=== PATIENT | female | born 1995 | race African-American/Black ===

== ENCOUNTER 2020-09-21 07:32 | Observation (INO) | payer OTHER, SELFPAY ==
--- NOTE | 2020-09-21 07:56 | OBADM ---
This patient, Ashlee Hatch, admitted to the OB room OB Post 116 for observation. Patient/family oriented to hospital policies and general routines including ID bracelet, bed and alarms, visiting hours, pain management, procedures, bathroom and other care routines, personal items, smoking policy, room service/diet, and visiting hours. Patient/Family are encouraged to report perceived risks to care and to ask questions if they do not understand what they are told or what they should do.
[2020-09-21 08:01] VITALS: BP 112/65; PULSE 83
[2020-09-21 08:03] LABS: Add Urine Microscopic? YES; Appearance Urine Cloudy (Clear); Bacteria Urine 1+ /hpf; Bilirubin Urine Negative (Negative); Blood Urine Negative (Negative); Color Urine Straw (Yellow); Glucose Urine UA Negative (Negative); Ketones Urine Negative (Negative); Leukocyte Esterase Ur Trace LEU/UL (Negative); Nitrate Urine Negative (Negative); Protein Urine Negative (Negative); RBC Urine 0-2 /hpf (0-2); Specific Grav Ur 1.006 (1.001-1.035); Squamous Epithelial Cell Urine Few /hpf (Few); Urobilinogen Urine Negative mg/dL (<2.0)
[2020-09-21 08:16] VITALS: BP 108/70; PULSE 83
--- NOTE | 2020-09-21 08:41 | PC.NURSE ---
8626- Spoke with Dr. Arenas, reveiwed NST tracing. Patient states she is feeling tightening about every 10 minutes, but now feeling the baby just moving more. NST reactive, one contraction noted. Orders to discharge patient to home, with follow up in office this week. Patient to stay well hydrated at home. labor precautions given.
--- NOTE | 2020-09-21 17:58 | PM.OBTRLD ---
OB - Triage/Final Diagnosis Visit Information Reason for evaluation: threatened labor Evaluation Baseline heart rate: 140 Variability: Average (6-10) monitor accelerations: Present monitor decelerations: None Cervical dilation (cm): 0 Cervical effacement (%): 0 station: -4 Laboratory results: Laboratory Tests 09/21/20 07:53 Urine Color Straw Urine Appearance Cloudy H Urine pH 8.0 Ur Specific [place] 1.006 Urine Protein Negative Urine Glucose (UA) Negative Urine Ketones Negative Ur Blood (Man) Negative Urine Nitrate Negative Urine Bilirubin Negative Urine Urobilinogen Negative Leukocyte Esterase Rfl Trace H Urine RBC 0-2 Urine WBC 4-6 H Ur Squamous Epith Cells Few Urine Bacteria 1+ H Hyaline Casts 1-2 Final Diagnosis (1) False labor: Code(s): O47.9 - False labor, unspecified Status: Acute
== END 2020-09-21 08:45 | disposition home or self-care (01) ==
PROVIDERS: Admitting Provider Obstetrics & Gynecology; Visit Provider Obstetrics & Gynecology
DX: O47.03 False labor before 37 completed weeks of gestation, third trimester (principal); Z3A.34 34 weeks gestation of pregnancy
CPT/HCPCS: 81001; G0378; G0379

== ENCOUNTER 2020-10-23 04:40 | Inpatient (IN) | payer OTHER, SELFPAY ==
--- NOTE | 2020-10-21 18:46 | PM.IMHP ---
H&P: HPI History of Present Illness Date/Time: 10/23/20 0600 Chief complaint: Pre-admit Narrative: Ashlee Hatch is a 25 year old AAF, , presents for IOL at 39weeks Two prior NSVVD with inductions. c/b abnormal progesterone, HSV, GBS, obesity on antiviral and antibiotic treatment, Informed consent obtained Review of Systems Review of Systems: All systems reviewed & are unremarkable except as noted in HPI and below Constitutional: Constitutional: Reports no additional constitutional complaints Eyes: Eyes: Reports no additional eye complaints ENT: Reports system reviewed and no additional complaints, except as documented Cardiovascular: Cardiovascular: Reports no additional cardiovascular complaints Respiratory: Respiratory: Reports no additional respiratory complaints Gastrointestinal: Gastrointestinal: Reports no additional gastrointestinal complaints Genitourinary: Genitourinary: Reports no additional female genitourinary complaints Musculoskeletal: Musculoskeletal: Reports no additional musculoskeletal complaints Integumentary/Breasts: Skin/Breast: Reports system reviewed and no additional complaints, except as docu Neurologic: Reports system reviewed and no additional complaints, except as documented Psychiatric: Psychiatric: Reports no additional psychiatric complaints Endocrine: Endocrine: Reports no additional endocrine complaints Hematologic/Lymphatic: Hematologic/Lymphatic: Reports no additional hematologic/lymphatic complaints Allergic/Immunologic: Allergic/Immunologic: Reports no additional allergic/immunologic complaints PMFSH Past Medical History Medical History (Updated 10/21/20 @ 18:57 by Harvinder Arenas MD) GBS (group B Streptococcus carrier), +RV culture, currently HSV (herpes simplex virus) anogenital infection Obesity Vaginal delivery 06-06-2016, 39.6 wks 1. M, 8lbs 7oz, Vaginal Vaginal delivery 08-14-2017, 38.5 wks 1. M, 8lbs 1oz, Vaginal Surgical History Surgical History (Updated 10/21/20 @ 18:55 by Harvinder Arenas MD) H/O umbilical hernia repair 12/14/17 Family History Family History (Updated 10/21/20 @ 18:58 by Harvinder Arenas MD) Sibling Asthma Grandparent Diabetes mellitus Social History Social History (Updated 10/21/20 @ 18:58 by Harvinder Arenas MD) Smoking status: Never smoker Second hand tobacco smoke exposure: No Alcohol intake: never Substance use: never Living arrangements: with family Occupation/Education: occupation Gender identity (if verbalized by the patient): Female Sexual Orientation (if Verbalized by the Patient): Straight or Heterosexual Spiritual care concerns: No Agree to blood products: Yes Meds Home Medications and Allergies Home Medications Medication Instructions Recorded Confirmed Type Daily 1 pkg PO DAILY 09/21/20 09/28/20 History progesterone micronized 200 mg PO BID 09/21/20 09/28/20 History acyclovir 800 mg PO DAILY 09/28/20 09/28/20 History Allergies Allergy/AdvReac Type Severity Reaction Status Date / Time No Known Allergies Allergy Unverified 06/05/16 21:44 Exam Const: General: cooperative, healthy appearing, comfortable, no acute distress, well developed, alert, awake and Physically active Nutritional Appearance: average body habitus, well nourished and obese Orientation/consciousness: patient oriented x3 Limitations: no limitations HENMT: Head: normal to inspection Eyes: General: appearance normal, both eyes and all related structures Neck: Neck: normal visual inspection and full ROM Chest: Chest palpation & inspection: normal inspection of the chest Breast/axilla inspection: normal inspection of the breasts Breast/axilla palpation: normal palpation of the breasts Resp: Effort & Inspection: normal respiratory effort Auscultation: clear to auscultation bilaterally Cardio: Palpation: normal PMI Rate: regular rate Rhythm: regul
--- NOTE | 2020-10-21 18:52 | WPDHPUPDATE1 ---
History and Physical Update Update Date/Time: 10/21/20 18:52 History and Physical has been reviewed, including an updated exam of the patient. There are NO changes in the patient's condition. Risks, benefits, and alternatives have been discussed and questions answered. Patient agrees to proceed with procedure. Ashlee Hatch is a 25 year old AAF, , presents for IOL at 39weeks Two prior NSVVD with inductions. c/b abnormal progesterone, HSV, GBS, obesity on antiviral and antibiotic treatment, Informed consent obtained
--- NOTE | 2020-10-21 18:53 | WPDOBADMIT ---
Obstetrics - Admit Note Admission Note: record reviewed. No pertinent additions to the history and/or any subsequent changes in the physical findings that are not consistent with the expected course of the were found. Additions to the history and/or subsequent changes in the physical findings follow. None. Ashlee Hatch is a 25 year old AAF, , presents for IOL at 39weeks Two prior NSVVD with inductions. c/b abnormal progesterone, HSV, GBS, obesity on antiviral and antibiotic treatment, Informed consent obtained
[2020-10-23] VITALS (38 sets, daily range): BP systolic 87–163; BP diastolic 42–140; PULSE 58–98; RESP 16–20; TEMP 36.4–36.9; O2SAT 98–100; BMI 37.8
--- NOTE | 2020-10-23 05:07 | LDADM ---
This patient, Ashlee Hatch, was admitted to Labor/Delivery/Recovery 102 on 10/23/20 at 04:40. Plans for labor, pain management and were discussed with patient. Patient/family oriented to hospital policies and general routines including ID bracelet, bed and alarms, visiting hours, pain management, procedures, bathroom and other care routines, personal items, smoking policy, room service/diet and guest tray routines, security routines, and visiting hours. Patient/Family are encouraged to report perceived risks to care and to ask questions if they do not understand what they are told or what they should do. See OBIX for further documentation.
[2020-10-23] MEDS: AMPICILLIN 2 GM/NS 100 ML 2 GM/100 ML BAG IVPB (05:21)
[2020-10-23] MEDS: LACTATED RINGERS 1,000 ML 125 ML IV CONT ×3 (05:22→12:47)
[2020-10-23 05:32] LABS: Basophils Percent Auto 0.2 % (0.2-1.2); Eosinophils Absolute Auto 0.1 K/mm3 (0-0.3); Eosinophils Percent Auto 0.6 % (0-4.4); Hematocrit 35.9 % (37.0-47.0); Hemoglobin 12.1 g/dL (12.0-15.0); Immature Granulocyte Absolute 0.05 K/mm3 (0.00-0.031); Immature Granulocyte Percent A 0.5 % (0-0.5); Lymphocytes Absolute Auto 2.07 K/mm3 (0.9-3.2); Lymphocytes Percent Auto 21.4 % (18.3-44.2); Mean Corpuscular HGB Conc 33.7 g/dl (32-36); Mean Corpuscular Hemoglobin 29.9 pg (26-34); Mean Corpuscular Volume 88.6 fl (80-100); Mean Platelet Volume 10.5 fl (7.4-10.4); Monocytes Absolute Auto 0.9 K/mm3 (0.1-0.6); Monocytes Percent Auto 8.8 % (2.6-8.5); Neutrophils Absolute Auto 6.6 K/mm3 (1.3-6.7); Neutrophils Percent Auto 68.5 % (45.5-73.1); Platelet Count Result 270 k/mm3 (150-375); Red Blood Count 4.05 M/mm3 (4.2-5.4); Red Cell Distribution Width 12.8 % (11.5-14.5); White Blood Count 9.7 K/mm3 (4.5-10.0)
[2020-10-23 05:46] LABS: Amphetamine Screen Urine Negative (Negative); Barbiturate Screen Urine Negative (Negative); Benzodiazepines Screen Urine Negative (Negative); Cannabinoid Screen Urine Negative (Negative); Cocaine Screen Urine Negative (Negative); Methadone Screen Urine Negative (Negative); Opiate Screen Urine Negative (Negative); Phencyclidine Screen Urine Negative (Negative)
[2020-10-23] MEDS: OXYTOCIN 30 UNITS/NS 500 ML 30 UNITS/500 ML BAG IV CONT (05:57)
--- NOTE | 2020-10-23 06:13 | WPDANESEPP ---
Anes - Eval Pre Procedure Procedure: labor epidural Date/Time: 10/23/20 06:13 Surgeon: lizzie Pre Op Diagnosis: Induction of Labor Patient Data Age: 25 Gender: F Height: 1.63 m Weight: 100 kg Last Vital Signs Pulse 73 10/23/20 06:01 BP 103/56 L 10/23/20 06:01 Allergies Allergy/AdvReac Type Severity Reaction Status Date / Time No Known Allergies Allergy Unverified 06/05/16 21:44 Home Medications Medication Instructions Recorded Confirmed Type Daily 1 pkg PO DAILY 09/21/20 09/28/20 History progesterone micronized 200 mg PO BID 09/21/20 09/28/20 History acyclovir 800 mg PO DAILY 09/28/20 09/28/20 History Laboratory Tests 10/23/20 10/23/20 10/23/20 05:09 05:09 05:11 WBC 9.7 K/mm3 K/mm3 (4.5-10.0) RBC 4.05 M/mm3 L M/mm3 (4.2-5.4) Hgb 12.1 g/dL g/dL (12.0-15.0) Hct 35.9 % L % (37.0-47.0) MCV 88.6 fl fl (80-100) MCH 29.9 pg pg (26-34) MCHC 33.7 g/dl g/dl (32-36) RDW 12.8 % % (11.5-14.5) Plt Count 270 k/mm3 k/mm3 (150-375) MPV 10.5 fl H fl (7.4-10.4) Immature Gran % (Auto) 0.5 % % (0-0.5) Neut % (Auto) 68.5 % % (45.5-73.1) Lymph % (Auto) 21.4 % % (18.3-44.2) [place] % (Auto) 8.8 % H % (2.6-8.5) Eos % (Auto) 0.6 % % (0-4.4) Baso % (Auto) 0.2 % % (0.2-1.2) Lymph # (Auto) 2.07 K/mm3 K/mm3 (0.9-3.2) [place] # (Auto) 0.9 K/mm3 H K/mm3 (0.1-0.6) Eos # (Auto) 0.1 K/mm3 K/mm3 (0-0.3) Baso # (Auto) 0.0 K/mm3 K/mm3 (0.0-0.1) Abs Immat Gran (auto) 0.05 K/mm3 H K/mm3 (0.00-0.031) Absolute Neuts (auto) 6.6 K/mm3 K/mm3 (1.3-6.7) Absolute Nucleated RBC 0.0 K/mm3 K/mm3 (0.0-0.012) Nucleated RBC % 0.0 % % (0.0-0.2) Urine Opiates Screen Negative (Negative) Urine Methadone Screen Negative (Negative) Ur Barbiturates Screen Negative (Negative) Ur Phencyclidine Scrn Negative (Negative) Ur Amphetamine Screen Negative (Negative) U Benzodiazepines Scrn Negative (Negative) Urine Cocaine Screen Negative (Negative) U Cannabinoids Screen Negative (Negative) RPR Pending Patient hx anesthesia problems: none Family hx anesthesia problems: none PMFSH Past Medical History Medical History (Updated 10/21/20 @ 18:57 by Harvinder Arenas MD) GBS (group B Streptococcus carrier), +RV culture, currently HSV (herpes simplex virus) anogenital infection Obesity Vaginal delivery 06-06-2016, 39.6 wks 1. M, 8lbs 7oz, Vaginal Vaginal delivery 08-14-2017, 38.5 wks 1. M, 8lbs 1oz, Vaginal Surgical History Surgical History (Updated 10/21/20 @ 18:55 by Harvinder Arenas MD) H/O umbilical hernia repair 12/14/17 Family History Family History (Updated 10/21/20 @ 18:58 by Harvinder Arenas MD) Sibling Asthma Grandparent Diabetes mellitus Social History Social History (Updated 10/21/20 @ 18:58 by Harvinder Arenas MD) Smoking status: Never smoker Second hand tobacco smoke exposure: No Alcohol intake: never Substance use: never Gender identity (if verbalized by the patient): Female Spiritual care concerns: No Agree to blood products: Yes Exam Day of Procedure 10/23/20 06:13
--- NOTE | 2020-10-23 09:28 | PM.OBPNLAB ---
Pain Control Date/time seen: 10/23/20 09:28 Pain control: tolerating well Comments: Ashlee Hatch is a 25 year old AAF, , presents for IOL at 39weeks Two prior NSVVD with inductions. c/b abnormal progesterone, HSV, GBS, obesity on antiviral and antibiotic treatment, Informed consent obtained Pelvic Exam Dilation (cm): 2 Effacement (%): 75 station: -2 Amniotic membrane status: Ruptured (AROM clear af IUPC placed) Contractions Monitor mode: Internal (iupc/ext fht) Contraction frequency: 2 Contraction duration: 45 Contraction pattern: Regular Contraction phase: Contraction Contraction intensity: Moderate Status status: Category l Assessment and Plan Pitocin rate (mU/min): 10 Assessment: induction ongoing Plan: continuous present management
[2020-10-23] MEDS: AMPICILLIN 1 GM/NS 50 ML 1 GM/50 ML BAG IVPB ×2 (09:31→14:07)
[2020-10-23 12:03] LABS: Rapid Plasma Reagin Non-Reactive (NonReactive)
[2020-10-23] MEDS: fentaNYL CITRATE INJ (*CRX) 100 MCG/2 ML VIAL IV PUSH ×2 (12:47→14:07)
--- NOTE | 2020-10-23 14:12 | PM.OBPNLAB ---
Pain Control Date/time seen: 10/23/20 14:12 Pain control: tolerating well and narcotic analgesia Comments: Ashlee Hatch is a 25 year old AAF, , presents for IOL at 39weeks Two prior NSVVD with inductions. c/b abnormal progesterone, HSV, GBS, obesity on antiviral and antibiotic treatment, Informed consent obtained Pelvic Exam Dilation (cm): 6 Effacement (%): 90 station: -1 Amniotic membrane status: Ruptured (AROM clear af IUPC placed) Contractions Monitor mode: Internal (iupc/ext fht) Contraction frequency: 2 Contraction duration: 45 Contraction pattern: Regular Contraction phase: Contraction Contraction intensity: Moderate Status status: Category l Assessment and Plan Pitocin rate (mU/min): 12 Assessment: active labor and induction ongoing Plan: continuous present management
[2020-10-23] MEDS: ONDANSETRON INJ 4 MG/2 ML VIAL IV PUSH (14:15)
--- NOTE | 2020-10-23 14:53 | PM.OBPRVD ---
OB - Delivery Note Procedure Delivery date: 10/23/20 Procedure: Normal spontaneous vertex vaginal delivery a viable male infant and placenta events: Labor Induction Intrapartal events: None Induction method: per pitocin protocol Delivery augmentation: rupture of membranes Delivery monitor: external FHT and internal uterine Route of delivery: Episiotomy description: None Laceration Description: None Specimen: Yes ( placenta, cord blood gases, cord blood) Quantitative Blood Loss (ml): 150 Anesthesia type: None Disposition: floor Complications: none Narrative: normal spontaneous vertex vaginal delivery a viable male over intact perineum delivered with normal anterior shoulder delivered placed onto the maternal abdomen cord clamped and cut baby evaluated by nursery nurse in attendance scores 8 9 weight 53218 in long. Placenta delivered spontaneously intact three-vessel cord the uterus contracted well Pitocin given intravenously no cuts tears or lacerations sponge and needle instrument counts were correct in LDR room 1. 0 2 Baby Date of : 10/23/20 Time of : 14:44 Weeks of gestation at delivery: 39 gender: Male Weight (pounds): 6 Weight (ounces): 12 presentation: vertex position: Left Occiput Anterior Placenta delivery description: Spontaneous and Normal Configuration cord vessel description: 3 Vessels score one minute: 8 score five minutes: 9 Narrative: spontaneous respirations and cry ,normal transition, normal exam, taken to nursery stable condition
--- NOTE | 2020-10-23 15:00 | PM.OBDSVD ---
DS: Admitting Diagnosis Admitting Diagnosis Admitting Diagnosis: Induction of Labor Term HSV GBS carrier Obesity DS: Discharge Diagnosis Discharge Diagnosis (1) Term delivered: Code(s): O80 - Encounter for full-term uncomplicated delivery Status: Acute (2) Obesity: Code(s): E66.9 - Obesity, unspecified Status: Acute (3) GBS (group B Streptococcus carrier), +RV culture, currently : Code(s): O99.820 - Streptococcus B carrier state complicating Status: Acute (4) HSV (herpes simplex virus) anogenital infection: Code(s): A60.9 - Anogenital herpesviral infection, unspecified Status: Acute (5) Elective induction of labor planned: Status: Acute OB - DS: Summary Hospital Course Time spent discussing smoking cessation with patient: 3 to 10 minutes OB Procedures : Ultrasound OB Procedures Intrapartum: Spontaneous Vag Delivery and GBS prophylaxis OB Procedures: : None Peripartum Data Infant Delivery Method: Natural Vaginal Laceration Description: None Episiotomy description: None complications: none 1: Gender: Male Disposition of : home Status at Discharge Functional status at discharge: independent ambulation Overall status at discharge: patient is back to baseline Time Spent with Patient Time attestation: Total time spent providing and/or coordinating discharge services: Time spent: Less than 30 minutes DS: Data Data Completed and Pending Labs on day of discharge: Labs from last 24 hours 10/23/20 10/23/20 10/23/20 05:11 05:09 05:09 WBC RBC Hgb Hct MCV MCH MCHC RDW Plt Count MPV Immature Gran % (Auto) Neut % (Auto) Lymph % (Auto) [place] % (Auto) Eos % (Auto) Baso % (Auto) Lymph # (Auto) [place] # (Auto) Eos # (Auto) Baso # (Auto) Abs Immat Gran (auto) Absolute Neuts (auto) Absolute Nucleated RBC Nucleated RBC % Urine Opiates Screen Negative Urine Methadone Screen Negative Ur Barbiturates Screen Negative Ur Phencyclidine Scrn Negative Ur Amphetamine Screen Negative U Benzodiazepines Scrn Negative Urine Cocaine Screen Negative U Cannabinoids Screen Negative RPR Non-reactive Blood Type B Positive Antibody Screen Negative 10/23/20 05:09 WBC 9.7 RBC 4.05 L Hgb 12.1 Hct 35.9 L MCV 88.6 MCH 29.9 MCHC 33.7 RDW 12.8 Plt Count 270 MPV 10.5 H Immature Gran % (Auto) 0.5 Neut % (Auto) 68.5 Lymph % (Auto) 21.4 [place] % (Auto) 8.8 H Eos % (Auto) 0.6 Baso % (Auto) 0.2 Lymph # (Auto) 2.07 [place] # (Auto) 0.9 H Eos # (Auto) 0.1 Baso # (Auto) 0.0 Abs Immat Gran (auto) 0.05 H Absolute Neuts (auto) 6.6 Absolute Nucleated RBC 0.0 Nucleated RBC % 0.0 Urine Opiates Screen Urine Methadone Screen Ur Barbiturates Screen Ur Phencyclidine Scrn Ur Amphetamine Screen U Benzodiazepines Scrn Urine Cocaine Screen U Cannabinoids Screen RPR Blood Type Antibody Screen Discharge Plan Discharge Attending physician on discharge: Harvinder Arenas Discharging Clinician: Harvinder Arenas Anticipated Discharge Date/Time: 10/25/20 15:02 Patient Disposition: Home, Self-Care Activity: may shower, unlimited and may drive after 2 weeks Diet: as tolerated and regular Wound Care Instructions: follow printed instructions Discharge Instructions: routine Patient Instructions: Antibiotic Form Stand Alone Forms: General Discharge Information Follow-up/Referrals: Harvinder Arenas MD [Physician] - 3 Weeks Discharge Medications: New ibuprofen 600 mg Tablet 600 mg PO Q6H Qty: 90 RF: 2 polysaccharide iron complex 150 mg iron Capsule 150 mg PO BIDWM Qty: 90 RF: 2 Continued acyclovir 800 mg Tablet 800 mg PO DAILY RF: 0 Daily [phone] mg-mcg-mg Combo Pack 1 pkg PO ALLAN
[2020-10-23] MEDS: OXYTOCIN 30 UNITS/NS 500 ML 30 UNITS/500 ML BAG 125 UNITS IV CONT (15:35)
[2020-10-23] MEDS: HYDROcodone/acetaminophen (*CRX) 5-325 MG TABLET 1 TAB PO (16:23)
[2020-10-23] MEDS: IBUPROFEN 600 MG TABLET PO ×2 (16:24→23:30)
--- NOTE | 2020-10-23 17:10 | PC.NURSE ---
Patient transferred to post room #290 ambulatory from labor and delivery. Support person present. Oriented to unit, room, information board, rooming in, admission packet and security measures. Patient verbalizes understanding.
[2020-10-23] MEDS: COSYNTROPIN 0.25 MG/ML VIAL 0.75 MG IV PUSH (19:05)
[2020-10-24 06:21] LABS: Hematocrit 31.5 % (37.0-47.0); Hemoglobin 10.5 g/dL (12.0-15.0)
[2020-10-24 10:51] VITALS: BP 96/53; PULSE 81; RESP 16; TEMP 36.6; O2SAT 99
[2020-10-24] MEDS: IBUPROFEN 600 MG TABLET PO (10:51)
[2020-10-24] MEDS: DOCUSATE SODIUM 100 MG CAPSULE PO (10:51)
--- NOTE | 2020-10-24 19:21 | PC.NURSE ---
1711 Called [facility] in [place] on [facility] to see if the prescription of Ibuprofen and Iron had been sent due to it not showing up on the D/C papers. The Pharmacist stated that no prescription was there for this pt. The pt was told to get these over the counter. She V/U'd.
--- NOTE | 2020-10-24 19:28 | PC.NURSE ---
1739 FOB brought car seat and base to the room. He was informed that the base needed to go back to the car and he needed to install it and that we do not do that we just need to hear the car seat click down into the installed base. He V/U'd. 1749 FOB carried infant in the car seat out to the car after this RN showed MOB how to strap infant into the seat and make sure that the seat belts were fastened properly. She V/U'd. As FOB was clicking the down into the base the base partly fell into the floor of the car. FOB was informed that the base needed to be installed into the seat belt properly so it would not fall like that. This RN recommended we take infant back into the lobby while he did this. FOB was a bit agitated and rushed the infant back into the lobby before the MOB and this RN could even get in there and he left the infant on the bench and rushed back to the car. This RN and the MOB reached the soon after. The was safe. The FOB was out at the car in the back seat supposedly installing the base properly. He rushed back to the lobby in about 5 minutes and stated the seat was ready. This RN stated that there was no reason to hitchcock that we had time and the was emergency medicine physician his car seat. When the FOB tried to the infant in the base the second time it was apparent that the seat belt was not fastened to the base and the FOB put the car seat into the base anyway. This RN stated that this was not the correct way to install the base and car seat. The FOB continued to put the seat belt on over the car seat and base together without the base being fastened into the car. The MOB stated that the car seat can be installed 2 ways. After the FOB fastened the seat belt over the improperly installed car seat and base. He said thank you and have a good evening and shut the back car door and ran around to the drivers seat and got into the car. This RN motioned for the MOB to roll down the window she did. This RN stated to both the FOB and the MOB for the safety of your baby you need to re install the car seat properly. The FOB was very agitated and interrupted by screaming major profanity and stated That I had already taken up too much of his time and he was leaving if I did back away from the [employer] car then he put the car into park and got out and started to run around the car towards me. I walked over to the lobby window and motioned for the Simulation Analyst to come out. The FOB got back into the car and sped away. The FOB smelled like skunk and so did the car. The FOB eyes were glossed over and he was in a hurry and very agitated by all of this. This was reported to the infrastructure security architect on duty and the next shift factory helper and Dr. Francisco.
--- NOTE | 2020-10-25 16:05 | PC.NURSE ---
10/24/2020 @ 0513 Patient was given the opportunity to view the discharge video Mother & Baby Care, The First Two Weeks and to ask questions. Patient declined viewing the video and has been given the mother/baby guide for home reference.
== END 2020-10-24 17:50 | disposition home or self-care (01) | DRG 560 ==
LOC: ANHLDR 15:06 → ANHOB2 17:17
PROVIDERS: Admitting Provider Obstetrics & Gynecology; Visit Provider Obstetrics & Gynecology
DX: O99.824 Streptococcus B carrier state complicating childbirth (principal); O98.32 Other infections with a predominantly sexual mode of transmission complicating childbirth; A60.00 Herpesviral infection of urogenital system, unspecified; O99.214 Obesity complicating childbirth; E66.9 Obesity, unspecified; Z3A.39 39 weeks gestation of pregnancy; Z37.0 Single live birth
CPT/HCPCS: 36415; 80307; 85014; 85018; 85025; 86592; 86850; 86900; 86901; 88307; A9270; J0290; J0834; J2405; J2590; J2795; J3010; J7120

== ENCOUNTER 2025-01-27 12:46 | Outpatient (CLI) | payer OTHER, SELFPAY ==
--- NOTE | ~2025-01-27 | US_ITS ---
EXAMINATION: US OB <= 14 weeks fetus DATE: 01/28/2025 0:23 CDT INDICATION: Positive test COMPARISON: None TECHNIQUE: Real-time transabdominal obstetric ultrasound. FINDINGS: Last menstrual period is given as 10/14/2024 4 para 3 Estimated date of delivery by last menstrual period is 07/21/2025 The uterus measures 9.9 x 7 0.70, 6.3 cm. A gestational sac is identified within the uterus. A pole is identified, with a crown-rump length that measures 4.1 cm, corresponding to an approx imate gestational age of 11 weeks and 0 days. cardiac activity is identified at a rate of 175 bpm. Despite prolonged interrogation, the right ovary was not visualized. The left ovary measures 2.9 x 1.9 x 2.1 cm. Estimated date of delivery by ultrasound is 08/18/2025 IMPRESSION: Single intrauterine gestation with an approximate gestational age of 11 weeks and 0 days, with cardiac activity identified. Reviewed, dictated and finalized at location A. IMPRESSION: Single intrauterine gestation with an approximate gestational age of 11 weeks a nd 0 days, with cardiac activity identified.
--- OUTSIDE RECORDS SUMMARY | 2025-01-27 15:05 | XMS_ITS | Data Portability ---
Author Organization [facility] Address [address] [place] [address] Care Team Providers Care Blue Leather Sorter Name Role Phone MARISSASAY ANTONIO Invoice Checker [phone] Assessment Encounter Date Assessment Date Assessment LastModified by Organization Details LastModified Time 10/13/2022 10/13/2022 SUSSY Seymour Not available 10/13/2022 09:24:11 Plan of Treatment Reminders Order Date Submit Date Provider Last Modified By Organization Details Last Modified Time Details Appointments NEW OB 30 2024 01:30P M DAVIN PARK PA-C Not available Not available Not available Lab urinaly sis, dipstic k 2024 025 [email or web address] In-Office Order, Internal Use Only DO Not Attach Compendium DO Not Attach Compendium, Do Not Delete/merge, [id number] 01/16/2025 15:33:38 pregnan cy test, urine 2024 025 [email or web address] In-Office Order, Internal Use Only DO Not Attach Compendium DO Not Attach Compendium, Do Not Delete/merge, [id number] 01/16/2025 15:33:38 HCG, intact + beta subunit , quant, serum or plasma 2024 025 [facility], [address], [address] [address], [place], [address], 12/10/2024 14:13:33 pregnan cy test, urine 2024 025 HEATHER In-Office Order, Internal Use Only DO Not Attach Compendium DO Not Attach Compendium, Do Not Delete/merge, [id number] 12/09/2024 16:03:08 pap, IG + reflex HPV 2022 023 [place] [facility], 2022 Mari [address], [address], [place], [address], 11/02/2023 20:08:42 pregnan cy test, urine 2022 023 [email or web address] In-Office Order, Internal Use Only DO Not Attach Compendium DO Not Attach Compendium, Do Not Delete/merge, [id number] 10/31/2023 10:23:58 chlamyd ia trachom atis + neisser ia gonorrh oeae + trichom onas vaginal is DNA panel, SHAYAN+pro be, unspeci fied specime n 2022 023 [place] [facility], 2022 Mari [address], [address], [place], [address], 11/02/2023 03:08:08 pregnan cy test, urine 2022 023 [email or web address] In-Office Order, Internal Use Only DO Not Attach Compendium DO Not Attach Compendium, Do Not Delete/merge, [id number] 10/20/2023 09:45:34 pregnan cy test, urine 2021 022 [place] In-Office Order, Internal Use Only DO Not Attach Compendium DO Not Attach Compendium, Do Not Delete/merge, [id number] 10/13/2022 11:02:50 Referral None recorde d. Procedures None recorde d. Surgeries None recorde d. Imaging US, obstetr ic, 1st trimest er 2024 025 [facility] (Imaging), [address], [place], [address], 01/17/2025 09:40:37 Medication Orders Prenata l 28 mg iron-80 0 mcg tablet 2024 025 [facility] [address], [place], [id number], 01/16/2025 15:33:42 Simpess e 0.15 mg-30 mcg (84)/10 mcg(7) tablets ,3 month dose pack 2022 023 [facility], [address], [place], [id number], 01/16/2025 15:01:47 Seasoni que 0.15 mg-30 mcg (84)/10 mcg(7) tablets ,3 month dose pack 2021 022 [id number], [address], [place], [id number], 01/16/2025 15:01:47 Patient TargetsNo targets recorded. Patient Instructions Encounter Date Encounter Id Patient Instructions Last Modified By Organization Details Last Modified Time 10/20/2023 [id number] A healthy lifestyle: care instructions Not available 10/20/2023 16:59:02 10/31/2023 [id number] Well Visit, Ages 18 to 65: Care Instructions [email or web address] Not available 10/31/2023 10:23:38 12/09/2024 [id number] Attending Physician Attestation S: 29 yo F here for combined OCP refill. Ran out of pills in Dec but used condoms regularly. O: BP 124/78. BMI 37.8. A/P: Contraception refill - UPT positive; unable to refill OCPs at this time. Patient to RTC for serum hCG, discussion of options. {{I did not personally see or examine the patient with the resident. I was physically present to provide indirect supervision through entire encounter.* I personally saw the patient with the resident.}} Plan discussed with resident as documented in my brief note above. Loida Lange MD [email or web address] Not available 12/09/2024 16:02:35 01/16/2025 [id number] A healthy lifestyle: care instructions [email or web address] Not available 01/16/2025 15:33:37 --Discussed with Dr. Mariama [email or web address] Not available 01/17/2025 14:59:35 Reason for Referral None Reported. Results Created Date Observation Date Name Description Value Unit Range Abnormal Flag Note LastModifiedBy Organization Detail LastModifiedTime 10/13/20 22 10/13/2022 pregn mac test, urine HCG negati ve Not Available In-Office Order Internal Use Only DO Not Attach Compendium DO Not Attach Compendium, Do Not Delete/merge, [id number] 10/13/2022 09:00:47 10/20/20 23 10/20/2023 pregn mac test, urine HCG negati ve Not Available In-Office Order Internal Use Only DO Not Attach Compendium DO Not Attach Compendium, Do Not Delete/merge, [id number] 10/20/2023 09:40:34 10/31/20 23 11/01/2023 IGP,A PTIMA HPV,A GE GDLN age gdln acog testing 21- Not Available [facility] ([facility]) [address] [facility], [place], [address], 11/02/2023 20:08:42 10/31/20 23 11/02/2023 IGP, RFX APTIM A HPV ASCU diagnosis: Commen t NEGAT LG FOR INTRA EPITH ELIAL LESIO N OR RADHA HERRERA . Not Available [facility] ([facility]) [address] [facility], [place], [address], 11/02/2023 20:08:43 10/31/20 23 11/02/2023 IGP, RFX APTIM A HPV ASCU specimen adequacy: Commen t Satis facto ry for evalu ation . Endoc ervic al and/o r squam ous metap lasti c cells (endo cervi fred compo nent) are prese nt. Not Available [facility] ([facility]) [address] [facility], [place], [address], 11/02/2023 20:08:43 10/31/20 23 11/02/2023 IGP, RFX APTIM A HPV ASCU clinician provided ICD10: Commen t Z01.4 19 Not Available [facility] ([facility]) [address] [place], [address], 11/02/2023 20:08:43 10/31/20 23 11/02/2023 IGP, RFX APTIM A HPV ASCU performed by: Cholo delacruz, Cytot amber baker (ASCP ) Not Available [facility] ([facility]) [address] [place], [address], 11/02/2023 20:08:43 10/31/20 23 11/02/2023 IGP, RFX APTIM A HPV ASCU . . Not Available [facility] ([facility]) [address] [facility], [place], [address], 11/02/2023 20:08:43 10/31/20 23 11/02/2023 IGP, RFX APTIM A HPV ASCU note: Cholo baker The Pap smear is a scree luis test desig thais to aid in the detec tion of shyaan ligna nt and malig nant condi tions of the uteri ne cervi x. It is not a diagn ostic proce dure and shoul d not be used as the sole means of detec ting cervi fred cance r. Both false -posi tive and false -nega tive repor ts do occur . Not Available [facility] ([facility]) [address] [place], [address], 11/02/2023 20:08:43 10/31/20 23 11/02/2023 IGP, RFX APTIM A HPV ASCU test methodology: Cholo baker This liqui d based ThinP rep(R ) pap test was scree thais with the use of an image guide ivonne lemus. Not Available [facility] ([facility]) [address] [place], [address], 11/02/2023 20:08:43 10/31/20 23 11/02/2023 IGP, RFX APTIM A HPV ASCU . Commen t The HPV DNA refle x crite geovanni were not met with this speci men resul t there fore, no HPV testi ng was perfo rmed. Not Available [facility] ([facility]) [address] [facility], [place], [address], 11/02/2023 20:08:43 10/31/20 23 11/01/2023 CT, NG, TRICH VAG BY SHAYAN chlamydia by SHAYAN Negati ve negati ve Not Available [facility] ([facility]) [address] [place], [address], 11/02/2023 03:08:07 10/31/20 23 11/01/2023 CT, NG, TRICH VAG BY SHAYAN gonococcus by SHAYAN Negati ve negati ve Not Available [facility] ([facility]) [address] [place], [address], 11/02/2023 03:08:07 10/31/20 23 11/01/2023 CT, NG, TRICH VAG BY SHAYAN trich vag by SHAYAN Negati ve negati ve Not Available [facility] ([facility]) [address] [place], [address], 11/02/2023 03:08:07 10/31/20 23 10/31/2023 pregn mac test, urine HCG negati ve Not Available In-Office Order Internal Use Only DO Not Attach Compendium DO Not Attach Compendium, Do Not Delete/merge, [id number] 10/31/2023 10:15:58 12/09/19 25 12/10/2024 HCG,B ETA SUBUN IT, QNT HCG,beta subunit,qnt, serum 30 mIU/m L Femal e (Non- pregn ant) 0 - 5 (Post menop ausal ) 0 - 8 Femal e (Preg nant) Weeks of Gesta tion 3 6 - 71 4 10 - 750 5 333 - 2366 6 945 - 45666 7 0029 -3443 63 8 64555 -6892 71 9 94524 -0659 10 10 18161 -1869 77 12 55229 -2106 12 14 11676 - 28169 15 16744 - 26123 16 6827 - 20057 17 0264 - 52781 18 6282 - 16792 Marisabel ECLIA metho dolog y Not Available [facility] ([facility]) [address] [facility], [place], [address], 12/10/2024 14:13:33 12/09/19 25 12/09/2024 pregn mac test, urine HCG positi ve Not Available In-Office Order Internal Use Only DO Not Attach Compendium DO Not Attach Compendium, Do Not Delete/merge, 12/09/2024 14:43:36 01/17/20 25 01/16/2025 urina lysis , dipst ick Leukocytes Negati ve Not Available In-Office Order Internal Use Only DO Not Attach Compendium DO Not Attach Compendium, Do Not Delete/merge, 01/16/2025 15:03:09 01/17/20 25 01/16/2025 urina lysis , dipst ick Nitrite negati ve Not Available In-Office Order Internal Use Only DO Not Attach Compendium DO Not Attach Compendium, Do Not Delete/merge, 01/16/2025 15:03:09 01/17/20 25 01/16/2025 urina lysis , dipst ick Urobilinogen .2 Not Available In-Of fice Order Internal Use Only DO Not Attach Compendium DO Not Attach Compendium, Do Not Delete/merge, 01/16/2025 15:03:09 01/17/20 25 01/16/2025 urina lysis , dipst ick Protein Negati ve Not Available In-Office Order Internal Use Only DO Not Attach Compendium DO Not Attach Compendium, Do Not Delete/merge, 01/16/2025 15:03:09 01/17/20 25 01/16/2025 urina lysis , dipst ick pH 6.0 Not Available In-Office Order Internal Use Only DO Not Attach Compendium DO Not Attach Compendium, Do Not Delete/merge, 01/16/2025 15:03:09 01/17/20 25 01/16/2025 urina lysis , dipst ick Blood Negati ve Not Available In-Office Order Internal Use Only DO Not Attach Compendium DO Not Attach Compendium, Do Not Delete/merge, 01/16/2025 15:03:09 01/17/20 25 01/16/2025 urina lysis , dipst ick Specific Downey 1.030 Not Available In-Off ice Order Internal Use Only DO Not Attach Compendium DO Not Attach Compendium, Do Not Delete/merge, 01/16/2025 15:03:09 01/17/20 25 01/16/2025 urina lysis , dipst ick Ketone Negati ve Not Available In-Office Order Internal Use Only DO Not Attach Compendium DO Not Attach Compendium, Do Not Delete/merge, 01/16/2025 15:03:09 01/17/20 25 01/16/2025 urina lysis , dipst ick Bilirubin Negati ve Not Available In-Office Order Internal Use Only DO Not Attach Compendium DO Not Attach Compendium, Do Not Delete/merge, 01/16/2025 15:03:09 01/17/20 25 01/16/2025 urina lysis , dipst ick Glucose Negati ve Not Available In-Office Order Internal Use Only DO Not Attach Compendium DO Not Attach Compendium, Do Not Delete/merge, 01/16/2025 15:03:09 01/17/20 25 01/16/2025 urina lysis , dipst ick Appearance Clear Not Available In-Offi ce Order Internal Use Only DO Not Attach Compendium DO Not Attach Compendium, Do Not Delete/merge, 01/16/2025 15:03:09 01/17/20 25 01/16/2025 urina lysis , dipst ick Color Yellow Not Available In-Office Order Internal Use Only DO Not Attach Compendium DO Not Attach Compendium, Do Not Delete/merge, 01/16/2025 15:03:09 01/17/20 25 01/16/2025 pregn mac test, urine HCG positi ve Not Available In-Office Order Internal Use Only DO Not Attach Compendium DO Not Attach Compendium, Do Not Delete/merge, [id number] 01/16/2025 15:03:18 Result Notes None recorded. Problems Name Problem SNOMED Code Status Onset Date Resolution Date Notes Provider Name and Address Organization Details Recorded Time Anemia 665366965 Active 2017 GIANNA [place], [place] - [facility] 11:44:15 Pregnanc y 06632745 Completed 201903/18/2020 GIANNA [place], [place] [facility] 5 15:06:02 Group B Streptoc occus carrier 84815032675 03 Completed 2016 GIAN[place] [facility] 11:44:15 Abnormal progeste dash 468221676 Completed 2016 low at initial ob labs [place] [facility] 11:44:15 Gastroes ophageal reflux disease 707117237 Completed [place]IANNA [place] [facility] 11:44:16 Obesity 585933677 Completed 2016 [place] [facility] 11:44:16 Umbilica l hernia 883199579 Completed 2016 [place] [facility] 11:44:16 Varicell a vaccinat ion Completed YANN DE LOS SANTOS Attn: Minoo underwood,[address] [place], [address], [place] [facility] 0 17:35:43 Anemia 865855021 Completed 2017 G[place] [facility] 11:44:15 Genital herpes simplex 91437019 Active 2019 [place] [facility] 11:44:15 Genital herpes simplex 18570386 Completed 2019 [place] [facility] 11:44:15 Requires varicell a vaccinat ion 714801181 Active 2019 Taisha Fernandez [place] [facility] 1 11:44:16 Requires varicell a vaccinat ion 201541038 Completed 2019 Taisha Fernandez [place] [facility] 1 11:44:16 Steriliz ation requeste d [id number] Completed 2019 pt no longer desires tubal Harvinder [place]ren[place] [facility] 0 15:15:50 Steriliz ation requeste d [id number] Completed 201910/07/2020 pt no longer desires tubal Harvinder [place] [facility] 0 11:47:33 Pregnanc y 05870548 Active 2024 Alexa Figueroa [place] [facility] 5 15:06:01 Abnormal progeste dash 635580188 Active 2016 low at initial ob labs Taisha Fernandez [place] [facility] 1 11:44:15 Abnormal progeste dash 011000149 Completed Adilene Blank [place] [facility] 6 16:45:59 Vitamin D deficien cy 02657692 Active Adilene Ramirezer [place] [facility] 6 16:45:59 Vitamin D deficien cy 95091426 Completed [place]il[place] Abhay [place] [facility] 6 16:45:59 Varicell a 04310122 Completed 09/07/2018 Harvinder [place]ren[place] [facility] 8 07:49:34 Varicell a 41305146 Completed Adil[place] Blank [place] [facility] 6 16:45:59 Gastroes ophageal reflux disease 325249130 Active Taisha Fernandez [place] [facility] 1 11:44:16 Gastroes ophageal reflux disease 036655930 Completed Adil[place] Blank [place] [facility] 6 16:45:59 Pain in throat 186294260 Completed 02/16/2017 Harvinder [place]ren[place] [facility] 7 11:49:49 Pain in throat 888274865 Completed Adilene [place] [facility] 6 16:45:59 Sinusiti s 17456257 Active Ad[place] [facility] 6 16:45:59 Sinusiti s 46402464 Completed [place] [facility] 6 16:45:59 Upper respirat ory infectio n 11365258 Completed 10/07/2020 Harvinder KincaidDeepa [place] [facility] 0 11:47:37 Upper respirat ory infectio n 85478665 Completed [place]il[place] [facility] 6 16:45:59 Postpart state 52337865 Completed 01/19/2017 Harvinder KincaidDeepa [place] [facility] 7 12:17:04 Pregnanc y 42764074 Completed 201602/16/2017 GIAN[place] [facility] 5 15:06:02 Group B Streptoc occus carrier 78849772368 03 Active 2016 Taisha Fernandez [place] [facility] 1 11:44:16 Group B Streptoc occus carrier 59669449544 03 Completed 2016 Adilene Ramirezer [place], [place] [facility] 7 10:18:30 Varicell a immune 024467601 Completed 201601/25/2017 Harvinder [place] [facility] 7 09:33:40 Varicell a vaccinat ion Completed varicell a non immune needs vaccine [facility] Adilene Ramirezer [place] [facility] 7 10:18:30 Varicell a vaccinat ion Completed 03/31/2020 Harvinder jack[place] [facility] 0 09:48:34 Abnormal progeste dash 402690278 Completed 2016 low at initial ob labs Adilene Ramirezer [place], [place] [facility] 7 10:18:31 Umbilica l hernia 485715910 Active 2016 GIANNA Hassan, [facility] 1 11:44:16 Obesity 166973025 Active 2016 Taisha Fernandez MA null, [facility] 1 11:44:16 Varicell a 62900244 Completed Adilene Blank null, [facility] 7 10:18:30 Problem Notes None recorded. Procedures Surgical History Date Name Laterality Status Provider Name and Address Organization Details Recorded Time 3 Date of Last Pap Smear completed Alicia Mortensen MA [facility] 10/31/2023 09:53:53 2 Control Implant Removal completed YANN DODSON Attn: Accounting,[address] [place], [address], [facility] 10/13/2022 09:19:33 1 Control Implant Insertion completed Harvinder Arenas [facility] 11/19/2020 10:51:21 8 Hernia Repair completed Alicia Mortensen MA [facility] 03/18/2020 15:05:10 Imaging Results None recorded. Procedure Notes None recorded. Medical Equipment None Reported. Allergies Allergen ID Allergen Name Allergen Category Reaction Reaction Severity Criticality Documentation Date Start Date Code Code System Note Provider Name and Address Organization Details Recorded Time 201554 acyclovir medicatio n hives moderate Not available 08/27/2020 281 RxNorm canno t take 800mg dose of ayclo vir Not Available Not Available Not Available Medications Name Sig Start Date Stop Date Status Note LastModified by Organization Details LastModified Time azithromyci n 250 mg tablet TAKE 2 TABLETS (500 MG) BY ORAL ROUTE ONCE DAILY FOR 1 DAY THEN 1 TABLET (250 MG) BY ORAL ROUTE ONCE DAILY FOR 4 DAYS active Not Available Not Available No t Available ibuprofen 800 mg tablet Take 1 tablet 3 times a day by oral route as needed. 09/05 completed Not Available Not Available Not Available famotidine 40 mg tablet 08/10 completed Not Available Not Available Not Available Zantac 300 mg tablet Take 1 tablet every day by oral route. 03/21 completed Not Available Not Available Not Available penicillin V potassium 500 mg tablet Take 1 tablet twice a day by oral route for 7 days. 05/21 completed Not Available Not Available Not Available acyclovir 800 mg tablet TK 1 T PO QD 12/23 completed Not Available Not Available Not Available Vitamin tablet Take 1 tablet every day by oral route as directed for 90 days. 10/13 completed Not Available Not Available Not Available famotidine 20 mg tablet Take 1 tablet twice a day by oral route. 10/13 completed Not Available Not Available Not Available omeprazole 10 mg capsule,del ayed release Take 1 capsule twice a day by oral route. 03/21 completed Not Available Not Available Not Available ferrous sulfate 325 mg (65 mg iron) tablet Take 1 tablet twice a day by oral route. 03/18 completed Not Available Not Available Not Available lidocaine 5 % topical patch APPLY 1 PATCH TO SKIN ONCE DAILY REMOVE AFTER 12 HOURS 01/16 completed Not Available Not Available Not Available progesteron e micronized 200 mg capsule TK 1 C PO BID 11/19 completed Not Available Not Available Not Available fluticasone propionate 50 mcg/actuati on nasal spray,suspe nsion Inhale 1 spray twice a day by intranasa l route. active Not Available Not Available No t Available loratadine 10 mg tablet Take 1 tablet every day by oral route. 03/21 completed Not Available Not Available Not Available naproxen 500 mg tablet TAKE 1 TABLET BY MOUTH TWICE DAILY WITH FOOD 01/16 completed Not Available Not Available Not Available metoclopram christian 10 mg tablet Take 1 tablet 4 times a day by oral route. 08/27 completed Not Available Not Available Not Available active Not Available Not Avai lable Not Available doxylamine 10 mg-pyridoxi ne (vit B6) 10 mg tablet,meri yed release TAKE 2 TABLETS BY MOUTH EVERY DAY 08/27 completed Not Available Not Available Not Available calcium 600 mg (as carbonate)- vitamin D3 10 mcg (400 unit) tablet active Not Available Not Available Not Available Calcium 600 with Vitamin D3 600 mg-10 mcg (400 unit) chewable tablet Take 1 tablet twice a day by oral route. 03/18 completed Not Available Not Available Not Available Calcium with Vitamin D3 600 mg (carbonate) -10 mcg (400 unit) capsule Take 1 capsule twice a day by oral route. 08/27 completed Not Available Not Available Not Available Lo Loestrin Fe 1 mg-10 mcg (24)/10 mcg (2) tablet Take 1 tablet every day by oral route. 03/21 completed Not Available Not Available Not Available Nexplanon 68 mg subdermal implant Inject 1 implant by subcutane ous route. 10/20 completed Not Available Not Available Not Available 28 mg iron-800 mcg tablet Take 1 tablet every day by oral route for 31 days. 2024 active Not Available Not Available Not Avai lable calcium 600 mg (as carbonate)- vitamin D3 20 mcg (800 unit) tablet Take 1 tablet twice a day by oral route for 30 days. 03/21 completed Not Available Not Available Not Available Junel Fe 24 1 mg-20 mcg (24)/75 mg (4) tablet TAKE 1 TABLET BY MOUTH EVERY DAY 03/18 completed Not Available Not Available Not Available Simpesse 0.15 mg-30 mcg (84)/10 mcg(7) tablets,3 month dose pack TAKE 1 TABLET BY MOUTH EVERY DAY DIRECTED 01/16 completed Not Available Not Available Not Available Se-Nisha 19 29 mg iron-1 mg tablet TK 1 T PO QD 10/13 completed Not Available Not Available Not Available Vitals Date Recorded Body height Body mass index (BMI) Body weight Heart rate Body temperature Oxygen saturation Oxygen saturation in Arterial blood by Pulse oximetry Systolic blood pressure Diastolic blood pressure Provider Name and Address Organization Details Last Updated DateTime 2 162.56 cm 40.4 kg/m2 148890. 01 g 82 /min 99.3 [degF] 99 % 99 % 108 mm[Hg] 72 mm[Hg] Tasiha Bach [place] - [facility] 2 08:41:40 Date Recorded Body height Body mass index (BMI) Body weight Body temperature Oxygen saturation Oxygen saturation in Arterial blood by Pulse oximetry Heart rate Systolic blood pressure Diastolic blood pressure Provider Name and Address Organization Details Last Updated DateTime 3 162.56 cm 38.3 kg/m2 280819. 54 g 98.4 [degF] 97 % 97 % 92 /min 124 mm[Hg] 78 mm[Hg] Alexa Figueroa MA [facility] 3 09:25:21 Date Recorded Body height Body mass index (BMI) Body weight Systolic blood pressure Diastolic blood pressure Provider Name and Address Organization Details Last Updated DateTime 10/31/2023 162.56 cm 38.1 kg/m2 566901.5 1 g 122 mm[Hg] 68 mm[Hg] Alicia Mortensen MA [facility] 3 10:01:37 Date Recorded Body height Body mass index (BMI) Body weight Heart rate Oxygen saturation Oxygen saturation in Arterial blood by Pulse oximetry Systolic blood pressure Diastolic blood pressure Provider Name and Address Organization Details Last Updated DateTime 5 162.56 cm 37.8 kg/m2 77447.3 2 g 77 /min 99 % 99 % 124 mm[Hg] 78 mm[Hg] Sondra Kraus MA [facility] 5 14:46:13 Date Recorded Body height Body mass index (BMI) Body weight Body temperature Oxygen saturation Oxygen saturation in Arterial blood by Pulse oximetry Heart rate Systolic blood pressure Diastolic blood pressure Provider Name and Address Organization Details Last Updated DateTime 5 162.56 cm 37.9 kg/m2 509573. 55 g 98.8 [degF] 98 % 98 % 96 /min 124 mm[Hg] 64 mm[Hg] Alexa Figueroa MA [facility] 5 15:05:56 Social History Question Answer Notes LastModified by Organization Details LastModified Time Tobacco Smoking Status Never Smoker Carmen Sparks MA null, [facility] 02/23/2015 16:36:00 Do You Have An Advance Directive? No Information not available 11/17/2015 Is Your Home Air Conditioned? Yes Information not available 12/23/2020 What Is Your Level Of Alcohol Consumption? Moderate Information not available 12/23/2020 If You Are , What Was Your Level Of Alcohol Consumption Prior To ? None Information not available 11/17/2015 How Many Years Have You Consumed Alcohol? 4 Information not available 12/23/2020 Is Anesthesia Consult Planned? No Will Attempt Natural Childbirth [email or web address] Information not available 12/04/2015 Are You Currently Sexually Active With Anyone Who Has Traveled (within The Last 12 Weeks) To A Zika-affected Area? No Information not available 12/23/2020 Do You Have A Basement? No Information not available 12/23/2020 Do You Wear A Helmet When Biking? No No Biking Information not available 12/23/2020 Plan No Information not available 11/17/2015 Are You Blind Or Do You Have Difficulty Seeing? No Information not available 12/23/2020 Is Blood Transfusion Acceptable In An Emergency? Yes Information not available 11/17/2015 What Is Your Level Of Caffeine Consumption? 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 None Information not available 08/15/2016 What Type Of Military Source Operations Officer Do You Use? None Information not available 12/23/2020 What Is Your Code Status? Other Information not available 12/23/2020 In The 14 Days Before Symptom Onset, Have You Had Close Contact With A Laboratory-conf irmed COVID-19 While That Case Was Ill? No Information not available 12/23/2020 In The 14 Days Before Symptom Onset, Have You Had Close Contact With A Person Who Is Under Investigation For COVID-19 While That Person Was Ill? No Information not available 12/23/2020 Have You Been To An Area Known To Be High Risk For COVID-19? No Information not available 12/23/2020 Are You Currently Employed? Yes Information not available 11/17/2015 Are You Deaf Or Do You Have Serious Difficulty Hearing? No Information not available 12/23/2020 What Type Of Diet Are You Following? REGULAR Information not available 12/23/2020 Do You Have A Directive To Physicians? No Information not available 12/23/2020 Which Illicit Or Recreational Drugs Have You Used? Marijuana Information not available 03/18/2020 Have You Processed Blood Or Body Fluids From An Ebola Virus Disease Patient Without Appropriate PPE? No Information not available 12/23/2020 Do You Reside In Or Have You Traveled To An Area Where Ebola Virus Transmission Is Active? No Information not available 12/23/2020 Do You Or Have You Ever Used E-cigarettes Or Vape? Never Used Electronic Cigarettes Information not available 03/18/2020 Education 12 Information not available 11/17/2015 What Is The Highest Grade Or Level Of School You Have Completed Or The Highest Degree You Have Received? [id number] Information not available 12/23/2020 Do You Have An Electrostatic Air Filter? No Information not available 12/23/2020 Who Is Your Employer? 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 0 Information not available 12/23/2020 Have You Been Exposed To Chemicals Or Toxins? No Information not available 12/23/2020 Have You Been Exposed To Heavy Metals? No Information not available 12/23/2020 Have There Been Any Changes To Your Family Or Social Situation? No Information not available 11/17/2015 What Is The Fluoride Status Of Your Home? Unknown Information not available 12/23/2020 Frequent Air Travel No Information not available 11/17/2015 Are There Any Guns Present In Your Home? No Information not available 12/23/2020 Which Of Your Hands Is Dominant? Right Information not available 12/23/2020 Have You Recently Or Are You Planning To Travel To An Area With Zika Virus? No Information not available 12/23/2020 Do You Have A Humidifier? No Information not available 12/23/2020 Illicit Drugs Pre- Marijuana [email or web address] Information not available 12/04/2015 Do You Use Insect Repellent Routinely? No Information not available 12/23/2020 Where Do You Live? SingleLevelHouse Information not available 12/23/2020 Live Alone Or With Others? With Others [email or web address] Information not available 12/04/2015 Do You Have A High School Diploma Or Higher Education? Yes Information not available 12/23/2020 Do You Sometimes Have To Miss Your Medical Appointments Due To Difficult Getting Transportation? No Information not available 12/23/2020 Do You Feel Unfairly Treated Due To Things Such As Race, Age, Gender, Disability Or Some Other Reason? Yes Information not available 12/23/2020 Do You Feel Physically And Emotionally Safe While Living At Home? Yes Information not available 12/23/2020 Do You Feel Physically And Emotionally Safe In Your Neighborhood Or Other Public Places? Yes Information not available 12/23/2020 How Long Have You Lived There? 2 Years Information not available 12/23/2020 Marital Status Informatio n not available 11/17/2015 Do You Have A Medical Power Of Fiberglass Fabricator? No Information not available 12/23/2020 Do You Have Moisture Problems In Your Home? No Information not available 12/23/2020 What Was The Date Of Your Most Recent Tobacco Screening? 01/16/2025 [email or web address] Information not available 01/16/2025 How Many Children Do You Have? 3 Information not available 11/19/2020 Are There Any Occupational Health Risks Where You Work? None Information not available 11/17/2015 Do You Have An Out Of Hospital DNR? No Information not available 12/23/2020 Have You Ever Been Counseled For Unhealthy Alcohol Use? No Information not available 12/23/2020 Performs Monthly Self-breast Exam? Yes Information not available 08/15/2016 Do You Have Any Pets? No Information not available 12/23/2020 Do You Use Protection During Sex? No Information not available 08/15/2016 What Is Your Relationship Status? Information not available 08/15/2016 Do You Use Your Seat Belt Or Car Seat Routinely? Yes Information not available 12/23/2020 Seat Belts Used Routinely Yes Information not available 11/17/2015 Are You Sexually Active? Yes Information not available 11/17/2015 Do You Have Smoke And Carbon Monoxide Detectors In Your Home? Yes Information not available 11/17/2015 Are You Passively Exposed To Smoke? No Information not available 11/17/2015 Do You Or Have You Ever Used Smokeless Tobacco? Never Used Smokeless Tobacco Information not available 03/18/2020 Are There Any Smokers In Your House? No Information not available 12/23/2020 How Much Tobacco Do You Smoke? No Information not available 02/29/2016 Smoking Pre- No Information not available 11/17/2015 Do You Participate In Social [facility]? Yes Information not available 12/23/2020 What Types Of Sporting Activities Do You Participate In? Running After Kids Information not available 12/23/2020 General Stress Level Medium Information not available 11/17/2015 Do You Feel Stressed (tense, Restless, Nervous, Or Anxious, Or Unable To Sleep At Night)? [id number] Information not available 12/23/2020 Do You Use Any Illicit Or Recreational Drugs? Yes Marijuana [email or web address] Information not available 10/13/2022 Do You Use Sunscreen Routinely? No Information not available 11/17/2015 Supplements Vitamin Gummies Information not available 03/18/2020 Has Tobacco Cessation Counseling Been Provided? Yes Information not available 10/31/2023 On What Date Was Tobacco Cessation Counseling Provided? 10/31/2023 Information not available 10/31/2023 How Many Years Have You Smoked Tobacco? 0 [email or web address] Information not available 02/29/2016 Have You Recently Traveled Abroad? No Information not available 12/23/2020 What Type Of Noise Exposure Are You Exposed To? Other Kids Information not available 12/23/2020 Have You Used IV Drugs? No Information not available 12/23/2020 Are You Currently In School? No Information not available 12/23/2020 Do You Have Any Dietary Restrictions? No Information not available 12/23/2020 Do You Or Have You Ever Used Any Other Forms Of Tobacco Or Nicotine? No Information not available 12/23/2020 How Many Days In The Past Year Have You Consumed 4 Or More Drinks? 4 Information not available 12/23/2020 Sex: Female Functional Status Question Answer Note LastModified by Organizat ion Details LastModified Time Do you have difficulty walking or climbing stairs? No Information not available 12/23/2020 Do you have transportation difficulties? No Information not available 12/23/2020 Are you able to walk? YESWOREST Information not available 12/23/2020 Do you have difficulty doing errands alone? No Information not available 12/23/2020 Are you able to care for yourself? Yes Information n ot available 12/23/2020 Do you have difficulty dressing or bathing? No Information not available 12/23/2020 What is your exercise level? Occasional Information not available 11/17/2015 Mental Status Question Answer Note LastModified by Organization D etails LastModified Time Do you have difficulty concentrating, remembering or making decisions? No Information no t available 12/23/2020 Family History Relationship Description Onset Age of this Age Resolved Age Notes LastModified by Organization Details LastModified Time Paternal Grandmother Diabetes mellitus [email or web address] Not available 08/15 15:36:21 Medical History Condition Response Coronary Artery Disease N Other N Atrial Fibrillation N High Blood Pressure N Breast Cancer N Lung Disease N Depression N COPD N Blood Clots N Breast Problem N Anesthesia Complications N Headaches/Migraines N Anxiety Disorder N Muscle, Joint, or Bone Problems N Arthritis N Infertility N Polyps N Acid Reflux (GERD) N Cancer N Stroke N Vitamin D Deficiency Y Endometriosis N High Cholesterol N Liver Disease N Fibromyalgia N Headaches N Kidney Disease N Allergies/Hayfever N Heart Problems N Ear or Hearing Problems N Thyroid Problems N Kidney or Bladder Problems N GI Problems N Acne N Eating Disorder N Skin Problems N Anemia N Constipation N Heart Attack ([place]) N Diabetes N Ovarian Cancer N Blood Transfusions N Seizures/Epilepsy N Urinary Tract Infection N Abuse/Domestic Violence N Asthma N Allergies N Substance Abuse Y GERD/Reflux N Hepatitis N Heart Disease N Bronchitis N Pre-Eclampsia N Hypertension N Chicken Pox Y Heart Failure N Osteoporosis N Gynecological History Statement/Question Response Abnormal Pap N Flow Moderate Date of LMP 11/15/2024 On BCP's at Conception? N STIs/STDs N HPV Vaccine Y Duration of Flow (days) 4 Age at Menarche 12 Current Control Method None Age at First Child 21 Frequency of Cycle (Q days) 30 Sexually Active? Y Menses Monthly N Date of Last Pap Smear 10/31/2023 Sexual Problems? N LMP Approximate Desired Control Method Implant Obstetrics History GPAL:G 4 P 3 0 0 3 Type Value Multiple Births 0 Full Term 3 Induced 0 Spontaneous 0 Premature 0 Living 3 Ectopics 0 Total 4 Immunizations Vaccine Type Date Status Note Provider Nam e and Address Organization Details Recorded Time Tdap 6 completed Not Available [facility] 11/30/2019 02:30:21 Hib, unspecified formulation 5 completed Alexa Figueroa [place] null, [place] - [facility] 10/20/2023 09:22:44 IPV 7 completed Alexa FigueroaMarsha Moscoso [place] [facility] 10/20/2023 09:22:44 IPV 5 completed Alexa Figuero[place] [facility] 10/20/2023 09:22:44 IPV 0 completed Alexa Figuero[place] [facility] 10/20/2023 09:22:44 IPV 9 completed Alexa Figuero[place] [facility] 10/20/2023 09:22:44 MMR 7 completed Alexa Figu[place] [facility] 10/20/2023 09:22:44 MMR 9 completed Alexa Figuero[place] [facility] 10/20/2023 09:22:44 varicella 9 completed Alexakayli Figueroa [place] [facility] 10/20/2023 09:22:45 HPV, quadrivalent 4 completed Alexa Figueroa, [place] [facility] 10/20/2023 09:22:45 HPV, quadrivalent 3 completed Alexa Figueroa, [place] [facility] 10/20/2023 09:22:45 Hep B, adolescent or pediatric 7 completed Alexa Figueroa, [place] [facility] 10/20/2023 09:22:45 Hep B, adolescent or pediatric 5 completed Alexa Figueroa, [place] [facility] 10/20/2023 09:22:45 Hep B, adolescent or pediatric 5 completed Alexa Figueroa, [place] [facility] 10/20/2023 09:22:45 DTaP 7 completed Alexa Figueroa, [place] [facility] 10/20/2023 09:22:45 DTaP 5 completed Alexa Figueroa, [place] [facility] 10/20/2023 09:22:45 DTaP 0 completed Alexa Figueroa, [place] [facility] 10/20/2023 09:22:45 DTaP 9 completed Alexa Figueroa, [place] [facility] 10/20/2023 09:22:45 Tdap 7 completed Not Available [facility] 11/30/2019 02:41:32 Influenza, split virus, trivalent, PF 5 completed Not Available [facility] 11/30/2019 02:46:38 Tdap 0 completed Sondra Kraus [place], [place] [facility] 08/13/2020 17:48:00 Influenza, split virus, quadrivalent, preservative 6 completed Not Available [facility] 11/30/2019 02:46:44 Past Encounters Encounter ID Performer Location Encounter Start Date Encounter Closed Date Diagnosis/Indication Diagnosis SNOMED-CT Code Diagnosis ICD10 Code Diagnosis Note [id number] GIANNA Booth ([employer]) [address] [place] [address] [id number] 0 02/23/2015 15:37:50 02/25/2015 14:20:09 Family planning surveillance [id number] Uses depot contraception [id number] Harvinder Russell ([employer]) [address] [place] [address] [id number] 0 11/17/2015 11:07:32 11/17/2015 14:51:40 Normal 96386336 Z34.91 Administra tion of influenza vaccine 06478964 Z23 [id number] [facility] [address] [place] [address] [id number] 0 12/04/2015 10:48:11 12/04/2015 11:31:38 Normal 67347629 Z34.91 [id number] Harvinder Arenas Drew ([employer]) [address] [place] [address] [id number] 0 12/17/2015 11:15:42 12/17/2015 13:53:12 Normal 27286299 Z34.91 Vitamin D deficiency 347 32752 E55.9 [id number] Harvinder Russell ([employer]) [address] [place] [address] 92540-594 0 01/21/2016 09:45:14 01/21/2016 13:25:54 Routine care 308088848 Z34.92 Gastroesop hageal reflux disease 219054116 K21.9 [id number] [facility] [address] [place] [address] [id number] 0 02/18/2016 10:49:21 02/18/2016 14:35:54 Routine care 301762541 Z34.92 Pain in throat 344189077 R07.0 Carrier of methicillin resistant Staphylococcus aureus 975742582 Z22.322 Sinusitis 30259069 J32.9 Upper resp iratory infection 43921626 J06.9 [id number] Harvinder Russell ([employer]) [address] [place] [address] [id number] 0 02/29/2016 09:41:22 02/29/2016 10:48:29 Routine care 336778525 Z34.92 Z13.1 Gastroesop hageal reflux disease 056769556 K21.[address] [facility] [id number] Z30.09 [id number] Harvinder Russell ([employer]) [address] [place] [address] [id number] 0 03/17/2016 15:32:04 03/18/2016 12:17:40 Routine care 764499057 Z34.92 Z13.1 [id number] Harvinder Russell ([employer]) [address] [place] [address] [id number] 0 04/04/2016 11:00:04 04/06/2016 13:57:53 Routine care 064139956 Z34.92 Z13.1 [id number] Harvinder Russell ([employer]) [address] [place] [address] [id number] 0 04/18/2016 10:34:23 04/18/2016 15:19:02 Routine care 322038547 Z34.92 Z13.1 Family concetta nning surveillance 866992855 Z30.09 [id number] Harvinder Russell ([employer]) [address] [place] [address] [id number] 0 2016 10:34:29 2016 18:11:22 Routine care 857926193 Z34.92 Z13.1 Carrier of methicillin resistant Staphylococcus aureus 529528696 Z22.322 [id number] Harvinder Russell ([employer]) [address] [place] [address] [id number] 0 05/12/2016 11:01:09 05/13/2016 00:17:09 Routine care 064239480 Z34.83 Third trim unique 18857463 Z3A.36 [id number] Harvinder Russell ([employer]) [address] [place] [address] [id number] 0 05/18/2016 10:34:13 05/30/2016 10:27:19 Routine care 834538169 Z34.[address] reptococcus carrier [id number] 103 Z22.330 [id number] Harvinder Russell ([employer]) [address] [place] [address] [id number] 0 05/25/2016 10:43:34 05/25/2016 12:26:50 Routine care 154853102 Z34.83 Third trim unique 85123485 Z3A.36 [id number] Harvinder Russell ([employer]) [address] [place] [address] [id number] 0 06/01/2016 10:44:18 06/03/2016 09:48:56 Routine care 128400489 Z34.83 Third trim unique 46151233 Z3A.36 [id number] Harvinder Russell ([employer]) [address] [place] [address] [id number] 0 08/15/2016 14:30:47 08/18/2016 11:17:49 state 97487098 Z39.2 care 05613479 8 Z39.2 Family concetta nning surveillance 601946026 Z30.09 [id number] Harvinder Russell ([employer]) [address] [place] [address] [id number] 0 01/19/2017 10:50:51 01/20/2017 14:57:31 Routine care 529338064 Z34.92 Z13.1 [id number] [facility] ([employer]) [address] [place] [address] [id number] 0 02/03/2017 11:18:24 02/03/2017 11:54:13 Normal 96941964 Z34.91 [id number] Harvinder Russell ([employer]) [address] [place] [address] 91008-525 0 02/16/2017 10:40:08 02/16/2017 17:02:58 Routine care 460196525 Z34.92 Z13.1 Abnormal progesterone [address] reptococcus carrier 5719614126 103 Z22.559 [id number] Harvinder Russell ([employer]) [address] [place] [address] [id number] 0 03/21/2017 11:23:51 03/21/2017 15:26:09 Routine care 542020583 Z34.92 Z13.1 [id number] Harvinder Russell ([employer]) [address] [place] [address] [id number] 0 04/19/2017 09:58:42 04/19/2017 15:18:31 Routine care 598419797 Z34.92 Z13.1 Gastroesop hageal reflux disease 552219331 K21.[address] reptococcus carrier [id number] 103 Z22.330 Abnormal progesterone 13 7358352 R94.7 [id number] Harvinder Russell ([employer]) [address] [place] [address] [id number] 0 05/11/2017 09:47:53 05/11/2017 12:40:10 Routine care 828985461 Z34.92 Z13.1 Diabetes m ellitus screening 305949991 Z13.1 Z13.9 [id number] [facility] ([employer]) [address] [place] [address] [id number] 0 06/08/2017 09:52:25 06/08/2017 13:36:53 Routine care 017891620 Z34.92 Z13.1 Umbilical hernia 1197026 07 K42.9 Hernia noted on physical exam. Patient will need a abdominal binder post delivery. [id number] Harvinder Russell ([employer]) [address] [place] [address] [id number] 0 07/03/2017 16:15:41 07/06/2017 16:33:25 Routine care 101886396 Z34.[address] reptococcus carrier 3051534396 103 Z22.802 [id number] Harvinder Russell ([employer]) [address] [place] [address] [id number] 0 07/19/2017 15:38:08 07/19/2017 17:25:55 Routine care 131247158 Z34.92 Z13.1 Umbilical hernia 2484759 07 K42.9 Hernia noted on physical exam. Patient will need a abdominal binder post delivery. general surgery post Group B St reptococcus carrier [id number] 103 Z22.330 Gastroesop hageal reflux disease 287031190 K21.9 Exposure t o sexually transmissible disorder 510578128 Z20.2 Large for gestation age fetus 972898749 O36.63X1 Varicella 36176899 B01.9 NON IMMUNE VARIVACC [id number] Harvinder Russell ([employer]) [address] [place] [address] [id number] 0 07/26/2017 11:39:55 07/26/2017 12:57:30 Routine care 462029692 Z34.92 Z13.1 [id number] Harvinder Russell ([employer]) [address] [place] [address] [id number] 0 08/02/2017 11:46:46 08/02/2017 13:32:42 Routine care 267414215 Z34.[address] reptococcus carrier [id number] 103 Z22.330 Obesity 438209454 E66.9 Varicella vaccination 68 780101 Z23 [id number] Harvinder Russell ([employer]) [address] [place] [address] [id number] 0 08/10/2017 11:16:28 08/10/2017 14:38:57 Routine care 511449864 Z13.[address] reptococcus carrier [id number] 103 Z22.330 Varicella 55102588 B01.9 NON IMMUNE VARIVACC [id number] Harvinder Russell ([employer]) [address] [place] [address] [id number] 0 09/05/2018 14:36:08 09/06/2018 14:16:33 Amenorrhea 53007258 N91.2 HCG weekly. [id number] Harvinder Russell ([employer]) [address] [place] [address] [id number] 0 03/18/2020 14:19:30 03/19/2020 06:12:55 Anemia 693398573 D64.9 Abnormal progesterone [address] reptococcus carrier 1503522855 103 Z22.330 Obesity 339063681 E66.9 Routine an tenatal care 166321536 Z13.1 Z34.93 Venereal d isease screening 395517912 Z11.3 screening 2437 61057 Z36.85 [id number] YANN HILL ([employer]) [address] [place] [address] [id number] 0 04/09/2020 09:33:09 04/10/2020 07:53:04 Herpes simplex type 2 infection 514032749 B00.9 Pt concerned with results. Advised that could be early infection. Testing shows equivocal IgG but negative supplement al test. Will recheck today. Routine an tenatal care 734570625 Z34.01 ACOG at 11 weeks. Pt denies n/v, bleeding, cramping. US 03/24 with EDC 10/29/2020 . Test results reviewed. OB educationa l packet reviewed and provided to patient. RTC in 2 weeks. Abnormal progesterone 13 0582893 R94.7 Pt not taking progestero ne and needs prescripti on resent to the pharmacy. Take as prescribed . Can take vaginally to reduce side effects. [id number] YANN HILL ([employer]) [address] [place] [address] [id number] 0 04/23/2020 15:45:38 04/27/2020 06:54:18 Routine care 239711382 Z34.01 Routine care at 13 weeks. FHT present at 159. Pt denies n/v, bleeding, cramping. NIPT drawn today. RTC in 4 weeks. screening 2437 89220 Z36.0 Abnormal progesterone 13 1780261 R94.7 Continue taking progestero ne as prescribed . Can take vaginally to reduce side effects. Will recheck levels at next visit. [id number] YANN HILL ([employer]) [address] [place] [address] [id number] 0 05/21/2020 09:53:11 05/22/2020 07:37:26 Routine care 544608375 Z34.01 Routine care at 17w0d. Pt denies n/v, bleeding, cramping. Reassuring FHT of 150. 2nd trimester US ordered today; pt advised to schedule at 20 weeks. AFP serum labs drawn today. Recheck progestero ne. RTC in 4 weeks. Abnormal progesterone 13 4286215 R94.7 Continue taking progestero ne as prescribed . Recheck today. 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 Pt reports she took Acyclovir and broke out in hives. No h/o outbreak. Advised to dc for now and will address at a later date. Consider trialing famciclovi r. [id number] YANN HILL ([employer]) [address] [place] [address] [id number] 0 06/18/2020 14:35:50 06/22/2020 06:50:41 Routine care 456751407 Z34.01 Routine care at 21w0d. Pt has no concerns today, denies contractio ns, LOF. Reassuring fundal height and FHT present at 150. US 06/04 with normal anatomy scan, EFW 24th percentile . RTC in 4 weeks. Abnormal progesterone 13 2198828 R94.7 Continue taking progestero ne as prescribed . [id number] YANN HILL ([employer]) [address] [place] [address] [id number] 0 07/30/2020 15:18:16 07/31/2020 14:05:04 Routine care 984607746 Z34.90 Routine care at 27w0d. Pt reporting a little mucusy discharge after intercours e, but denies contractio ns, LOF. Likely part of mucus plug, provided reassuranc e. Appropriat e fundal height and FHT present at 156. Discussed kick counts. Pt is not fasting and plans to return next week for lab work/GCT. RTC in 2 weeks. screening 4837 69793 Z36.9 Pt to return next week to complete. Venereal d isease screening 284658473 Z11.3 Abnormal progesterone 13 4405347 R94.7 Continue taking progestero ne as prescribed . [id number] YANN HILL ([employer]) [address] [place] [address] [id number] 0 08/13/2020 15:26:59 08/17/2020 15:03:18 Routine care 735604819 Z34.90 25yo AAF, , presents for FRANKLYN at 29 weeks 0 days. c/b abnormal progestero ne, HSV, GBS. She has no specific concerns today. Denies contractio ns, LOF. + movements. Reassuring fundal height and FHT present at 142. GCT negative. Tdap administer ed today, pt would like to wait until next visit for flu shot. Order for 3rd trimester US given. RTC in 2 weeks. Sterilizat ion requested 538934134 Z30.2 Pt desires PP BTL. Papers signed. [id number] YANN HILL ([employer]) [address] [place] [address] 0 08/27/2020 15:31:25 08/31/2020 15:13:36 Routine care 031304683 Z34.90 25yo AAF, , presents for FRANKLYN at 31 weeks 0 days. c/b abnormal progestero ne, HSV, GBS. She has no specific concerns today. Denies contractio ns, LOF. + movements. Reassuring fundal height and FHT present at 151. 3rd trimester US completed today, awaiting results. Pt declined flu vaccine. RTC in 2 weeks. Influenza vaccination declined 711393503 Z28.21 Family concetta nning surveillance 674500297 Z30.09 Pt having second thoughts in PP BTL. Interested in Nexplanon instead. [id number] YANN HILL ([employer]) [address] [place] [address] 0 09/11/2020 15:22:01 09/14/2020 20:05:47 Routine care 337239608 Z34.90 Pt is a 25yo AAF, , presents for FRANKLYN at 33 weeks 1 day gestation. c/b abnormal progestero ne, HSV, GBS. +FM. FHT 140. FH reassuring . Pt denies vaginal bleeding, discharge, contractio ns, LOF. US 08/27/20 with EFW 37%, JAX wnl. Pt wants 3D US, will order. Pt declined flu shot. Influenza vaccination declined 637245303 Z28.21 [id number] YANN HILL ([employer]) [address] [place] [address] 0 09/24/2020 14:53:25 09/30/2020 09:50:27 Routine care 478625001 Z34.90 Pt is a 25yo AAF, , presents for FRANKLYN at 35 weeks gestation. c/b abnormal progestero ne, HSV, GBS. +FM. FHT 147. FH reassuring . Complains of nausea and reflux. Pt denies vaginal bleeding, discharge, contractio ns, LOF. Pt has US earlier today, awaiting report. RTC in 1 week. Gastroesop hageal reflux disease without esophagitis [id number] K21.9 Advised to stay away from spicy, acidic, and greasy foods. Do not eat within 2 hours of going to bed. Stay sitting up after meals. Start famotidine as prescribed . [id number] [facility] ([facility]) [address] [place] [address] 10/02/2020 09:48:42 10/02/2020 10:43:39 Routine care [id number] Z34.90 Pt is a 25yo AAF, , presents for FRANKLYN at 36w1d. c/b abnormal progestero ne, HSV, GBS. Having irregular contractio ns. Denies cramping, abnormal bleeding, LOF. +FM. FHT 131. FH reassuring . Cervix exam: 0cm, 0%, -4. US 09/24 with EFW 19%, JAX wnl, vertex presentati on. WTC/WLB reviewed. RTC in [address] Arenas. screening 2437 99079 Z36.85 Venereal d isease screening 967418452 Z11.3 Genital he rpes simplex 55517257 A60.9 On suppressiv e antiviral. [id number] [facility] ([facility]) [address] [place] [address] 0 10/07/2020 11:10:06 10/07/2020 11:44:25 Routine care 410114254 Z13.1 Z34.93 Genital he rpes simplex 93057195 A60.[address] reptococcus carrier [id number] 103 Z22.330 Obesity 045794840 E66.9 Anemia 039642536 D64.9 [id number] [facility] ([facility]) [address] [place] [address] 10/15/2020 11:43:51 10/20/2020 12:03:03 Routine care 331677053 Z13.1 Z34.93 Abnormal progesterone [address] reptococcus carrier [id number] 103 Z22.330 Genital he rpes simplex 13835454 A60.9 [id number] [facility]a [facility] ([facility]) [address] [place] [address] 11/19/2020 10:02:26 11/25/2020 12:47:45 care 566256444 Z39.2 Family concetta nning surveillance 323768176 Z30.09 Insertion of subcutaneous contraceptive 698995382 Z30.9 [id number] [facility] ([facility]) [address] [place] [phone] 12/23/2020 11:59:06 12/25/2020 09:40:06 Pruritic rash 18945461 L28.2 2 episodes of pruritic rash which resolved with applicatio n of Miracle cream. PE unremarkab le. Less likely related to Nexplanon. Suspect product related. Advised her use sensitive skin laundry detergent, avoid scented body washes and lotions. RTC if rash returns. [id number] YANN DODSON (Adult Med) [address] [place] [phone] 0 10/13/2022 08:31:11 10/17/2022 11:59:45 Contraception care 946937036 Z30.40 Patient had Nexplanon removed today and would like to start oral contracept lg pill. She agrees to start Seasonique as she has been on this in the past and would like to get her periods every 3 months. Denies history of cigarette use and history of migraines. - start Seasonique 3 month dose pack and follow up within 1 year Removal of subcutaneous contraceptive 583239011 Z30.46 Patient has had Nexplanon for the past 2 years and does not like the side effects of frequent periods (every 2 weeks) and pain and pruritus at insertion site. Pt denies any numbness or tingling to upper extremitie s. Implant was removed in office with no complicati ons. Patient is requesting to start the pill. - discussed with patient that fertility will return and discussed new contracept lg options Screening for malignant neoplasm of cervix 988815759 Z12.4 Patient's last pap was 2019, normal results. Patient was informed to schedule next pap smear within 1 year. [id number] [facility] (Adult Med) [address] [place] [phone] 10/20/2023 09:11:21 10/23/2023 10:50:21 Contraception care 702605631 Z30.40 She is doing well control pills and would like to continue them. Has her menses every 3 months with some intermitte nt spotting.- test negative- c/w Seasonique 3 month dose pack and follow up within 1 year- continue with safe sex practices and wear condoms to protect against STDs Screening for malignant neoplasm of cervix 058890280 Z12.4 Patients's last pap was 2019, normal results.- due for repeat, she declined today but plans to schedule a f/u apt Obesity 435110099 E66.9 Advised decreased portion sizes, good food choices, limited eating out or fast food and eliminate soda and juice from diet. Advised physical activity daily and offered encouragem ent to continue with positive changes made so far. [id number] [facility] ([facility]) [address] [place] [phone] 0 10/31/2023 09:43:41 11/09/2023 15:35:57 Gynecologic examination 02130964 Z01.419 Cervical cancer screening: Last Pap 03/18/2020 NILM, updated todayBreas t cancer screening: Discussed SBEContrac eption: OCPsDiet/e xercise: Counseled regarding importance of physical activity, healthy diet and appropriat e calcium intake.RTC in 1yr Venereal d isease screening 994596688 Z11.3 Routine screening, safe sex practices discussed. [id number] MD Drew GLAS[facility] ([facility]) [address] [place] [phone] 0 12/09/2024 14:34:41 12/18/2024 16:19:10 Contraception care management 594103026 Z30.9 Discussed routine contracept ion care. Informed by staff that test was positive after patient was informed test was negative. Test was confirmed with repeat testing. Patient informed over the phone and will return for blood testing.Yann marquez advised not to take OCP. test positive 199130884 Z32.01 [id number] Devin Leslie MD [facility] (Adult Med) [address] [place] [phone] 0 01/16/2025 14:43:47 01/21/2025 11:25:34 test positive 150446208 Z32.01 LMP 11/15/24, EDD1 5, 8.6 weeks gestationU /S orderedSta rt vitaminsLa bor and precaution s discussed- handouts given to patientRTC 2 weeks for New OB visit/labs /pap Obesity 570385794 E66.81 2 BM 37.9 Depression screening 171 286853 Z13.31 PHQ9- {{Negative * Positive Mild Mode rate Sever e}} (2 out of 27) Mental hea lth screening 797878137 Z13.39 GAD7- {{Negative * Positive Mild Mode rate Sever e}} (1 out of 21) Health Concerns Section Related Observation LastModified by Organization Detai ls LastModified Time None Recorded Concern Status LastModified by Organization Details LastModified Time None Recorded Advance Directives Directive N: Payers Encounter Date Sequence Insurance Name Policy Number Policy Prasad Covered Member ID Prasad Member ID Guarantor Name 10/13/2022 1 [facility] (MEDICAID HMO) [id number] Ashlee Lemus Holden [id number] Ashlee Perla Holden 10/20/2023 1 [facility] (MEDICAID HMO) [id number] Ashlee Perla Holden [id number] Ashlee Hatch 10/31/2023 1 [facility] (MEDICAID HMO) [id number] 0003 Ashlee Perla Holden [id number] Ashlee Hatch 12/09/2024 1 [facility] (MEDICAID HMO) [id number] 0003 Ashlee Hatch [id number] Ashlee Hatch 01/16/2025 1 [facility] (MEDICAID HMO) [id number] 0003 Ashlee Hatch [id number] Ashlee Lemus Hatch Notes Date Note Type Note Provider Name and Address Organization Details Recorded Time 10/13/2022 text/html Patient is a 27-year-old F who presents with request for nexplanon removal. She states she does not like how the control makes her periods come every 2 weeks and lasts for 5 days. She also complains that at the site of insertion she experiences pruritus and pain when laying on her arm. Patient has had the nexplanon for the past 2 years. She denies any numbness or tingling in ther arms. She denies history of migraines or cigarette smoking. YANN DODSON Attn: [address] [place], [address], [facility] 10/13/2022 16:00:54 10/20/2023 text/html Patient is a 28-year-old F who presents today for refill on her control pills. She is doing well on these and would like to continue them. Has her menses every 3 months with some intermittent spotting. Last pap smear in 03/2020, not interested in completing today since just got off work. Denies fever, chills, nausea, vomiting, pelvic pain, vaginal discharge, vaginal lesions, dysuria, urinary frequency, and hematuria. YANN DODSON Attn: [address] [place], [address], [facility] 10/20/2023 16:59:37 10/31/2023 text/html Annual GYNReport ed bypatient.Urinary symptoms:No hematuria; No incontinence Vulva:No genital lesion Vagina:Normal vaginal discharge Breast:No breast pain; No breast lump; No nipple discharge Current Contraception:Satisf ied with current contraception; Monogamous relationship; Oral contraceptives Sexual complaints:No sexual complaints; No pain during intercourse; Normal libido Menopausal Symptoms:No menopausal symptoms; Normal vaginal lubrication Psychological symptoms:No depression; No anxiety; No PMDD Preventive measures:Encourage self breast examination; Encourage regular exercise; Encourage no tobacco use; Encourage regular mammograms starting age 40; Followed with Q3 year pap smear and high risk HPV typing Ashlee is a 28 y/o F here for an annual exam. She reports her last pap was three years ago and was normal. She reports she gets a menses every three months on OCPs and denies any heavy bleeding or cramping. YANN HILL Attn: [address] [place], [address], [facility] 11/08/2023 16:37:33 12/09/2024 text/html 29F here for contraception visit.Would like to continue with the OCPs. Has been taking Simpesse pills for 3 to 4 years. No concerns with them. Has not been taking them since Oct 21, ran out of refills. Needed to have been seen by provider before refill. Sexually active with 1 partner, . Reports exclusive with partner.Has 3 children. Denies smoking. Denies history of blood clots.Wishes to have children in the future. LOIDA LANGE MD Attn: [address] [place], [address], [place] [facility] 12/13/2024 11:57:05 01/16/2025 text/html See OB worksheet Devin diez MD Attn: [address] [place], [address], [place] [facility] 01/17/2025 14:59:41 OBGyn Episode Ob Episode Information Episode Created Date Number of Fetuses Patient Bloodtype Patient rh Status Prepregnancy Weight lbs Domestic Partner Domestic Partner Phone Father Name Air And Hydronic Balancing Technician Status 01/17/20 25 1 OPEN Fetus Data First Name Last Name Admitted to NICU Weight (g) Sex Living Outcome Pediatric Complications Fetus ID Race Codes Race Delivery Type [id number] Lefty Calculation Initial Lefty Date Initial Exam Date Initial Exam Provider Initial Ultrasound Date Last Menstrual Period Date Ultra Sound Weeks Gestation 08/22/2025 01/16/2025 11/15/2024 0 Eighteen To Twenty Week Lefty Update Ultra Sound Date Fundal Height At Umbil Quickening Date Ultra Sound Latest Weeks Gestation Final Lefty Confirmed By Final Lefty Confirmed Date Final Lefty Date Ultra Sound Latest Days Gestation 0 0 Pre- Flowsheet Flowsheet Date 01/16/2025 Lord Score Blood Edema Fundus Height Fundus Units Glucose Ketones Leukocytes Nitrite Labor Signs Protein Cervic Dilation Cervic Effacement Cervic Station neg none none negative none neg Type Weight in lbs Pre/Post Dialysis Refused With clothes 220.510588407374 BP Diastolic BP Location Tested BP Systolic BP Type 64 L arm 124 sitting Fetus Heart Rate Present Fetus Movement A No Comments 29 y/o AA F here for po sitive test at 8.6 weeks gestation. Pt c/o some nausea but no vomiting. Pt denies abdominal pain, cramping, vaginal bleeding.PlanLMP 11/15/24, EDD1, 8.6 weeks gestationU/S orderedStart vitaminsLabor and precautions discussed- handouts given to patientRTC 2 weeks for New OB visit/labs/pap Menstrual History Last Menstrual Date Menses Monthly On Bcp Conception Prior Menses Frequency Hcg Plus Date Menarche Onset Age 0111/15/2024 true false 11/15/2024 30 01/17/20 2 5 12 Genetic Screening And Infection History Question Response Note Patient's Age Will Be 35 Years Or Older At Estim ated Date of Delivery false Thalassemia (Northern Irish, Nepalese, Mediterranean, Or Background): MCV < 80 false Neural Tube Defect (Meningomyelocele, Spina Bifi da, Or Anencephaly) false Congenital Heart Defect false Down Syndrome false Riccardo-Sachs (eg, Temple, Cajun, Montserratian-Patrick) f alse Shira Disease false Sickle Cell Disease Or Trait () false Hemophilia Or Other Blood Disorders false Muscular Dystrophy false Niyah's Chorea false Mental Retardation/Autism false If Yes, Was Person Tested For Fragile X? false Other Inherited Genetic Or Chromosomal Disorder false Maternal Metabolic Disorder (eg, Type 1 Diabetes , PKU) false Patient Or Baby's Father Had A Child With Defects Not Listed Above false Recurrent Loss, Or A Stillbirth false Medications (including Suppl ements, Vitamins, Herbs, OTC Drugs), Illicit/Recreational Drugs, Alcohol false If Yes, Agent(s) And Strength/Dosage false Any Other Genetic History false Live With Someone With TB Or Exposed To TB false Patient Or Partner Has History Of Genital Herpes false Rash Or Viral Illness Since Last Menstrual Perio d false History Of STD, Gonorrhea, Chlamydia, HPV, Syphi lis false Other Infection History false History of HIV false History of Hepatitis false Prior GBS-infected child false Plans and Education First Trimester Discussed Date Discussion Item Discussion Note Discuss ed By 01/16/2025 Anticipated course of care 01/16/2025 Alcohol [email or web address] 01/16/2025 Intimate partner violence op [email or web address] 01/16/2025 Environmental/work hazards o [email or web address] 01/16/2025 Screening for aneuploidy ope rez46 01/16/2025 Nutrition counseling ; special diet; dietary precautions (mercury, listeriosis) 01/16/2025 Childbirth classes/hospital facilities [email or web address] 01/16/2025 HIV and other routine tests [email or web address] 01/16/2025 Risk factors identif ied by history [email or web address] 01/16/2025 Weight gain counseling opere z46 01/16/2025 Exercise [email or web address] 01/16/2025 Teratogens [email or web address] 01/16/2025 Use of any medicatio ns (including supplements, vitamins, herbs, or OTC drugs) [email or web address] 01/16/2025 [email or web address] 01/16/2025 Sexual activity 01/16/2025 Tobacco/smoking cess ation counseling (ask, advise, assess, assist, and arrange) 01/16/2025 Illicit/recreational drugs o [email or web address] 01/16/2025 Dental care [email or web address] 01/16/2025 Travel [id number] 01/16/2025 Seat belt use [email or web address] 01/16/2025 Indications for ultrasonography 01/16/2025 Avoidance of saunas or hot tubs [email or web address] 01/16/2025 Toxoplasmosis precautions (cats/raw meat) [email or web address] Second Trimester Discussed Date Discussion Item Discussion Note Discuss ed By Third Trimester Discussed Date Discussion Item Discussion Note Discuss ed By Delivery Information Delivery Date Delivery Type Labor Anesthesia Weeks Gestation Incision Type Labor Labor Length Hrs Delivered By Post Complications Tubal Sterilization Discharge Date Comments Discharge Information Feeding Method Contraceptive Method Maternal HG B and HCT Levels Ob Episode Information Episode Created Date Number of Fetuses Patient Bloodtype Patient rh Status Prepregnancy Weight lbs Domestic Partner Domestic Partner Phone Father Name Air And Hydronic Balancing Technician Status 03/18/20 20 1 B Positive 192 CLOSED Fetus Data First Name Last Name Admitted to NICU Weight (g) Sex Living Outcome Pediatric Complications Fetus ID Race Codes Race Delivery Type Doug Dsouza peace Lázaro false 3061.74 6 M true Full Term PEDS Dr. Jenise Ryder MD, @ [place] [address] 2054-5 Black or Afric an Ameri can Standard Vaginal Delivery Problems Problem Notes yes to epidural, yes to circ umcision, , tong setter Dr. Ryder, [facility] [place] , brandon Camacho Problem Name Start Date End Date Resolution Snomed Code Not e Anemia 09/07/2018 [id number] Umbilical hernia 07/19/2017 827865645 Abnormal progesterone 01/11/2017 4635381 00 low at initial ob labs Obesity 08/02/2017 149239556 Group B Streptococcus carrier 01/25/2017 [id number] Gastroesophageal reflux disease 329693599 Genital herpes simplex 03/31/2020 691406 06 Requires varicella vaccination 03/31/2020 668698322 Lefty Calculation Initial Lefty Date Initial Exam Date Initial Exam Provider Initial Ultrasound Date Last Menstrual Period Date Ultra Sound Weeks Gestation 10/29/2020 03/18/2020 [facility] 03/24/2020 01/23/2020 8 Eighteen To Twenty Week Lefty Update Ultra Sound Date Fundal Height At Umbil Quickening Date Ultra Sound Latest Weeks Gestation Final Lefty Confirmed By Final Lefty Confirmed Date Final Lefty Date Ultra Sound Latest Days Gestation 03/24/20 20 8 [facility] 10/07/2020 020 5 Pre-nisha Flowsheet Flowsheet Date 03/18/2020 Lord Score Blood Edema Fundus Height Fundus Units Glucose Ketones Leukocytes Nitrite Labor Signs Protein Cervic Dilation Cervic Effacement Cervic Station neg none 7 wks none negative none neg Type Weight in lbs Pre/Post Dialysis Refused With clothes 192.428398425950 BP Diastolic BP Location Tested BP Systolic BP Type 64 102 sitting Fetus Heart Rate Present Fetus Movement Comments nob/ rx prog Flowsheet Date 04/09/2020 Lord Score Blood Edema Fundus Height Fundus Units Glucose Ketones Leukocytes Nitrite Labor Signs Protein Cervic Dilation Cervic Effacement Cervic Station 11 wks Type Weight in lbs Pre/Post Dialysis Refused Weight 187.100644089362 BP Diastolic BP Location Tested BP Systolic BP Type 64 110 sitting Fetus Heart Rate Present Fetus Movement Comments ACOG at 11 weeks. Pt denies n/v, bleeding, cramping. US 03/24 with EDC 10/29/2020. Test results reviewed. OB educational packet reviewed and provided to patient. Flowsheet Date 04/23/2020 Lord Score Blood Edema Fundus Height Fundus Units Glucose Ketones Leukocytes Nitrite Labor Signs Protein Cervic Dilation Cervic Effacement Cervic Station neg none 13 wks none negative none neg Type Weight in lbs Pre/Post Dialysis Refused Weight 186.040956112144 BP Diastolic BP Location Tested BP Systolic BP Type 60 104 sitting Fetus Heart Rate Present A 159 Present Fetus Movement Comments Routine care at 13 weeks. Pt denies n/v, bleeding, cramping. [email or web address] drawn today. RTC in 4 weeks. Flowsheet Date 05/21/2020 Lord Score Blood Edema Fundus Height Fundus Units Glucose Ketones Leukocytes Nitrite Labor Signs Protein Cervic Dilation Cervic Effacement Cervic Station neg none 17 wks none negative neg Type Weight in lbs Pre/Post Dialysis Refused Weight 192.107660105327 BP Diastolic BP Location Tested BP Systolic BP Type 56 104 sitting Fetus Heart Rate Present A 150 Present Fetus Movement A Yes Comments Routine care at 17w 0d. Pt denies n/v, bleeding, cramping. 2nd trimester U/S ordered today; pt advised to schedule at 20 weeks. AFP serum labs drawn today. Recheck progesterone. RTC in 4 weeks. Flowsheet Date 06/18/2020 Lord Score Blood Edema Fundus Height Fundus Units Glucose Ketones Leukocytes Nitrite Labor Signs Protein Cervic Dilation Cervic Effacement Cervic Station neg none 21 wks 1+ small none neg Type Weight in lbs Pre/Post Dialysis Refused Weight 194.841284662300 BP Diastolic BP Location Tested BP Systolic BP Type 60 100 sitting Fetus Heart Rate Present A 151 Present Fetus Movement A Yes Comments Routine care at 21w eeks. Pt has no concerns today, denies contractions, LOF. US 06/04 with normal anatomy scan, EFW 24th percentile. RTC in 4 weeks. Flowsheet Date 07/30/2020 Lord Score Blood Edema Fundus Height Fundus Units Glucose Ketones Leukocytes Nitrite Labor Signs Protein Cervic Dilation Cervic Effacement Cervic Station neg none 27 wks none trace none neg Type Weight in lbs Pre/Post Dialysis Refused Weight 198.155926115213 BP Diastolic BP Location Tested BP Systolic BP Type 58 108 sitting Fetus Heart Rate Present A 156 Present Fetus Movement A Yes Comments Routine care at 27w 0d. Pt denies contractions, LOF. Discussed kick counts. Pt is not fasting and plans to return next week for lab work/GCT. Flowsheet Date 08/13/2020 Lord Score Blood Edema Fundus Height Fundus Units Glucose Ketones Leukocytes Nitrite Labor Signs Protein Cervic Dilation Cervic Effacement Cervic Station neg none 29 wks 1+ negative none neg Type Weight in lbs Pre/Post Dialysis Refused Weight 203.80329435789 BP Diastolic BP Location Tested BP Systolic BP Type 64 110 sitting Fetus Heart Rate Present A 142 Present Fetus Movement A Yes Comments FRANKLYN at 29 weeks 0 days. Manuel es contractions, LOF. + movements. GCT negative. Tdap administered today, pt would like to wait until next visit for flu shot. Order for 3rd trimester US given. Flowsheet Date 08/27/2020 Lord Score Blood Edema Fundus Height Fundus Units Glucose Ketones Leukocytes Nitrite Labor Signs Protein Cervic Dilation Cervic Effacement Cervic Station neg none 31 wks none negative none neg Type Weight in lbs Pre/Post Dialysis Refused With clothes 209.148687214668 BP Diastolic BP Location Tested BP Systolic BP Type 60 108 sitting Fetus Heart Rate Present A 151 Present Fetus Movement A Yes Comments FRANKLYN at 31 weeks 0 days. Manuel es contractions, LOF. + movements. 3rd trimester US completed today, awaiting results. Pt declined flu vaccine. Flowsheet Date 09/11/2020 Lord Score Blood Edema Fundus Height Fundus Units Glucose Ketones Leukocytes Nitrite Labor Signs Protein Cervic Dilation Cervic Effacement Cervic Station neg none 33 wks none negative none neg Type Weight in lbs Pre/Post Dialysis Refused Weight 209.612649444671 BP Diastolic BP Location Tested BP Systolic BP Type 54 92 sitting Fetus Heart Rate Present A 140 Present Fetus Movement A Yes Comments FRANKLYN at 33 weeks 1 day gestat ion. US 08/27/20 with EFW 37%, JAX wnl. Flowsheet Date 09/24/2020 Lord Score Blood Edema Fundus Height Fundus Units Glucose Ketones Leukocytes Nitrite Labor Signs Protein Cervic Dilation Cervic Effacement Cervic Station neg none 35 wks 1+ negative Backpain trace Type Weight in lbs Pre/Post Dialysis Refused Weight 207.955660235164 BP Diastolic BP Location Tested BP Systolic BP Type 54 104 sitting Fetus Heart Rate Present A 147 Present Fetus Movement A Yes Comments FRANKLYN at 35 weeks gestation. C omplains of nausea and reflux. Rx famotidine. Pt has US earlier today, awaiting report. Flowsheet Date 10/02/2020 Lord Score Blood Edema Fundus Height Fundus Units Glucose Ketones Leukocytes Nitrite Labor Signs Protein Cervic Dilation Cervic Effacement Cervic Station neg none 36 wks none negative Perry Elena neg 0cm 0% -4 Type Weight in lbs Pre/Post Dialysis Refused Weight 208.804631894053 BP Diastolic BP Location Tested BP Systolic BP Type 72 102 sitting Fetus Heart Rate Present A 131 Present Fetus Movement A Yes Comments FRANKLYN at 36w1d. Having irregul ar contractions. Denies cramping, abnormal bleeding, LOF. US 09/24 with EFW 19%, JAX wnl, vertex presentation. GBS screening today. WTC/WLB reviewed. RTC in [address] Arenas. Flowsheet Date 10/07/2020 Lord Score Blood Edema Fundus Height Fundus Units Glucose Ketones Leukocytes Nitrite Labor Signs Protein Cervic Dilation Cervic Effacement Cervic Station neg none 36 cm none negative none neg 0cm 0% - 4 Type Weight in lbs Pre/Post Dialysis Refused With clothes 214.344529994623 BP Diastolic BP Location Tested BP Systolic BP Type 76 104 sitting Fetus Heart Rate Present A 144 Present Fetus Movement A Yes Comments cultures/wtc/wlb/ iol 10/21 Flowsheet Date 10/15/2020 Lord Score Blood Edema Fundus Height Fundus Units Glucose Ketones Leukocytes Nitrite Labor Signs Protein Cervic Dilation Cervic Effacement Cervic Station neg none 38 wks none negative none neg Type Weight in lbs Pre/Post Dialysis Refused With clothes 213.854340625413 BP Diastolic BP Location Tested BP Systolic BP Type 58 118 sitting Fetus Heart Rate Present A 150 Present Fetus Movement A Yes Comments 25yoAAF here for FRANKLYN at 38w0d. Induction of labor scheduled for next Monday (10/23/20). Flowsheet Date 11/19/2020 Lord Score Blood Edema Fundus Height Fundus Units Glucose Ketones Leukocytes Nitrite Labor Signs Protein Cervic Dilation Cervic Effacement Cervic Station Type Weight in lbs Pre/Post Dialysis Refused With clothes 221.162189688304 BP Diastolic BP Location Tested BP Systolic BP Type Fetus Heart Rate Present Fetus Movement Comments Menstrual History Last Menstrual Date Menses Monthly On Bcp Conception Prior Menses Frequency Hcg Plus Date Menarche Onset Age 0301/23/2020 false Genetic Screening And Infection History Question Response Note Patient's Age Will Be 35 Years Or Older At Estim ated Date of Delivery false Thalassemia (Northern Irish, Nepalese, Mediterranean, Or Background): MCV < 80 false Neural Tube Defect (Meningomyelocele, Spina Bifi da, Or Anencephaly) false Congenital Heart Defect false Down Syndrome false Riccardo-Sachs (eg, Temple, Cajun, Montserratian-Patrick) f alse Shira Disease false Sickle Cell Disease Or Trait () false Hemophilia Or Other Blood Disorders false Muscular Dystrophy false Cystic Fibrosis false [place]'s Chorea false Mental Retardation/Autism false If Yes, Was Person Tested For Fragile X? false Other Inherited Genetic Or Chromosomal Disorder false Maternal Metabolic Disorder (eg, Type 1 Diabetes , PKU) false Patient Or Baby's Father Had A Child With Defects Not Listed Above false Recurrent Loss, Or A Stillbirth false Medications (including Suppl ements, Vitamins, Herbs, OTC Drugs), Illicit/Recreational Drugs, Alcohol false If Yes, Agent(s) And Strength/Dosage false Any Other Genetic History false Live With Someone With TB Or Exposed To TB false Patient Or Partner Has History Of Genital Herpes true Rash Or Viral Illness Since Last Menstrual Perio d false History Of STD, Gonorrhea, Chlamydia, HPV, Syphi lis false Other Infection History true GBS History of HIV false History of Hepatitis false Prior GBS-infected child false Plans and Education First Trimester Discussed Date Discussion Item Discussion Note Discuss ed By 04/09/2020 Anticipated course o f care [email or web address] 04/09/2020 Alcohol [email or web address] 04/09/2020 Intimate partner violence miles [email or web address] 04/09/2020 Environmental/work hazards j [email or web address] 04/09/2020 Screening for aneuploidy jco [email or web address] 04/09/2020 Nutrition counseling ; special diet; dietary precautions (mercury, listeriosis) [email or web address] 04/09/2020 Childbirth classes/h ospital facilities schedule of classes provided [email or web address] 04/09/2020 HIV and other routin e tests [email or web address] 04/09/2020 Risk factors identif ied by history [email or web address] 04/09/2020 Weight gain counseling <20 pounds jcort [email or web address] 04/09/2020 Exercise [email or web address] 04/09/2020 Teratogens [email or web address] 04/09/2020 Use of any medicatio ns (including supplements, vitamins, herbs, or OTC drugs) [email or web address] 04/09/2020 plans to breastfeed jcortop assi1 04/09/2020 Sexual activity [email or web address] 04/09/2020 Tobacco/smoking cess ation counseling (ask, advise, assess, assist, and arrange) [email or web address] 04/09/2020 Illicit/recreational drugs j [email or web address] 04/09/2020 Dental care dental consent provided jcor [email or web address] 04/09/2020 Travel [email or web address] 04/09/2020 Seat belt use [email or web address] 04/09/2020 Indications for ultrasonography [email or web address] 04/09/2020 Avoidance of saunas or hot tubs [email or web address] 04/09/2020 Toxoplasmosis precau tions (cats/raw meat) [email or web address] Second Trimester Discussed Date Discussion Item Discussion Note Discuss ed By 05/21/2020 Select[facility] a care provider [facility] [email or web address] 05/21/2020 family planning/tubal sterilization Nexplanon [email or web address] 05/21/2020 Depression screening (when indicated) [email or web address] 05/21/2020 Abnormal lab values jcortopa [email or web address] 05/21/2020 Signs and symptoms o f labor [email or web address] 05/21/2020 Intimate partner violence miles [email or web address] 05/21/2020 Tobacco/smoking cess ation counseling (ask, advise, assess, assist, and arrange) [email or web address] Third Trimester Discussed Date Discussion Item Discussion Note Discuss ed By 07/30/2020 Intimate partner violence denies miles [email or web address] 07/30/2020 Anesthesia plans epidural [email or web address] 1 07/30/2020 [place] education (n ewborn screening, jaundice, SIDS/safe sleeping position, car seat) discussed at [facility] [email or web address] 07/30/2020 Circumcision yes [email or web address] 07/30/2020 Postterm counseling jcortopa ssi1 07/30/2020 movement monitoring kick counts dis cussed [email or web address] 07/30/2020 plans to breastfeed jcortop assi1 07/30/2020 Labor signs [email or web address] 07/30/2020 depression jcorto passi1 07/30/2020 Family medical leave or disability forms [email or web address] 07/30/2020 Tobacco/smoking cess ation counseling (ask, advise, assess, assist, and arrange) denies [email or web address] 07/30/2020 Signs and symptoms of preeclampsia [email or web address] Delivery Information Delivery Date Delivery Type Labor Anesthesia Weeks Gestation Incision Type Labor Labor Length Hrs Delivered By Post Complications Tubal Sterilization Discharge Date Comments 0 Sponta neous None 39.1 false mwasserman None false 10/25/2020 Discharge Information Feeding Method Contraceptive Method Maternal HG B and HCT Levels Bottle Nexplanon Ob Episode Information Episode Created Date Number of Fetuses Patient Bloodtype Patient rh Status Prepregnancy Weight lbs Domestic Partner Domestic Partner Phone Father Name Air And Hydronic Balancing Technician Status 11/17/19 16 1 B Positive 175 Alfred Medina Same CLOSED Fetus Data First Name Last Name Admitted to NICU Weight (g) Sex Living Outcome Pediatric Complications Fetus ID Race Codes Race Delivery Type Yovani Dupree kandy Lázaro false 3827.18 25 M true Full Term 20288 4-5 Black or Afric an Ameri can Vaginal Problems Problem Notes Baby Boy, Acosta Gurrola y, circumcision is Yes, Bottle Feeding, Estefania Kramer, DO for tong setter, NCB for vaginal . PPBC pills. changed her mind from nexplanon to control pills. MSimpson CIRCLE BEVELER information verified with patient on 05/25/2016 visit. Pt is GBS Positive. MSimpson CIRCLE BEVELER 05/25/2016 Problem Name Start Date End Date Resolution Snomed Code Not e Abnormal progesterone 12514058 0 Vitamin D deficiency 50234352 Varicella 13667050 Gastroesophageal reflux disease 911723079 Upper respiratory infection 54 852326 Pain in throat 902531911 Sinusitis 25093612 Lefty Calculation Initial Lefty Date Initial Exam Date Initial Exam Provider Initial Ultrasound Date Last Menstrual Period Date Ultra Sound Weeks Gestation 06/07/2016 11/17/2015 iman 12/02/2015 08/29/2015 13 Eighteen To Twenty Week Lefty Update Ultra Sound Date Fundal Height At Umbil Quickening Date Ultra Sound Latest Weeks Gestation Final Lefty Confirmed By Final Lefty Confirmed Date Final Lefty Date Ultra Sound Latest Days Gestation 12/02/19 16 13 iman 12/15/2015 016 0 Pre- Flowsheet Flowsheet Date 11/17/2015 Lord Score Blood Edema Fundus Height Fundus Units Glucose Ketones Leukocytes Nitrite Labor Signs Protein Cervic Dilation Cervic Effacement Cervic Station Type Weight in lbs Pre/Post Dialysis Refused 196.934143408583 BP Diastolic BP Location Tested BP Systolic BP Type 60 110 sitting Fetus Heart Rate Present Fetus Movement Comments Flowsheet Date 12/04/2015 Lord Score Blood Edema Fundus Height Fundus Units Glucose Ketones Leukocytes Nitrite Labor Signs Protein Cervic Dilation Cervic Effacement Cervic Station Type Weight in lbs Pre/Post Dialysis Refused BP Diastolic BP Location Tested BP Systolic BP Type Fetus Heart Rate Present Fetus Movement Comments Flowsheet Date 12/17/2015 Lord Score Blood Edema Fundus Height Fundus Units Glucose Ketones Leukocytes Nitrite Labor Signs Protein Cervic Dilation Cervic Effacement Cervic Station neg none 15 wks none trace none trace Type Weight in lbs Pre/Post Dialysis Refused 198.868491512859 BP Diastolic BP Location Tested BP Systolic BP Type 74 130 sitting Fetus Heart Rate Present A 134 Present Fetus Movement A No Comments quad screen in one week, US in 4 weeks, return to office in 5 weeks Flowsheet Date 01/21/2016 Lord Score Blood Edema Fundus Height Fundus Units Glucose Ketones Leukocytes Nitrite Labor Signs Protein Cervic Dilation Cervic Effacement Cervic Station neg none 20 none negative none neg Type Weight in lbs Pre/Post Dialysis Refused 203.52165244647 BP Diastolic BP Location Tested BP Systolic BP Type 78 120 sitting Fetus Heart Rate Present A 152 Present Fetus Movement A Yes Comments us nl labs nl Flowsheet Date 02/18/2016 Lord Score Blood Edema Fundus Height Fundus Units Glucose Ketones Leukocytes Nitrite Labor Signs Protein Cervic Dilation Cervic Effacement Cervic Station neg none 26 cm none negative none neg Type Weight in lbs Pre/Post Dialysis Refused 211.787421256125 BP Diastolic BP Location Tested BP Systolic BP Type 74 116 sitting Fetus Heart Rate Present A 146 Present Fetus Movement A Yes Comments URI sinusitis OB f/u Flowsheet Date 02/29/2016 Lord Score Blood Edema Fundus Height Fundus Units Glucose Ketones Leukocytes Nitrite Labor Signs Protein Cervic Dilation Cervic Effacement Cervic Station neg none 26 cm none negative none neg Type Weight in lbs Pre/Post Dialysis Refused 212.16214719246 BP Diastolic BP Location Tested BP Systolic BP Type 64 102 sitting Fetus Heart Rate Present A 134 Present Fetus Movement A Yes Comments Flowsheet Date 03/17/2016 Lord Score Blood Edema Fundus Height Fundus Units Glucose Ketones Leukocytes Nitrite Labor Signs Protein Cervic Dilation Cervic Effacement Cervic Station neg none 29 cm 2+ negative none neg Type Weight in lbs Pre/Post Dialysis Refused 219.854270326373 BP Diastolic BP Location Tested BP Systolic BP Type 50 100 sitting Fetus Heart Rate Present A 160 Present Fetus Movement A Yes Comments tdap, normal labs Flowsheet Date 04/04/2016 Lord Score Blood Edema Fundus Height Fundus Units Glucose Ketones Leukocytes Nitrite Labor Signs Protein Cervic Dilation Cervic Effacement Cervic Station neg none 29.5 cm 2+ negative none neg Type Weight in lbs Pre/Post Dialysis Refused 218.268003289151 BP Diastolic BP Location Tested BP Systolic BP Type 60 124 sitting Fetus Heart Rate Present A 145 Present Fetus Movement A Yes Comments Flowsheet Date 04/18/2016 Lord Score Blood Edema Fundus Height Fundus Units Glucose Ketones Leukocytes Nitrite Labor Signs Protein Cervic Dilation Cervic Effacement Cervic Station neg none 31 cm none negative none neg Type Weight in lbs Pre/Post Dialysis Refused 218.665132763295 BP Diastolic BP Location Tested BP Systolic BP Type 68 124 sitting Fetus Heart Rate Present A 143 Present Fetus Movement A Yes Comments Flowsheet Date 2016 Lord Score Blood Edema Fundus Height Fundus Units Glucose Ketones Leukocytes Nitrite Labor Signs Protein Cervic Dilation Cervic Effacement Cervic Station neg none 34 cm none negative none neg Type Weight in lbs Pre/Post Dialysis Refused 224.269887343834 BP Diastolic BP Location Tested BP Systolic BP Type 68 110 sitting Fetus Heart Rate Present A 144 Present Fetus Movement A Yes Comments 2weeks Flowsheet Date 05/12/2016 Lord Score Blood Edema Fundus Height Fundus Units Glucose Ketones Leukocytes Nitrite Labor Signs Protein Cervic Dilation Cervic Effacement Cervic Station neg trace 38 cm trace negative none trace 0cm 50% -4 Type Weight in lbs Pre/Post Dialysis Refused 228.707633142950 BP Diastolic BP Location Tested BP Systolic BP Type 70 126 sitting Fetus Heart Rate Present A 138 Present Fetus Movement A Yes Comments Flowsheet Date 05/18/2016 Lord Score Blood Edema Fundus Height Fundus Units Glucose Ketones Leukocytes Nitrite Labor Signs Protein Cervic Dilation Cervic Effacement Cervic Station neg trace 37 cm 1+ negative Dev Elena neg 0cm 50% -4 Type Weight in lbs Pre/Post Dialysis Refused 234.635340804451 BP Diastolic BP Location Tested BP Systolic BP Type 86 126 sitting Fetus Heart Rate Present A 136 Present Fetus Movement A Yes Comments Flowsheet Date 05/25/2016 Lord Score Blood Edema Fundus Height Fundus Units Glucose Ketones Leukocytes Nitrite Labor Signs Protein Cervic Dilation Cervic Effacement Cervic Station neg none 39 cm trace negative Perry Elena neg Type Weight in lbs Pre/Post Dialysis Refused 234.168405830021 BP Diastolic BP Location Tested BP Systolic BP Type 84 112 sitting Fetus Heart Rate Present A 156 Present Fetus Movement A No Comments Flowsheet Date 06/01/2016 Lord Score Blood Edema Fundus Height Fundus Units Glucose Ketones Leukocytes Nitrite Labor Signs Protein Cervic Dilation Cervic Effacement Cervic Station neg none 38 cm none negative neg 0cm 50% - 3 Type Weight in lbs Pre/Post Dialysis Refused 237.486021823662 BP Diastolic BP Location Tested BP Systolic BP Type 84 126 sitting Fetus Heart Rate Present A 159 Present Fetus Movement A Yes Comments Patient desires inducton of labor. Flowsheet Date 08/15/2016 Lord Score Blood Edema Fundus Height Fundus Units Glucose Ketones Leukocytes Nitrite Labor Signs Protein Cervic Dilation Cervic Effacement Cervic Station Type Weight in lbs Pre/Post Dialysis Refused 220.283512967715 BP Diastolic BP Location Tested BP Systolic BP Type 82 116 sitting Fetus Heart Rate Present Fetus Movement Comments Menstrual History Last Menstrual Date Menses Monthly On Bcp Conception Prior Menses Frequency Hcg Plus Date Menarche Onset Age 1008/29/2015 false false 07/20/2015 10/07/20 1 5 12 Genetic Screening And Infection History Question Response Note Patient's Age Will Be 35 Yea rs Or Older At Estimated Date of Delivery false Thalassemia (Northern Irish, Nepalese, Mediterranean, Or Background): MCV < 80 false Neural Tube Defect (Meningom yelocele, Spina Bifida, Or Anencephaly) false Congenital Heart Defect false Down Syndrome false Riccardo-Sachs (eg, Temple, Cajun, Montserratian-Patrick) f alse Shira Disease false Sickle Cell Disease Or Trait () false Hemophilia Or Other Blood Disorders false Muscular Dystrophy false Cystic Fibrosis false [place]'s Chorea false Mental Retardation/Autism false If Yes, Was Person Tested For Fragile X? false Other Inherited Genetic Or Chromosomal Disorder false Maternal Metabolic Disorder (eg, Type 1 Diabetes , PKU) false Patient Or Baby's Father Had A Child With Defects Not Listed Above false Recurrent Loss, Or A Stillbirth false Medications (including Suppl ements, Vitamins, Herbs, OTC Drugs), Illicit/Recreational Drugs, Alcohol true v itamin If Yes, Agent(s) And Strength/Dosage false Any Other Genetic History false Live With Someone With TB Or Exposed To TB false Patient Or Partner Has History Of Genital Herpes false Rash Or Viral Illness Since Last Menstrual Perio d false History Of STD, Gonorrhea, Chlamydia, HPV, Syphi lis false Other Infection History false Plans and Education First Trimester Discussed Date Discussion Item Discussion Note Discuss ed By 12/04/2015 Anticipated course of care Hando ut given [email or web address] 12/04/2015 Alcohol Handout given [place] [id number] 12/17/2015 Intimate partner violence [facility] 12/17/2015 Environmental/work hazards [facility] 12/17/2015 Screening for aneuploidy [facility]le 12/04/2015 Nutrition counseling ; special diet; dietary precautions (mercury, listeriosis) Handout given [place] [id number] 12/17/2015 Childbirth classes/hospital facilities [facility] 12/04/2015 HIV and other routine tests [place] [id number] 12/17/2015 Risk factors identif ied by history [facility] 12/04/2015 Weight gain counseling Handout given [facility] 12/04/2015 Exercise Handout given [place] [id number] 12/04/2015 Teratogens Handout given [place] [id number] 12/17/2015 Use of any medicatio ns (including supplements, vitamins, herbs, or OTC drugs) [facility] 12/04/2015 bottle [place] [address] 12/17/2015 Sexual activity [facility] 12/04/2015 Tobacco/smoking cess ation counseling (ask, advise, assess, assist, and arrange) Handout given [place] [id number] 12/04/2015 Illicit/recreational drugs Handout given [email or web address] 12/04/2015 Dental care Handout given [email or web address] 12/17/2015 Travel [facility] 12/04/2015 Seat belt use Handout given [email or web address] 12/17/2015 Indications for ultrasonography [facility] 12/04/2015 Avoidance of saunas or hot tubs Handout kj patel 12/04/2015 Toxoplasmosis precautions (cats/raw meat) Handout given [email or web address] Second Trimester Discussed Date Discussion Item Discussion Note Discuss ed By 12/04/2015 Selecting a care provider Dr. Kramer [place] [id number] 12/04/2015 family planning/tubal sterilization Nexplanon or BCP's for PPBC dependent on if patient gets insurance taken care of. Advised patient [email or web address] 12/17/2015 Depression screening (when indicated) [facility] 12/17/2015 Abnormal lab values [facility] an 12/17/2015 Signs and symptoms o f labor [facility] 12/17/2015 Intimate partner violence [facility] 12/17/2015 Tobacco/smoking cess ation counseling (ask, advise, assess, assist, and arrange) [facility] Third Trimester Discussed Date Discussion Item Discussion Note Discuss ed By 05/25/2016 Intimate partner violence ms [email or web address] 12/04/2015 [facility]esthesia plans [facility] 05/25/2016 education (n ewborn screening, jaundice, SIDS/safe sleeping position, car seat) [email or web address] 12/04/2015 Circumcision Yes 05/25/2016 [facility] 05/25/2016 movement monitoring given kick coun ts [email or web address] 12/04/2015 bottle [email or web address] 05/25/2016 Labor signs given WTC and WLB [email or web address] 05/25/2016 depression [facility] on19 05/25/2016 Family medical leave or disability forms [email or web address] Trial of labor after (TOLAC) counseling first 05/25/2016 Signs and symptoms of preeclampsia [email or web address] Delivery Information Delivery Date Delivery Type Labor Anesthesia Weeks Gestation Incision Type Labor Labor Length Hrs Delivered By Post Complications Tubal Sterilization Discharge Date Comments 6 Induce d Regional-Ep idural 39.6 false None false 06/08/2016 Francesco Kramer Discharge Information Feeding Method Contraceptive Method Maternal HG B and HCT Levels Bottle Ob Episode Information Episode Created Date Number of Fetuses Patient Bloodtype Patient rh Status Prepregnancy Weight lbs Domestic Partner Domestic Partner Phone Father Name Air And Hydronic Balancing Technician Status 01/20/20 17 1 B Positive 213 [facility] will decide CLOSED Fetus Data First Name Last Name Admitted to NICU Weight (g) Sex Living Outcome Pediatric Complications Fetus ID Race Codes Race Delivery Type Bereket werner false 3657.08 55 M true Full Term 03353 4-5 Black or Afric an Ameri can Vaginal Problems Problem Notes baby boy, Bereket Del Angel ler, yes to circumcision, breast and bottle feed, vaginal with epidural, Bibi Ryder MD Dr. SIKayla, ppb to be decided. gave info to take home,[id number] pt. pamphlets on IUDS. gino sewell Bottle feed PPBC pill, sd,ma Problem Name Start Date End Date Resolution Snomed Code Not e Abnormal progesterone 01/11/2017 3046567 00 low at initial ob labs Group B Streptococcus carrier 01/25/2017 [id number] Varicella vaccination 58458891 varicella non immune needs vaccine post mds Varicella 80005247 Lfety Calculation Initial Lefty Date Initial Exam Date Initial Exam Provider Initial Ultrasound Date Last Menstrual Period Date Ultra Sound Weeks Gestation 08/23/2017 01/19/2017 iman 02/01/2017 10/13/2016 11 Eighteen To Twenty Week Lefty Update Ultra Sound Date Fundal Height At Umbil Quickening Date Ultra Sound Latest Weeks Gestation Final Lefty Confirmed By Final Lefty Confirmed Date Final Lefty Date Ultra Sound Latest Days Gestation 02/02/20 17 11 iman 02/16/2017 017 0 Pre-nisha Flowsheet Flowsheet Date 01/19/2017 Lord Score Blood Edema Fundus Height Fundus Units Glucose Ketones Leukocytes Nitrite Labor Signs Protein Cervic Dilation Cervic Effacement Cervic Station neg none 8 wks none small trace Type Weight in lbs Pre/Post Dialysis Refused 214.290839589082 BP Diastolic BP Location Tested BP Systolic BP Type 80 124 sitting Fetus Heart Rate Present A Absent Fetus Movement A No Comments NOB Flowsheet Date 02/03/2017 Lord Score Blood Edema Fundus Height Fundus Units Glucose Ketones Leukocytes Nitrite Labor Signs Protein Cervic Dilation Cervic Effacement Cervic Station Type Weight in lbs Pre/Post Dialysis Refused BP Diastolic BP Location Tested BP Systolic BP Type Fetus Heart Rate Present Fetus Movement Comments Flowsheet Date 02/16/2017 Lord Score Blood Edema Fundus Height Fundus Units Glucose Ketones Leukocytes Nitrite Labor Signs Protein Cervic Dilation Cervic Effacement Cervic Station neg none 13 wks none trace none neg Type Weight in lbs Pre/Post Dialysis Refused 216.314428426001 BP Diastolic BP Location Tested BP Systolic BP Type 70 116 sitting Fetus Heart Rate Present A 155 Present Fetus Movement A No Comments changed fe to gluconate/ gbs +/ afp next/ us Flowsheet Date 03/21/2017 Lord Score Blood Edema Fundus Height Fundus Units Glucose Ketones Leukocytes Nitrite Labor Signs Protein Cervic Dilation Cervic Effacement Cervic Station trace none 17.6 wks none negative none trace Type Weight in lbs Pre/Post Dialysis Refused 226.223238454129 BP Diastolic BP Location Tested BP Systolic BP Type 56 112 sitting Fetus Heart Rate Present A 148 Present Fetus Movement A No Comments AFP/ultrasound Flowsheet Date 04/18/2017 Lord Score Blood Edema Fundus Height Fundus Units Glucose Ketones Leukocytes Nitrite Labor Signs Protein Cervic Dilation Cervic Effacement Cervic Station neg none 22 cm none negative none neg Type Weight in lbs Pre/Post Dialysis Refused 231.915286990911 BP Diastolic BP Location Tested BP Systolic BP Type 62 106 Fetus Heart Rate Present A 150 Present Fetus Movement A Yes Comments Flowsheet Date 05/11/2017 Lord Score Blood Edema Fundus Height Fundus Units Glucose Ketones Leukocytes Nitrite Labor Signs Protein Cervic Dilation Cervic Effacement Cervic Station neg none 27 cm none negative none neg Type Weight in lbs Pre/Post Dialysis Refused 231.118093088488 BP Diastolic BP Location Tested BP Systolic BP Type 62 106 Fetus Heart Rate Present A 140 Present Fetus Movement A Yes Comments 1hr GTT and Tdap done today, US ordered; will follow-up in one month. Flowsheet Date 06/08/2017 Lord Score Blood Edema Fundus Height Fundus Units Glucose Ketones Leukocytes Nitrite Labor Signs Protein Cervic Dilation Cervic Effacement Cervic Station neg trace 32 cm none negative none trace Type Weight in lbs Pre/Post Dialysis Refused 227.084285863485 BP Diastolic BP Location Tested BP Systolic BP Type 66 114 sitting Fetus Heart Rate Present A 160 Present Fetus Movement A Yes Comments Flowsheet Date 07/03/2017 Lord Score Blood Edema Fundus Height Fundus Units Glucose Ketones Leukocytes Nitrite Labor Signs Protein Cervic Dilation Cervic Effacement Cervic Station neg none 33 cm none negative none neg Type Weight in lbs Pre/Post Dialysis Refused 233.871284116057 BP Diastolic BP Location Tested BP Systolic BP Type 60 120 sitting Fetus Heart Rate Present A 141 Present Fetus Movement A Yes Comments Begin exams at 36 weeks. Flowsheet Date 07/19/2017 Lord Score Blood Edema Fundus Height Fundus Units Glucose Ketones Leukocytes Nitrite Labor Signs Protein Cervic Dilation Cervic Effacement Cervic Station neg none 39.5 cm none negative none neg Type Weight in lbs Pre/Post Dialysis Refused 235.495980823072 BP Diastolic BP Location Tested BP Systolic BP Type 64 118 Fetus Heart Rate Present A 130 Present Fetus Movement A Yes Comments Flowsheet Date 07/26/2017 Lord Score Blood Edema Fundus Height Fundus Units Glucose Ketones Leukocytes Nitrite Labor Signs Protein Cervic Dilation Cervic Effacement Cervic Station neg none 36 cm none negative none neg 0cm 0% - 4 Type Weight in lbs Pre/Post Dialysis Refused 236.837815613431 BP Diastolic BP Location Tested BP Systolic BP Type 62 116 sitting Fetus Heart Rate Present A 144 Present Fetus Movement A Yes Comments WTC/WLB/36W LABS Flowsheet Date 08/02/2017 Lord Score Blood Edema Fundus Height Fundus Units Glucose Ketones Leukocytes Nitrite Labor Signs Protein Cervic Dilation Cervic Effacement Cervic Station neg 1+ 37 cm none negative none trace 0cm 0% -4 Type Weight in lbs Pre/Post Dialysis Refused 238.749236369788 BP Diastolic BP Location Tested BP Systolic BP Type 58 112 sitting Fetus Heart Rate Present A 145 Present Fetus Movement A Yes Comments wtc wlb Flowsheet Date 08/10/2017 Lord Score Blood Edema Fundus Height Fundus Units Glucose Ketones Leukocytes Nitrite Labor Signs Protein Cervic Dilation Cervic Effacement Cervic Station neg trace 40 cm none negative Uterine Contract ions neg Type Weight in lbs Pre/Post Dialysis Refused 241.52631152685 BP Diastolic BP Location Tested BP Systolic BP Type 60 102 Fetus Heart Rate Present A 145 Present Fetus Movement A Yes Comments WTC, WLB, reviewed FCK's. Menstrual History Last Menstrual Date Menses Monthly On Bcp Conception Prior Menses Frequency Hcg Plus Date Menarche Onset Age 1210/13/2016 Genetic Screening And Infection History Question Response Note Patient's Age Will Be 35 Yea rs Or Older At Estimated Date of Delivery false Thalassemia (Northern Irish, Nepalese, Mediterranean, Or Background): MCV < 80 false Neural Tube Defect (Meningomyelocele, Spina Bifi da, Or Anencephaly) false Congenital Heart Defect false Down Syndrome false Riccardo-Sachs (eg, [place], Cajun, Montserratian-Patrick) f alse Shira Disease false Sickle Cell Disease Or Trait () false Hemophilia Or Other Blood Disorders false Muscular Dystrophy false Cystic Fibrosis false Niyah's Chorea false Mental Retardation/Autism false If Yes, Was Person Tested For Fragile X? false Other Inherited Genetic Or Chromosomal Disorder false Maternal Metabolic Disorder (eg, Type 1 Diabetes , PKU) false Patient Or Baby's Father Had A Child With Defects Not Listed Above false Recurrent Loss, Or A Stillbirth false Medications (including Suppl ements, Vitamins, Herbs, OTC Drugs), Illicit/Recreational Drugs, Alcohol true see list If Yes, Agent(s) And Strength/Dosage false Any Other Genetic History false Live With Someone With TB Or Exposed To TB false Patient Or Partner Has History Of Genital Herpes false Rash Or Viral Illness Since Last Menstrual Perio d false History Of STD, Gonorrhea, Chlamydia, HPV, Syphi lis false Other Infection History true gbs+ Plans and Education First Trimester Discussed Date Discussion Item Discussion Note Discuss ed By 02/03/2017 Anticipated [facility]2017 Alcohol [facility] 02/03/2017 Intimate partner violence rh unley02/03/2017 Environmental/work hazards r [email or web address] 02/03/2017 Screening for aneuploidy rhu nley02/03/2017 Nutrition counseling ; special diet; dietary precautions (mercury, listeriosis) [facility]/03/2017 Childbirth classes/h ospital facilities given handout for classes at [facility] at initial ob visit [facility]/03/2017 HIV and other routin e tests at initial ob visit [facility]/03/2017 Risk factors identif ied by history [email or web address] 02/03/2017 Weight gain counseling rhunl [email or web address] 02/03/2017 Exercise [place] [id number] 02/03/2017 Teratogens unley02/03/2017 Use of any medicatio ns (including supplements, vitamins, herbs, or OTC drugs) [facility] 02/03/2017 will try breast feeding rhu nley1 02/03/2017 [facility] 02/03/2017 Tobacco/smoking cess ation counseling (ask, advise, assess, assist, and arrange) [place] [address] 02/03/2017 Illicit/recreational drugs r [email or web address] 02/03/2017 Dental care given dental con sent at initial ob [facility] 02/03/2017 Travel [place] [id number] 02/03/2017 Seat belt use [place] [id number] 02/03/2017 Indications for ultrasonography [place] [address] 02/03/2017 Avoidance of saunas or hot tubs [place] [address] 02/03/2017 Toxoplasmosis precau tions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
== END 2025-01-27 12:47 | disposition home or self-care (01) ==
LOC: ANHIMG 12:48
PROVIDERS: Visit Provider Physician Assistant Medical
DX: Z32.01 Encounter for pregnancy test, result positive (principal); Z3A.11 11 weeks gestation of pregnancy
CPT/HCPCS: 76801

== ENCOUNTER 2025-07-30 20:09 | Observation (INO) | payer OTHER, SELFPAY ==
--- NOTE | 2025-07-30 22:12 | OBADM ---
This patient, Ashlee Hatch, admitted to the OB room Labor/Delivery/Recovery 106 for observation. Patient/family oriented to hospital policies and general routines including ID bracelet, bed and alarms, visiting hours, pain management, procedures, bathroom and other care routines, personal items, smoking policy, room service/diet, and visiting hours. Patient/Family are encouraged to report perceived risks to care and to ask questions if they do not understand what they are told or what they should do.
--- NOTE | 2025-08-11 07:57 | PM.OBTRLD ---
OB - Triage/Final Diagnosis Visit Information Comments/Additional reasons for admission: I have assessed the risk for this patient, Ashlee Hatch, and determined that she would benefit from observation care. Final Diagnosis (1) False labor: Code(s): O47.9 - False labor, unspecified Status: Acute
== END 2025-07-30 22:42 | disposition home or self-care (01) ==
PROVIDERS: Admitting Provider Obstetrics & Gynecology; Visit Provider Obstetrics & Gynecology
DX: O47.1 False labor at or after 37 completed weeks of gestation (principal); O99.820 Streptococcus B carrier state complicating pregnancy; Z3A.37 37 weeks gestation of pregnancy
CPT/HCPCS: G0378; G0379

== ENCOUNTER 2025-08-10 15:47 | Inpatient (IN) | payer OTHER, SELFPAY ==
[2025-08-10] VITALS (33 sets, daily range): BP systolic 105–128; BP diastolic 65–80; PULSE 73–108; TEMP 36.6–36.8; O2SAT 97–100; BMI 39.7
--- OUTSIDE RECORDS SUMMARY | 2025-08-10 15:54 | XMS_ITS | Data Portability ---
Author Organization [facility] H Address [address] [place] [address] Care Team Providers Care Gynecologist Name Role Phone SAY EGAN Hosp[facility] Nurse Practitioner [phone] Assessment Encounter Date Assessment Date Assessment LastModified by Organization Details LastModified Time 02/05/2025 02/05/2025 Olga HI Not available 02/05/2025 15:05:31 Plan of Treatment Reminders Order Date Submit Date Provider Last Modified By Organization Details Last Modified Time Details Appointments None recorded. Lab urinalysis , dipstick 2024 025 [email or web address] In-Office Order, Internal Use Only DO Not Attach Compendium DO Not Attach Compendium, Do Not Delete/merge, [id number] 16:07:59 HbA1c (hemoglobi n A1c), blood 2024 025 [facility], [address], [place], [address], 17:17:01 CFTR mutation, blood or tissue 2024 025 [facility], [address], [place], [address], 17:16:58 CMP, serum or plasma 2024 025 [facility], [address], [place], [address], 17:16:57 CBC w/ auto diff 2024 025 [facility], [address] [place] [address], [address], [place], [address], 5 17:17:03 culture, urine 2024 025 [facility], [address] [place] [address], [address], [place], [address], 5 06:22:01 hemoglobin (Hb) electropho resis, blood 2024 025 [facility], [address] [place] [address], [address], [place], [address], 5 17:16:53 HIV 1 + 2, meaningful use set 2024 025 [facility], [address], [place], [address], 5 17:17:08 aneuploidy risk and X & Y analysis, chromosome specific circulatin g cell free (CCF) DNA, maternal serum 2024 025 [facility], [address], [place], [address], 5 06:09:36 abo group + rh type, blood 2024 025 [facility], [address], [place], [address], 5 17:17:04 drug screen, 5 drugs, urine 2024 025 [facility], [address], [place], [address], 5 17:17:00 rubella IgG Ab, quant immunoassa y, serum or plasma 2024 025 [facility], [address], [place], [address], 5 17:17:07 RPR (rapid plasma reagin), serum 2024 025 [facility], [address], [place], [address], 5 17:17:06 varicella zoster virus IgG Ab, QL, IA, serum 2024 025 [facility], [address], [place], [address], 5 17:17:10 vaginal pathogens panel, SHAYAN+probe, vaginal fluid 2024 025 [facility], [address], [place], [address], 5 06:22:03 hepatitis panel (A+B+C), acute, serum 2024 025 [facility], [address], [place], [address], 5 17:16:55 cytology report, thin prep, smear or scraping, cervical or vaginal 2024 025 [facility], [address], [place], [address], 5 13:20:59 urinalysis , dipstick 2024 025 In-Office Order, Internal Use Only DO Not Attach Compendium DO Not Attach Compendium, Do Not Delete/merge, [id number] 15:33:38 test, urine 2024 025 [email or web address] In-Office Order, Internal Use Only DO Not Attach Compendium DO Not Attach Compendium, Do Not Delete/merge, [id number] 5 15:33:38 HCG, intact + beta subunit, quant, serum or plasma 2024 025 [facility], [address], [place], [address], 5 14:13:33 test, urine 2024 025 FARWELL In-Office Order, Internal Use Only DO Not Attach Compendium DO Not Attach Compendium, Do Not Delete/merge, [id number] 5 16:03:08 pap, IG + reflex HPV 2022 023 [facility], [address], [place], [address], 3 20:08:42 test, urine 2022 023 [email or web address] In-Office Order, Internal Use Only DO Not Attach Compendium DO Not Attach Compendium, Do Not Delete/merge, [id number] 3 10:23:58 chlamydia trachomati s + neisseria gonorrhoea e + trichomona s vaginalis DNA panel, SHAYAN+probe, unspecifie d specimen 2022 023 [facility], [address], [place], [address], 3 03:08:08 Referral obstetrici an referral 2024 025 FARWELLROSA Marino MD, [address], [address], [place], [address], 5 14:50:51 Procedures None recorded. Surgeries None recorded. Imaging US, obstetric, 1st trimester 2024 025 [facility]), [address], [place], [address], 08:22:39 Medication Orders 28 mg iron-800 mcg tablet 2024 025 [id number], [address], [place], [id number], 15:33:42 Patient TargetsNo targets recorded. Patient Instructions Encounter Date Encounter Id Patient Instructions Last Modified By Organization Details Last Modified Time 10/31/2023 [id number] Well Visit, Ages 18 to 65: Care Instructions [email or web address] Not available 10/31/2023 10:23:38 12/09/2024 [id number] Attending Physician Attestation S: 29 yo F here for combined OCP refill. Ran out of pills in Dec but used condoms regularly. O: BP 124/78. BMI 37.8. A/P: Contraception refill - UPT positive; unable to refill OCPs at this time. Patient to RTC for serum hCG, discussion of options. I did not personally see or examine the patient with the resident. I was physically present to provide indirect supervision through entire encounter. Plan discussed with resident as documented in my brief note above. Loida Lange MD [email or web address] Not available 12/09/2024 16:02:35 01/16/2025 [id number] A healthy lifestyle: care instructions Not available 01/16/2025 15:33:37 --Discussed with Dr. Mariama combs Not available 01/17/2025 14:59:35 02/05/2025 [id number] A healthy lifestyle: care instructions [email or web address] Not available 02/05/2025 15:02:38 proteinuria: car e instructions [email or web address] Not available 02/05/2025 15:02:37 03/05/2025 [id number] A healthy lifestyle: care instructions Not available 03/05/2025 16:07:59 --Discussed with Dr. Mariama combs Not available 03/05/2025 18:47:04 Reason for Referral [employer] Referral for An tenatal care status Referring Physician: Davin Rajput, Family Medicine, Encounter Date: 03/05/2025 Results Created Date Observation Date Name Description Value Unit Range Abnormal Flag Note LastModifiedBy Organization Detail LastModifiedTime 10/20/20 23 10/20/2023 pregn mac test, urine HCG negati ve Not Available In-Office Order Internal Use Only DO Not Attach Compendium DO Not Attach Compendium, Do Not Delete/merge, [id number] 10/20/2023 09:40:34 10/31/20 23 11/01/2023 IGP,A PTIMA HPV,A GE GDLN age gdln acog testing 21- Not Available [facility] ([facility]) [address] [facility], [place], [address], 11/02/2023 20:08:42 10/31/20 23 11/02/2023 IGP, RFX APTIM A HPV ASCU diagnosis: Cynthia CASTANON FOR INTRA EPITH ELIAL TRACY Ortiz OR RADHA HERRERA . Not Available [facility] ([facility]) [address] [facility], [place], [address], 11/02/2023 20:08:43 10/31/20 23 11/02/2023 IGP, RFX APTIM A HPV ASCU specimen adequacy: Cynthia t Satis facto ry for evalu ation . Endoc ervic al and/o r squam ous metap lasti c cells (endo cervi fred compo nent) are prese nt. Not Available [facility] ([facility]) [address] [facility], [place], [address], 11/02/2023 20:08:43 10/31/20 23 11/02/2023 IGP, RFX APTIM A HPV ASCU clinician provided ICD10: Cynthia baker Z01.4 19 Not Available [facility] ([facility]) [address] [place], [address], 11/02/2023 20:08:43 10/31/20 23 11/02/2023 IGP, RFX APTIM A HPV ASCU performed by: Cynthia delacruz, Cytot amber baker (ASCP ) Not Available [facility] ([facility]) [address] [place], [address], 11/02/2023 20:08:43 10/31/20 23 11/02/2023 IGP, RFX APTIM A HPV ASCU . . Not Available [facility] ([facility]) [address] [facility], [place], [address], 11/02/2023 20:08:43 10/31/20 23 11/02/2023 IGP, RFX APTIM A HPV ASCU note: Commen t The Pap smear is a scree luis test desig thais to aid in the detec tion of shayan ligna nt and malig nant condi tions of the uteri ne cervi x. It is not a diagn ostic proce dure and shoul d not be used as the sole means of detec ting cervi fred cance r. Both false -posi tive and false -nega tive repor ts do occur . Not Available [facility] ([facility]) [address] [facility], [place], [address], 11/02/2023 20:08:43 10/31/20 23 11/02/2023 IGP, RFX APTIM A HPV ASCU test methodology: Commen t This liqui d based ThinP rep(R ) pap test was scree thais with the use of an image guide d syste m. Not Available [facility] ([facility]) [address] [facility], [place], [address], 11/02/2023 20:08:43 10/31/20 23 11/02/2023 IGP, RFX APTIM A HPV ASCU . Commen t The HPV DNA refle x crite geovanni were not met with this speci men resul t there fore, no HPV testi ng was perfo rmed. Not Available [facility] ([facility]) [address] [place], [address], 11/02/2023 20:08:43 10/31/20 23 11/01/2023 CT, NG, TRICH VAG BY SHAYAN chlamydia by SHAYAN Negati ve negati ve Not Available [facility] ([facility]) [address] [place], [address], 11/02/2023 03:08:07 10/31/20 23 11/01/2023 CT, NG, TRICH VAG BY SHAYAN gonococcus by SHAYAN Negati ve negati ve Not Available [facility] ([facility]) [address] [place], [address], 11/02/2023 03:08:07 10/31/20 23 11/01/2023 CT, NG, TRICH VAG BY SHAYAN trich vag by SHAYAN Negati ve negati ve Not Available [facility] ([facility]) [address] [place], [address], 11/02/2023 03:08:07 10/31/20 23 10/31/2023 pregn mac test, urine HCG negati ve Not Available In-Office Order Internal Use Only DO Not Attach Compendium DO Not Attach Compendium, Do Not Delete/merge, [id number] 10/31/2023 10:15:58 12/09/1912/10/2024 HCG,B ETA SUBUN IT, QNT HCG,beta subunit,qnt, serum 30 mIU/m L Femal e (Non- pregn ant) 0 - 5 (Post menop ausal ) 0 - 8 Femal e (Preg nant) Weeks of Gesta tion 3 6 - 71 4 10 - 750 5 249 - 0464 6 242 - 39714 7 2324 -7740 63 8 17713 -8761 71 9 50898 -0054 10 10 98771 -0546 77 12 11145 -5192 12 14 98139 - 03252 15 07005 - 52161 16 6080 - 10873 17 7257 - 43144 18 5124 - 87432 Marisabel ECLIA metho dolog y Not Available [facility] ([facility]) [address] [place], [address], 12/10/2024 14:13:33 12/09/19 25 12/09/2024 pregn mac test, urine HCG positi ve Not Available In-Office Order Internal Use Only DO Not Attach Compendium DO Not Attach Compendium, Do Not Delete/merge, [facility] 12/09/2024 14:43:36 01/17/20 25 01/16/2025 urina lysis , dipst ick Leukocytes Negati ve Not Available In-Office Order Internal Use Only DO Not Attach Compendium DO Not Attach Compendium, Do Not Delete/merge, [facility] 01/16/2025 15:03:09 01/17/20 25 01/16/2025 urina lysis , dipst ick Nitrite negati ve Not Available In-Office Order Internal Use Only DO Not Attach Compendium DO Not Attach Compendium, Do Not Delete/merge, [facility] 01/16/2025 15:03:09 01/17/20 25 01/16/2025 urina lysis , dipst ick Urobilinogen .2 Not Available In-Of fice Order Internal Use Only DO Not Attach Compendium DO Not Attach Compendium, Do Not Delete/merge, [facility] 01/16/2025 15:03:09 01/17/20 25 01/16/2025 urina lysis , dipst ick Protein Negati ve Not Available In-Office Order Internal Use Only DO Not Attach Compendium DO Not Attach Compendium, Do Not Delete/merge, [facility] 01/16/2025 15:03:09 01/17/20 25 01/16/2025 urina lysis , dipst ick pH 6.0 Not Available In-Office Order Internal Use Only DO Not Attach Compendium DO Not Attach Compendium, Do Not Delete/merge, [facility] 01/16/2025 15:03:09 01/17/20 25 01/16/2025 urina lysis , dipst ick Blood Negati ve Not Available In-Office Order Internal Use Only DO Not Attach Compendium DO Not Attach Compendium, Do Not Delete/merge, [facility] 01/16/2025 15:03:09 01/17/20 25 01/16/2025 urina lysis , dipst ick Specific [place] 1.030 Not Available In-Off ice Order Internal Use Only DO Not Attach Compendium DO Not Attach Compendium, Do Not Delete/merge, [facility] 01/16/2025 15:03:09 01/17/20 25 01/16/2025 urina lysis , dipst ick Ketone Negati ve Not Available In-Office Order Internal Use Only DO Not Attach Compendium DO Not Attach Compendium, Do Not Delete/merge, [facility] 01/16/2025 15:03:09 01/17/20 25 01/16/2025 urina lysis , dipst ick Bilirubin Negati ve Not Available In-Office Order Internal Use Only DO Not Attach Compendium DO Not Attach Compendium, Do Not Delete/merge, [facility] 01/16/2025 15:03:09 01/17/20 25 01/16/2025 urina lysis , dipst ick Glucose Negati ve Not Available In-Office Order Internal Use Only DO Not Attach Compendium DO Not Attach Compendium, Do Not Delete/merge, [facility] 01/16/2025 15:03:09 01/17/20 25 01/16/2025 urina lysis , dipst ick Appearance Clear Not Available In-Offi ce Order Internal Use Only DO Not Attach Compendium DO Not Attach Compendium, Do Not Delete/merge, [facility] 01/16/2025 15:03:09 01/17/20 25 01/16/2025 urina lysis , dipst ick Color Yellow Not Available In-Office Order Internal Use Only DO Not Attach Compendium DO Not Attach Compendium, Do Not Delete/merge, [facility] 01/16/2025 15:03:09 01/17/20 25 01/16/2025 pregn mac test, urine HCG positi ve Not Available In-Office Order Internal Use Only DO Not Attach Compendium DO Not Attach Compendium, Do Not Delete/merge, [facility] 01/16/2025 15:03:18 02/06/20 25 02/07/2025 URINE CULTU REJOSS urine culture, routine FINAL REPORT Not Available [facility] ([facility]) [address] [facility], [place], [address], 02/07/2025 06:22:01 02/06/20 25 02/07/2025 URINE CULTU RE, ROUTI NE result 1 COMMEN T Mixed uroge nital dave 25,00 0-50, 000 colon y formi ng units per mL Not Available [facility] ([facility]) [address] [place], [address], 02/07/2025 06:22:01 02/06/20 25 02/06/2025 NUSWA B VAGIN ITIS PLUS (VG+) atopobium vaginae MODERA TE - 1 score Not Available [facility] ([facility]) [address] [facility], [place], [address], 02/07/2025 06:22:03 02/06/2002/06/2025 NUSWA B VAGIN ITIS PLUS (VG+) bvab 2 LOW - 0 score Not Available [facility] ([facility]) [address] [facility], [place], [address], 02/07/2025 06:22:03 02/06/20 25 02/06/2025 NUSWA B VAGIN ITIS PLUS (VG+) megasphaera 1 LOW - 0 score Calcu late total score by karo underwood the 3 indiv idual bacte rial vagin osis (BV) marke r score s toget her. Total score is inter prete d as follo ws: Total score 0-1: Indic ates the absen ce of BV. Total score 2: Indet ermin ate for BV. Addit ional clini fred data shoul d be evalu ated to estab tigre a diagn osis. Total score 3-6: Indic ates the prese nce of BV. Not Available [facility] ([facility]) [address] [place], [address], 02/07/2025 06:22:03 02/06/20 25 02/06/2025 NUSWA B VAGIN ITIS PLUS (VG+) issa albicans, SHAYAN NEGATI VE negati ve Not Available [facility] ([facility]) [address] [place], [address], 02/07/2025 06:22:03 02/06/20 25 02/06/2025 NUSWA B VAGIN ITIS PLUS (VG+) issa glabrata, SHAYAN NEGATI VE negati ve Not Available [facility] ([facility]) [address] [facility], [place], [address], 02/07/2025 06:22:03 02/06/20 25 02/06/2025 NUA B VAGIN ITIS PLUS (VG+) trich vag by SHAYAN NEGATI VE negati ve Not Available [facility] ([facility]) [address] [facility], [place], [address], 02/07/2025 06:22:03 02/06/20 25 02/06/2025 NUA B VAGIN ITIS PLUS (VG+) chlamydia trachomatis, SHAYAN NEGATI VE negati ve Not Available [facility] ([facility]) [address] [facility], [place], [address], 02/07/2025 06:22:03 02/06/20 25 02/06/2025 NUA B VAGIN ITIS PLUS (VG+) neisseria gonorrhoeae, SHAYAN NEGATI VE negati ve Not Available [facility] ([facility]) [address] [facility], [place], [address], 02/07/2025 06:22:03 02/06/20 25 02/07/2025 IGP, RFX APTIM A HPV ASCU diagnosis: COMMEN T NEGAT LG FOR INTRA EPITH ELIAL LESIO N OR MALFEDERICO SHARON . Not Available [facility] ([facility]) [address] [facility], [place], [address], 02/07/2025 13:20:59 02/06/20 25 02/07/2025 IGP, RFX APTIM A HPV ASCU specimen adequacy: COMMEN T Satis facto ry for evalu ation . No endoc ervic al compo nent is ident ified . Not Available [facility] ([facility]) [address] [place], [address], 02/07/2025 13:20:59 02/06/20 25 02/07/2025 IGP, RFX APTIM A HPV ASCU clinician provided ICD10: CYNTHIA Baker Z34.9 1 Not Available [facility] ([facility]) [address] [place], [address], 02/07/2025 13:20:59 02/06/20 25 02/07/2025 IGP, RFX APTIM A HPV ASCU performed by: CYNTHIA Forman andBenjamin Mata (ASCP ) Not Available [facility] ([facility]) [address] [place], [address], 02/07/2025 13:20:59 02/06/20 25 02/07/2025 IGP, RFX APTIM A HPV ASCU . . Not Available [facility] ([facility]) [address] [place], [address], 02/07/2025 13:20:59 02/06/2002/07/2025 IGP, RFX APTIM A HPV ASCU note: CYNTHIA Baker The Pap smear is a scree luis test desig thais to aid in the detec tion of shayan ligna nt and malig nant condi tions of the uteri ne cervi x. It is not a diagn ostic proce dure and shoul d not be used as the sole means of detec ting cervi fred cance r. Both false -posi tive and false -nega tive repor ts do occur . Not Available [facility] ([facility]) [address] [place], [address], 02/07/2025 13:20:59 02/06/20 25 02/07/2025 IGP, RFX APTIM A HPV ASCU test methodology: CYNTHIA Baker This liqui d based ThinP rep(R ) pap test was scree thais with the use of an image guide ivonne lemus. Not Available [facility] ([facility]) [address] [facility], [place], [address], 02/07/2025 13:20:59 02/06/20 25 02/07/2025 IGP, RFX APTIM A HPV ASCU . COMMEN T The HPV DNA refle x crite geovanni were not met with this speci men resul t there fore, no HPV testi ng was perfo rmed. Not Available [facility] ([facility]) [address] [facility], [place], [address], 02/07/2025 13:20:59 02/06/20 25 02/10/2025 MATER NIT21 PLUS CORE gestation SINGLE TON Not Available [facility] ([facility]) [address] [facility], [place], [address], 02/10/2025 06:09:36 02/06/20 25 02/10/2025 MATER NIT21 PLUS CORE fraction 18% Not Available [facility] ([facility]) [address] [facility], [place], [address], 02/10/2025 06:09:36 02/06/20 25 02/10/2025 MATER NIT21 PLUS CORE gestational age > or = 9W: YES Not Available [facility] ([facility]) [address] [facility], [place], [address], 02/10/2025 06:09:36 02/06/20 25 02/10/2025 MATER NIT21 PLUS CORE test result NEGATI VE Not Available [facility] ([facility]) [address] [place], [address], 02/10/2025 06:09:36 02/06/20 25 02/10/2025 MATER NIT21 PLUS CORE stucco laborer comments COMMEN T This speci men showe d an expec angie repre senta tion of chrom osome 21, 18 and 13 mater ial. Clini fred corre latio n is adiel liu. Not Available [facility] ([facility]) [address] [place], [address], 02/10/2025 06:09:36 02/06/20 25 02/10/2025 MATER NIT21 PLUS CORE approved by CYNTHIA hannah MD, PhD, [facility] tor, [place] Labor atori es Not Available [facility] ([facility]) [address] [facility], [place], [address], 02/10/2025 06:09:36 02/06/20 25 02/10/2025 MATER NIT21 PLUS CORE trisomy 21 (down syndrome) NEGATI VE Not Available [facility] ([facility]) [address] [facility], [place], [address], 02/10/2025 06:09:36 02/06/2002/10/2025 MATER NIT21 PLUS CORE trisomy 18 (hardy syndrome) NEGATI VE Not Available [facility] ([facility]) [address] [facility], [place], [address], 02/10/2025 06:09:36 02/06/20 25 02/10/2025 MATER NIT21 PLUS CORE trisomy 13 (patau syndrome) NEGATI VE Not Available [facility] ([facility]) [address] [place], [address], 02/10/2025 06:09:36 02/06/2002/10/2025 MATER NIT21 PLUS CORE sex CYNTHIA Suttoni stent with Male Not Available [facility] ([facility]) [address] [place], [address], 02/10/2025 06:09:36 02/06/2002/10/2025 MATER NIT21 PLUS CORE negative predictive value NOTE The Negat lg Predi ctive Value (NPV) for triso my 21, 18, and 13 is great er than 99%. The NPV for SCA and ESS canno t be calcu lated as SCA and ESS are only repor angie when an abnor malit y is detec angie. Not Available [facility] ([facility]) [address] [facility], [place], [address], 02/10/2025 06:09:36 02/06/20 25 02/10/2025 MATER NIT21 PLUS CORE positive predictive value N/A Not Available [facility] ([facility]) [address] [facility], [place], [address], 02/10/2025 06:09:36 02/06/20 25 02/10/2025 MATER NIT21 PLUS CORE about the test COMMEN T The Mater niT(R ) 21 PLUS labor atory -deve loped test (LDT) fani zes circu latin g cell- free DNA from a mater nal blood sampl e. This test is used for scree luis purpo ses and not diagn ostic . Clini fred corre latio n is recom pam d. Valid ation data on twin pregn ancie s is limit ed and the abili ty of this test to detec t aneup loidy in highe r multi ple gesta tions has not yet been valid ated. Not Available [facility] ([facility]) [address] [facility], [place], [address], 02/10/2025 06:09:36 02/06/2002/10/2025 MATER NIT21 PLUS CORE test method COMMEN T See Notes Circu latin g cell- free DNA was purif ied from the plasm a compo nent of mater nal blood . The extra cted DNA was then conve rted into a [employer] DNA johnie ry for aneup loidy fani sis of chrom osome s 21, 18, and 13 via next gener ation seque ncing .[1] Optio nal findi ngs based on the test order inclu de sex chrom osome aneup loidy (SCA) [2], and enhan jessica seque ncing serie s (ESS) [3], which will only be repor angie on as an addit ional findi ng when an abnor malit y is detec angie. SCA testi ng inclu fern infor matio n on X and Y repre senta tion, while ESS testi ng inclu fern delet ions in selec angie regio ns (22q, 15q, 11q, 8q, 5p, 4p, 1p) and triso my of chrom osome s 16 and 22. Not Available [facility] ([facility]) [address] [facility], [place], [address], 02/10/2025 06:09:36 02/06/20 25 02/10/2025 MATER NIT21 PLUS CORE performance COMMEN T The perfo rmanc e xi cteri stics of the Mater niT(R ) 21 PLUS labor atory -deve loped test (LDT) have been deter mined in a clini fred valid ation study with pregn ant women at incre ased risk for chrom osoma l aneup loidy .[1-4 ] Not Available [facility] ([facility]) [address] [facility], [place], [address], 02/10/2025 06:09:36 02/06/20 25 02/10/2025 MATER NIT21 PLUS CORE performance characterist ics NOTE ----- ----- ----- ----- ----- ----- ----- ----- ----- ----- ----- ---- ! Sex ! Accur acy: 99.4% ! !---- ----- ----- ----- ----- ----- ----- ----- ----- ----- ----- ---! ! Regio n (assjamison nguyen d syndr matthew) ! Est. Sens# ! Est. Spec ! !---- ----- ----- ----- ----- ----- ----- ----- ----- ----- ----- ---! ! Triso my 21 (Down Syndr ome) ! 99.1% ! 99.9% ! !---- ----- ----- ----- ----- ----- ----- ----- ----- ----- ----- ---! ! Ja my 18 (Edwa rds Syndr ome) ! >99.9 % ! 99.6% ! !---- ----- ----- ----- ----- ----- ----- ----- ----- ----- ----- ---! ! Ja my 13 (Pata u Syndr ome) ! 91.7% ! 99.7% ! !---- ----- ----- ----- ----- ----- ----- ----- ----- ----- ----- ---! ! Sex Chrom osome Aneup loidi es## ! 96.2% ! 99.7% ! !---- ----- ----- ----- ----- ----- ----- ----- ----- ----- ----- ---! * As repor angie in ISCA datab ase nstd3 7 [http s://w [email or web address] [email or web address] .[email or web address] .gov/ dbvar /stud ies/n std37 / ] # Estim ated Sensi tivit y. Sensi tivit y estim ated acros s the obser kwan size distr ibuti on of each syndr ome [per ISCA datab ase nstd3 7] and acros s the range of fract ions obser kwan in routi ne clini fred NIPT. Actua l sensi tivit y can also be influ enced by other facto rs such as the size of the event , total seque nce count s, ampli ficat ion bias, or seque nce bias. ## Singl eton gesta tion only. Not Available [facility] ([facility]) [address], [place], [address], 02/10/2025 06:09:36 02/06/2002/10/2025 MATER NIT21 PLUS CORE limitations of the test COMMEN T While the resul ts of these tests are highl y relia ble, disco rdant resul ts, inclu ding inacc urate sex predi ction , may occur due to place ntal, mater nal, or mosai cism or neopl asm; vanis sharda twin; prior mater nal organ trans plant ; or other cause s. These tests are scree luis tests and not diagn ostic ; they do not repla ce the accur acy and preci yeison of prena prabha diagn osis with CVS or amnio cente sis. A patie nt with a posit lg test resul t shoul d be refer red for luiz ic couns eling and offer ed invas lg prena prabha diagn osis for confi rmati on of test resul ts.[5 ] The resul ts of this testi ng, inclu ding the benef its and limit ation s, shoul d be discu ssed with a quali fied healt hcare provi kourtney. Pregn mac manag ement decis ions, inclu ding termi natio n of the pregn mac, shoul d not be based on the resul ts of these tests alone . The healt hcare provi kourtney is respo nsibl e for the use of this infor matio n in the manag ement of their patie nt. Sex chrom osoma l aneup loidi es are not repor table for known multi ple gesta tions . A negat lg resul t does not ensur e an unaff ected pregn mac nor does it exclu de the possi bilit y of other chrom osoma l abnor malit ies or defec ts which are not a part of these tests . An uninf ormat lg resul t may be repor angie, the cause s of which may inclu de, but are not limit ed to, insuf ficie nt seque ncing cover age, noise or artif acts in the regio n, ampli ficat ion or seque ncing bias, or insuf ficie nt fract ion. These tests are not inten ded to ident susan pregn ancie s at risk for neura l tube defec ts or ventr al wall defec ts. Testi ng for whole chrom osome abnor malit ies (incl uding sex chrom osome s) and for subch romos omal abnor malit ies could lead to the poten tial disco very of both and mater nal genom ic abnor malit ies that could have major , minor , or no, clini fred signi fican ce. Evalu ating the signi fican ce of a posit lg or a non-r eport able resul t may invol ve both invas lg testi ng and addit ional studi es on the mothe r. Such inves tigat ions may lead to a diagn osis of mater nal chrom osoma l or subch romos omal abnor malit ies, which on occas ion may be assoc iated with benig n or allanig nant mater nal neopl asms. These tests may not accur ately ident susan tripl oidy, gillian jessica rearr angem ents, or the preci se locat ion of subch romos omal dupli catio ns or delet ions; these may be detec angie by prena prabha diagn osis with CVS or amnio cente sis. The abili ty to repor t resul ts may be impac angie by mater nal BMI, mater nal weigh t, mater nal syste abram lupus eryth emato marco a (SLE) and/o r by certa in pharm aceut ical agent s such as low molec ular weigh t hepar in (for examp le: Loven ox(R) , Xapar in(R) , Clexa ne(R) and Fragm in(R) ). Not Available [facility] ([facility]) [address] [facility], [place], [address], 02/10/2025 06:09:36 02/06/20 25 02/10/2025 MATER NIT21 PLUS CORE note COMMEN T See Notes [employer] is a subsi diary of Labor atory Corpo ratio n of [employer], using the brand [employer]. This test was shreya wright and its perfo rmanc e xi cteri stics deter mined by [employer]. It has not been clear ed or appro kwan by the Food and Drug Admin istra tion. This labor atory is certi fied under the Clini fred Labor atory Impro vemen t Amend ments (CLIA ) as quali fied to perfo rm high compl exity clini fred labor atory testi ng and accre dited by the [place] of Ameri can Patho logis ts (CAP) . If there is futur e clini fred need for addin g Mater niT GENOM E testi ng, this speci men will be avail able until term. [facility] sampl es will not be retai thais beyon d 60 days. [facility] patie nts will have to send a new sampl e for re-se quenc ing ([facility] Test Code: 18290 4). Not Available [facility] ([facility]) [address] [facility], [place], [address], 02/10/2025 06:09:36 02/06/2002/10/2025 MATER NIT21 PLUS CORE references COMMEN T 1. Asia CORTEZ, et al. [facility]iz Med. 2012; 14(3) :296- 305. 2. Rajani GARCIA, et al. Prena t Diag. 2013; 33(6) :591- 597. 3. Gilbert C, et al. Clin Chem. 2015 Feb;6 1(4): 608-6 16. 4. Asia CORTEZ, et al. [facility] Med. 2011; 13(11 ):913 -920. 5. ACOG/ SMFM Pract ice Bulle tin No. 226, Aug 2020. Not Available [facility] ([facility]) [address] [facility], [place], [address], 02/10/2025 06:09:36 02/06/2002/10/2025 MATER NIT21 PLUS CORE pdf . Not Available [facility] ([facility]) [address] [facility], [place], [address], 02/10/2025 06:09:36 02/06/20 25 02/06/2025 HGB FRACT IONAT ION CAS[place] DE HGB F 0.0 % 0.0-2. 0 Not Available [facility] ([facility]) [address] [facility], [place], [address], 02/17/2025 17:16:53 02/06/20 25 02/06/2025 HGB FRACT IONAT ION CASCA DE HGB A 97.3 % 96.4-9 8.8 Not Available [facility] ([facility]) [address] [place], [address], 02/17/2025 17:16:53 02/06/20 25 02/06/2025 HGB FRACT IONAT ION CASCA DE HGB A2 2.7 % 1.8-3. 2 Not Available [facility] ([facility]) [address] [facility], [place], [address], 02/17/2025 17:16:53 02/06/20 25 02/06/2025 HGB FRACT IONAT ION CAS[place] DE HGB S 0.0 % 0.0 Not Available [facility] ([facility]) [address] [facility], [place], [address], 02/17/2025 17:16:53 02/06/20 25 02/06/2025 HGB FRACT IONAT ION CASCA DE interpretati on: COMMEN T Brianda l hemog lobin prese nt; no hemog lobin varia nt or beta thala ssemi a ident ified . Note: Alpha thala ssemi a may not be detec angie by the Hgb Fract ionat ion [place] panel . If alpha thala ssemi a is suspe cted, [facility] offer s Alpha -Thal assem ia DNA Fani sis (#[id number]). Not Available [facility] ([facility]) [address] [place], [address], 02/17/2025 17:16:53 02/06/20 25 02/06/2025 ACUTE HEPAT ITIS hep A Ab, IgM NEGATI VE negati ve A negat lg anti- HAV IgM resul t sugge sts no recen t or curre nt HAV infec tion. Not Available [facility] ([facility]) [address] [facility], [place], [address], 02/17/2025 17:16:55 02/06/20 25 02/06/2025 ACUTE HEPAT ITIS HBsAg screen NEGATI VE negati ve Not Available [facility] ([facility]) [address] [facility], [place], [address], 02/17/2025 17:16:55 02/06/20 25 02/06/2025 ACUTE HEPAT ITIS hep B core Ab, IgM NEGATI VE negati ve Not Available [facility] ([facility]) [address] [place], [address], 02/17/2025 17:16:55 02/06/20 25 02/06/2025 ACUTE HEPAT ITIS HCV Ab NON REACTI VE nonrea ctive Not Available [facility] ([facility]) [address] [facility], [place], [address], 02/17/2025 17:16:55 02/06/20 25 02/06/2025 INTER PRETA TION: interpretati on: Commen t Not infec angie with HCV unles s early or acute infec tion is suspe cted (whic h may be delay ed in an immun ocomp romis ed indiv idual ), or other evide nce exist s to indic ate HCV infec tion. Not Available [facility] ([facility]) [address] [place], [address], 02/17/2025 17:16:56 02/06/20 25 02/06/2025 COMP. METAB OLIC PANEL (14) glucose 71 mg/dL 70-99 Not Available [facility] ([facility]) [address] [place], [address], 02/17/2025 17:16:57 02/06/20 25 02/06/2025 COMP. METAB OLIC PANEL (14) BUN 8 mg/dL 6-20 Not Available [facility] ([facility]) [address] [facility], [place], [address], 02/17/2025 17:16:57 02/06/20 25 02/06/2025 COMP. METAB OLIC PANEL (14) creatinine 0.48 mg/dL 0.57-1 .00 below low normal Not Available [facility] ([facility]) [address] [facility], [place], [address], 02/17/2025 17:16:57 02/06/20 25 02/06/2025 COMP. METAB OLIC PANEL (14) eGFR 131 mL/mi n/1.7 3 >59 Not Available [facility] ([facility]) [address] [place], [address], 02/17/2025 17:16:57 02/06/20 25 02/06/2025 COMP. METAB OLIC PANEL (14) BUN/creatini ne ratio 17 9-23 Not Available [facility] ([facility]) [address] [facility], [place], [address], 02/17/2025 17:16:57 02/06/20 25 02/06/2025 COMP. METAB OLIC PANEL (14) sodium 134 mmol/ L 134-14 4 Not Available [facility] ([facility]) [address] [place], [address], 02/17/2025 17:16:57 02/06/20 25 02/06/2025 COMP. METAB OLIC PANEL (14) potassium 4.0 mmol/ L 3.5-5. 2 Not Available [facility] ([facility]) [address] [place], [address], 02/17/2025 17:16:57 02/06/20 25 02/06/2025 COMP. METAB OLIC PANEL (14) chloride 101 mmol/ L 96-106 Not Available [facility] ([facility]) [address] [place], [address], 02/17/2025 17:16:57 02/06/20 25 02/06/2025 COMP. METAB OLIC PANEL (14) carbon dioxide, total 20 mmol/ L 20-29 Not Available [facility] ([facility]) [address] [place], [address], 02/17/2025 17:16:57 02/06/20 25 02/06/2025 COMP. METAB OLIC PANEL (14) calcium 8.9 mg/dL 8.7-10 .2 Not Available [facility] ([facility]) [address] [place], [address], 02/17/2025 17:16:57 02/06/20 25 02/06/2025 COMP. METAB OLIC PANEL (14) protein, total 6.7 g/dL 6.0-8. 5 Not Available [facility] ([facility]) [address] [place], [address], 02/17/2025 17:16:57 02/06/20 25 02/06/2025 COMP. METAB OLIC PANEL (14) albumin 4.1 g/dL 4.0-5. 0 Not Available [facility] ([facility]) [address] [place], [address], 02/17/2025 17:16:57 02/06/20 25 02/06/2025 COMP. METAB OLIC PANEL (14) globulin, total 2.6 g/dL 1.5-4. 5 Not Available [facility] ([facility]) [address] [place], [address], 02/17/2025 17:16:57 02/06/20 25 02/06/2025 COMP. METAB OLIC PANEL (14) bilirubin, total 0.3 mg/dL 0.0-1. 2 Not Available [facility] ([facility]) [address] [place], [address], 02/17/2025 17:16:57 02/06/20 25 02/06/2025 COMP. METAB OLIC PANEL (14) alkaline phosphatase 74 IU/L 44-121 Not Available [facility] ([facility]) [address] [place], [address], 02/17/2025 17:16:57 02/06/20 25 02/06/2025 COMP. METAB OLIC PANEL (14) AST (SGOT) 14 IU/L 0-40 Not Available [facility] ([facility]) [address] [place], [address], 02/17/2025 17:16:57 02/06/20 25 02/06/2025 COMP. METAB OLIC PANEL (14) ALT (SGPT) 16 IU/L 0-32 Not Available [facility] ([facility]) [address] [place], [address], 02/17/2025 17:16:57 02/06/20 25 02/17/2025 CYSTI C FIBRO SIS, 97 VARIA NTS ethnicity COMMEN T Not Provi ded Not Available [facility] ([facility]) [address] [place], [address], 02/17/2025 17:16:58 02/06/20 25 02/17/2025 CYSTI C FIBRO SIS, 97 VARIA NTS specimen type COMMEN T Whole Blood Not Available [facility] ([facility]) [address] [place], [address], 02/17/2025 17:16:58 02/06/20 25 02/17/2025 CYSTI C FIBRO SIS, 97 VARIA NTS indication COMMEN T Vilma er Test / Scree luis Not Available [facility] ([facility]) [address] [place], [address], 02/17/2025 17:16:58 02/06/20 25 02/17/2025 CYSTI C FIBRO SIS, 97 VARIA NTS result: COMMEN T NEGAT LG Not Available [facility] ([facility]) [address] [facility], [place], [address], 02/17/2025 17:16:58 02/06/20 25 02/17/2025 CYSTI C FIBRO SIS, 97 VARIA NTS interpretati on COMMEN T Negat lg Resul ts Disor ders (Gene ) Resul t Inter preta tion Cysti c fibro sis NEGAT LG This resul t reduc es, (CFTR ) but does not NM_00 0492. 4 elimi alan, the risk to be a vilma er. Risk: At reduc ed risk for an affec angie pregn mac. For ethni c-spe cific risk nikki ions see Infor colton n Table . Not Available [facility] ([facility]) [address] [facility], [place], [address], 02/17/2025 17:16:58 02/06/20 25 02/17/2025 CYSTI C FIBRO SIS, 97 VARIA NTS recommendati ons COMMEN T If the above resul t is posit lg, luiz ic couns eling is recom pam d to discu ss the poten tial clini fred and/o r repro ducti ve impli catio ns, as well as recom menda tions for testi ng famil y membe rs and, when appli cable , this indiv idual 's partn er. Luiz ic couns eliginger servi brittany are avail able. To acces s [facility] Luiz ic Couns laurence jolly e visit https ://wo regulo [place] .[facility] orp.c om/ge netic -coun tere [place] or call (734) -[facility] ([phone]). Not Available [facility] ([facility]) [address] [facility], [place], [address], 02/17/2025 17:16:58 02/06/20 25 02/17/2025 CYSTI C FIBRO SIS, 97 VARIA NTS additional clinicalinfo rmation COMMEN T Cysti c fibro sis (CF) is an autos omal reces sive disor kourtney with varia ble sever ity and age at onset . Signs and sympt oms of class ic CF may inclu de eleva angie sweat chlor christian level s, progr essiv e lung disea se, pancr eatic insuf ficie ncy, and male infer tilit y. Sympt oms of mild CF may inclu de pancr eatic suffi cienc y. Sympt oms of CFTR- relat ed disor ders may inclu de pancr eatit is, bronc hiect asis, and isola angie male infer tilit y due to conge nital absen ce of the vas defer ens (CBAV D). Treat ment is dieta ry and suppo rtive . Genot ype-t arget ed thera pies may be avail able for some indiv idual s. In sever alberto affec angie indiv idual s, lung trans plant ation may be indic ated. (PMID :2030 1428) . Not Available [facility] ([facility]) [address] [facility], [place], [address], 02/17/2025 17:16:58 02/06/20 25 02/17/2025 CYSTI C FIBRO SIS, 97 VARIA NTS comments COMMEN T This inter preta tion is based on the clini fred infor matio n provi ded and the curre nt under stand ing of the Dazo ular luiz ics of the disor kourtney(s ) teste d. Infor matio n about the disor kourtney(s ) teste d is avail able at https ://wo [facility] ealt [facility] orp.c om. Not Available [facility] ([facility]) [address] [facility], [place], [address], 02/17/2025 17:16:58 02/06/20 25 02/17/2025 CYSTI C FIBRO SIS, 97 VARIA NTS methods/limi tations COMMEN T Next- gener ation Seque ncing (NGS) : Genom ic regio ns of inter est in the CFTR gene are selec angie using the [employer] ience (R) hybri dizat ion captu re metho d and seque nced via the Illum deborah(R ) NGS platf orm. Seque ncing reads are align ed to the human genom e refer ence GRCh3 7/hg1 9 build . Regio ns of inter est inclu de genom ic regio ns encom passi ng targe angie varia nts. Fani tical sensi tivit y is estim ated to be >99% for singl e nucle otide varia nts and small inser tions /aissatou tions . Varia nt detec tion is perfo rmed by ALBARO Ortiz [facility] [employer] and in-ho use algor ithms . Confi rmato ry testi ng is done by Sange r seque ncing . Varia nts are speci fied using the numbe ring and nomen clatu re recom pam d by the Human Genom e Varia tion Socie ty (HGVS , http: //www .hgvs .org/ ). Varia nt class ifica tion and confi rmati on are consi stent with ACMG stand ards and guide lines (Rich ards, PMID: [id number]; Adarsh, PMID: 25018 774). Fani sis is restr icted to 97 targe angie CF varia nts, liste d below . c.54- 5940_ 273+1 0250d el210 80, c.178 G>T (p.Gl u60*) , c.223 C> T (p.Ar g75*) , c.254 G>A (p.Gl y85Gl u), c.262 _263d elTT (p.Le u88Il efs*2 2), c.273 +1G>A , c.273 +3A>C , c.274 -1G>A , c.274 G>T (p.Gl u92*) , c.313 Meri (p.Il e105S erfs* 2), c.325 _327d elins G (p.Ty r109G lyfs* 4), c.349 C>T (p.Ar g117C ys), c.350 G>A (p.Ar g117H is), c.366 T>A (p.Ty r122* ), c.442 Meri (p.Il e148L eufs* 5), c.489 +1G>T , c.531 delT (p.Il e177M etfs* 12), c.532 G>A (p.Gl y178A rg), c.579 +1G&g t;T, c.579 +5G>A , c.580 -1G>T , c.617 T>G (p.Le u206T rp), c.803 Meri (p.As n268I lefs* 17), c.805 _806d elAT (p.Il e269P rofs* 4), c.935 _937d elTCT (p.Ph e312d el), c.948 delT (p.Ph e316L eufs* 12), c.988 G>T (p.Gl y330* ), c.100 0C>T (p.Ar g334T rp), c.101 3C>T (p.Th r338I le), c.104 0G>A (p.Ar g347H is), c.104 0G>C (p.Ar g347P ro), c.105 5G>A (p.Ar g352G ln), c.[10 75C>A ;1079 C>A] (p.[G ln359 Vero;T hr360 Vero]) , c.115 5_115 6dupT A (p.As n386I lefs* 3), c.136 4C>A (p.Al a455G miki), c.143 8G>T (p.Gl y480C ys), c.147 7C>T (p.Gl n493* ), c.151 9_152 1delA TC (p.Il e507d el), c.152 1_152 3delC TT (p.Ph e508d el), c.154 5_154 6delT A (p.Ty r515* ), c.155 8G>T (p.Va l520P he), c.157 2C>A (p.Cy s524* ), c.158 5-1G> A, c.162 4G>T (p.Gl y542* ), c.164 6G>A (p.Se r549A sn), c.164 7T>G (p.Se r549A rg), c.165 2G>A (p.Gl y551A sp), c.165 4C>T (p.Gl n552* ), c.165 7C>T (p.Ar g553* ), c.167 5G>A (p.Al a559T hr), c.167 9G>C (p.Ar g560T hr), c.168 0-1G> A, c.172 1C>A (p.Pr o574H is), c.176 6+1G> A, c.176 6+5G> T, c.182 0_190 3del8 4 (p.Me t607_ Gln63 4del) , c.191 1delG (p.Gl n637H isfs* 26), c.192 3_193 1deli nsA (p.Se r641A rgfs* 5), c.197 3_198 5deli nsAGA AA (p.Ar g658L ysfs* 4), c.197 6delA (p.As n659I lefs* 4), c.201 2delT (p.Le u671* ), c.205 1_205 2deli nsG (p.Ly s684S erfs* 38), c.205 2delA (p.Ly s684A snfs* 38), c.205 2dupA (p.Gl n685T hrfs* 4), c.212 5C>T (p.Ar g709* ), c.212 8A>T (p.Ly s710* ), c.217 5dupA (p.Gl u726A rgfs* 4), c.229 0C>T (p.Ar g764* ), c.265 7+5G> A, c.266 8C>T (p.Gl n890* ), c.273 7_273 8insG (p.Ty r913* ), c.298 8G>A (p.Gl n996= ), c.298 8+1G> A, c.303 9delC (p.Ty r1014 Thrfs *9), c.306 7_307 2delA TAGTG (p.Il e1023 _Val1 024de l), c.319 6C>T (p.Ar g1066 Cys), c.326 6G>A (p.Tr p1089 *), c.327 6C>A (p.Ty r1092 *), c.327 6C>G (p.Ty r1092 *), c.330 2T>A (p.Me t1101 Vero), c.345 4G>C (p.As p1152 His), c.347 2C>T (p.Ar g1158 *), c.348 4C>T (p.Ar g1162 *), c.352 8delC (p.Ly s1177 Serfs *15), c.353 6_353 9delC CAA (p.Th r1179 Asnfs *12), c.358 7C>G (p.Se r1196 *), c.361 1G>A (p.Tr p1204 *), c.365 9delC (p.Th r1220 Lysfs *8), c.371 2C>T (p.Gl n1238 *), c.371 8-247 7C>T, c.374 4delA (p.Ly s1250 Argfs *9), c.375 2G>A (p.Se r1251 Asn), c.376 4C>A (p.Se r1255 *), c.377 3dupT (p.Le u1258 Phefs *7), c.384 6G>A (p.Tr p1282 *), c.388 9dupT (p.Se r1297 Phefs *5), c.390 9C>G (p.As n1303 Vero) Limit ation s: Techn ologi es used do not detec t germl ine mosai cism and do not rule out the prese nce of large chrom osoma l aberr ation s inclu ding rearr angem ents and gene fusio ns, or varia nts in regio ns or genes not inclu ded in this test, or possi ble inter /intr ageni c inter actio ns betwe en varia nts, or repea t expan sions . Varia nt class ifica tion and/o r inter preta tion may jimenez e over time if more infor matio n becom es avail able. False posit lg or false negat lg resul ts may occur for reaso ns that inclu de: rare luiz ic varia nts, sex chrom osome abnor malit ies, pseud ogene inter feren ce, blood trans fusio ns, bone marro w trans plant ation , somat ic or tissu e-spe cific mosai cism, misla beled sampl es, or barrington eous repre senta tion of famil y relat ionsh ips. This test was devel oped and its perfo rmanc e xi cteri stics deter mined by [employer]. It has not been clear ed or appro kwan by the Food and Drug Admin istra tion. Not Available [facility] ([facility]) [address] [facility], [place], [address], 02/17/2025 17:16:58 02/06/2002/17/2025 CYSTI C FIBRO SIS, 97 VARIA NTS information table COMMEN T Cysti c fibro sis, 97 varia nts, risk reduc tions for indiv idual s with no famil y histo ry Popul ation Detec tion rate Pre-t est Post- test vilma er vilma er risk risk with negat lg resul t Ashke nazi 97% 1 in 24 1 in 767 Jewis h 55% 1 in 94 1 in 208 Ameri can Black 81% 1 in 61 1 in 316 Hispa silvia 78% 1 in 58 1 in 260 White 93% 1 in 25 1 in 343 Mixed or For couns eling other ethni c purpo ses, backg round consi kourtney using the ethni c backg round with the most conse rvati ve risk estim ates. Not Available [facility] ([facility]) [address] [facility], [place], [address], 02/17/2025 17:16:58 02/06/20 25 02/17/2025 CYSTI C FIBRO SIS, 97 VARIA NTS references COMMEN T Luis F diez JL, Rohith ry C, Cutmelodie ng GR et al. CFTR varia nt testi ng: a techn ical stand carol of the [facility] ge of Medic al Luiz ics and Genom ics (AC ). Luiz Med 22, 5519 (2020 ). PMID: [id number] Brooke T, Toñito shaver SG, Akira whitehead BA, et al. Cysti c Fibro sis and Conge nital Absen ce of the Vas Defer ens. 2000 [Upda angie 2016Dec 15]. In: Jerman MP, Geraldo loco HH, Danyell RA, et al., wilton rs. GeneR mark celaya(R) [Inte rnet] . PMID: [id number] Not Available [facility] ([facility]) [address] [place], [address], 02/17/2025 17:16:58 02/06/20 25 02/17/2025 CYSTI C FIBRO SIS, 97 VARIA NTS director review/relea se COMMEN T [place] nent Type Perfo rmed At Labor atory Direc tor Techn ical Labor atory Anjen Gabbi , compo nent, Corpo ratio n of , PhD proce [facility], [address] [place], [address] Techn ical Labor atory Anjen Radhan , compo nent, Corpo ratio n of , PhD fani [facility], [address] [place], [address] Profe mikie al Labor atory Anjen Chenn , compo nent Corpo ratio n of , PhD [facility], [address] [place], [address] Elect navjot gardner relea sed by Dashawn ortega, PhD, [facility] Not Available [facility] ([facility]) [address] [place], [address], 02/17/2025 17:16:58 02/06/20 25 02/17/2025 CYSTI C FIBRO SIS, 97 VARIA NTS pdf . Not Available [facility] ([facility]) [address] [facility], [place], [address], 02/17/2025 17:16:58 02/06/20 25 02/05/2025 [id number] 2 5 DRUG- SCR drug screen comment: COMMEN T This fani sis is perfo rmed by immun oassa y. Posit lg findi ngs are uncon firme d fani tical test resul ts; if resul ts do not suppo rt expec angie clini fred findi ng, confi rmati on by an alter alan metho dolog y is recom pam raimundo Patie nt metab olic varia bles, speci fic drug chemi stry, and speci men xi cteri stics can affec t test outco me. Techn ical consu ltati on is avail able at [facility] [email or web address], or call toll free [phone]. Not Available [facility] ([facility]) [address] [facility], [place], [address], 02/17/2025 17:17:00 02/06/20 25 02/06/2025 [id number] 2 5 DRUG- SCR amphetamines , urine NEGATI VE NG/mL cutoff =1000 Amphe tamin e test inclu fern Amphe tamin e and Metha mphet amine . Not Available [facility] ([facility]) [address] [facility], [place], [address], 02/17/2025 17:17:00 02/06/20 25 02/06/2025 [id number] 2 5 DRUG- SCR cannabinoid POSITI VE NG/mL cutoff =50 abnormal Not Available [facility] ([facility]) [address] [facility], [place], [address], 02/17/2025 17:17:00 02/06/20 25 02/06/2025 85628 2 5 DRUG- SCR cocaine (metab.) NEGATI VE NG/mL cutoff =300 Not Available [facility] ([facility]) [address] [place], [address], 02/17/2025 17:17:00 02/06/20 25 02/06/2025 91993 2 5 DRUG- SCR opiates NEGATI VE NG/mL cutoff =300 Opiat e test inclu fern Codei ne, Morph ine, Gore morph one, Gore codon e. Not Available [facility] ([facility]) [address] [place], [address], 02/17/2025 17:17:00 02/06/20 25 02/06/2025 68342 2 5 DRUG- SCR phencyclidin e NEGATI VE NG/mL cutoff =25 Not Available [facility] ([facility]) [address] [place], [address], 02/17/2025 17:17:00 02/06/20 25 02/06/2025 HEMOG LOBIN A1C hemoglobin A1C 5.3 % 4.8-5. 6 Predi abete s: 5.7 - 6.4 Diabe carmen: >6.4 Glyce abram contr ol for adult s with diabe carmen: <7.0 Not Available [facility] ([facility]) [address] [place], [address], 02/17/2025 17:17:01 02/06/20 25 02/06/2025 CBC WITH DIFFE RENTI AL/PL ATELE T WBC 8.5 x10e3 /uL 3.4-10 .8 Not Available [facility] ([facility]) [address] [place], [address], 02/17/2025 17:17:03 02/06/20 25 02/06/2025 CBC WITH DIFFE RENTI AL/PL ATELE T RBC 4.47 x10e6 /uL 3.77-5 .28 Not Available [facility] ([facility]) [address] [place], [address], 02/17/2025 17:17:03 02/06/20 25 02/06/2025 CBC WITH DIFFE RENTI AL/PL ATELE T hemoglobin 12.8 g/dL 11.1-1 5.9 Not Available [facility] ([facility]) [address] [facility], [place], [address], 02/17/2025 17:17:03 02/06/20 25 02/06/2025 CBC WITH DIFFE RENTI AL/PL ATELE T hematocrit 39.9 % 34.0-4 6.6 Not Available [facility] ([facility]) [address] [place], [address], 02/17/2025 17:17:03 02/06/20 25 02/06/2025 CBC WITH DIFFE RENTI AL/PL ATELE T MCV 89 fL 79-97 Not Available [facility] ([facility]) [address] [place], [address], 02/17/2025 17:17:03 02/06/20 25 02/06/2025 CBC WITH DIFFE RENTI AL/PL ATELE T MCH 28.6 pg 26.6-3 3.0 Not Available [facility] ([facility]) [address] [place], [address], 02/17/2025 17:17:03 02/06/20 25 02/06/2025 CBC WITH DIFFE RENTI AL/PL ATELE T MCHC 32.1 g/dL 31.5-3 5.7 Not Available [facility] ([facility]) [address] [place], [address], 02/17/2025 17:17:03 02/06/20 25 02/06/2025 CBC WITH DIFFE RENTI AL/PL ATELE T RDW 13.3 % 11.7-1 5.4 Not Available [facility] ([facility]) [address] [place], [address], 02/17/2025 17:17:03 02/06/20 25 02/06/2025 CBC WITH DIFFE RENTI AL/PL ATELE T platelets 329 x10e3 /uL 150-45 0 Not Available [facility] ([facility]) [address] [facility], [place], [address], 02/17/2025 17:17:03 02/06/20 25 02/06/2025 CBC WITH DIFFE RENTI AL/PL ATELE T neutrophils 61 % notest ab. Not Available [facility] ([facility]) [address] [facility], [place], [address], 02/17/2025 17:17:03 02/06/20 25 02/06/2025 CBC WITH DIFFE RENTI AL/PL ATELE T lymphs 28 % notest ab. Not Available [facility] ([facility]) [address] [facility], [place], [address], 02/17/2025 17:17:03 02/06/20 25 02/06/2025 CBC WITH DIFFE RENTI AL/PL ATELE T monocytes 9 % notest ab. Not Available [facility] ([facility]) [address] [facility], [place], [address], 02/17/2025 17:17:03 02/06/20 25 02/06/2025 CBC WITH DIFFE RENTI AL/PL ATELE T eos 1 % notest ab. Not Available [facility] ([facility]) [address] [place], [address], 02/17/2025 17:17:03 02/06/20 25 02/06/2025 CBC WITH DIFFE RENTI AL/PL ATELE T basos 0 % notest ab. Not Available [facility] ([facility]) [address] [facility], [place], [address], 02/17/2025 17:17:03 02/06/20 25 02/06/2025 CBC WITH DIFFE RENTI AL/PL ATELE T neutrophils (absolute) 5.1 x10e3 /uL 1.4-7. 0 Not Available [facility] ([facility]) [address] [facility], [place], [address], 02/17/2025 17:17:03 02/06/20 25 02/06/2025 CBC WITH DIFFE RENTI AL/PL ATELE T lymphs (absolute) 2.4 x10e3 /uL 0.7-3. 1 Not Available [facility] ([facility]) [address] [place], [address], 02/17/2025 17:17:03 02/06/20 25 02/06/2025 CBC WITH DIFFE RENTI AL/PL ATELE T monocytes(ab solute) 0.8 x10e3 /uL 0.1-0. 9 Not Available [facility] ([facility]) [address] [facility], [place], [address], 02/17/2025 17:17:03 02/06/20 25 02/06/2025 CBC WITH DIFFE RENTI AL/PL ATELE T eos (absolute) 0.1 x10e3 /uL 0.0-0. 4 Not Available [facility] ([facility]) [address] [facility], [place], [address], 02/17/2025 17:17:03 02/06/20 25 02/06/2025 CBC WITH DIFFE RENTI AL/PL ATELE T baso (absolute) 0.0 x10e3 /uL 0.0-0. 2 Not Available [facility] ([facility]) [address] [place], [address], 02/17/2025 17:17:03 02/06/20 25 02/06/2025 CBC WITH DIFFE RENTI AL/PL ATELE T immature granulocytes 1 % notest ab. Not Available [facility] ([facility]) [address] [place], [address], 02/17/2025 17:17:03 02/06/20 25 02/06/2025 CBC WITH DIFFE RENTI AL/PL ATELE T immature grans (abs) 0.0 x10e3 /uL 0.0-0. 1 Not Available [facility] ([facility]) [address] [place], [address], 02/17/2025 17:17:03 02/06/20 25 02/06/2025 ABO GROUP ING AND RHO(D ) TYPIN G ABO grouping B Not Available [facility] ([facility]) [address] [place], [address], 02/17/2025 17:17:04 02/06/20 25 02/06/2025 ABO GROUP ING AND RHO(D ) TYPIN G Rh factor POSITI VE Pleas e note: Prior recor ds for this patie nt's ABO / Rh type are not avail able for addit ional verif icati on. Not Available [facility] ([facility]) [address] [facility], [place], [address], 02/17/2025 17:17:04 02/06/20 25 02/06/2025 RPR RPR NON REACTI VE nonrea ctive Not Available [facility] ([facility]) [address] [place], [address], 02/17/2025 17:17:06 02/06/20 25 02/06/2025 RUBEL LA ANTIB ODIES , IGG rubella antibodies, IgG 2.96 index immune >0.99 Non-i mmune <0.90 Equiv ocal 0.90 - 0.99 Immun e >0.99 Not Available [facility] ([facility]) [address] [place], [address], 02/17/2025 17:17:07 02/06/20 25 02/06/2025 HIV AB/P2 4 AG WITH REFLE X HIV Ab/P24 Ag screen NON REACTI VE nonrea ctive HIV-1 /HIV- 2 antib odies and HIV-1 p24 antig en were NOT detec angie. There is no labor atory evide nce of HIV infec tion. HIV Negat lg Not Available [facility] ([facility]) [address] [facility], [place], [address], 02/17/2025 17:17:08 02/06/20 25 02/06/2025 VARIC NORMAN- ZOSTE R V AB, IGG varicella zoster IgG NON REACTI VE nonrea ctive Ple ase note refer ence inter deric jimenez e A React lg resul t is consi dered evide nce of immun ity to VZV. React lg indic ates that VZV IgG was detec angie consi stent with previ ous infec tion and/o r vacci natio n. A Non React lg resul t indic ates that VZV IgG was not detec angie sugge sting that immun ity has not been acqui red. Not Available [facility] ([facility]) [address] [facility], [place], [address], 02/17/2025 17:17:10 03/05/20 25 03/05/2025 urina lysis , dipst ick Leukocytes Negati ve Not Available In-Office Order Internal Use Only DO Not Attach Compendium DO Not Attach Compendium, Do Not Delete/merge, 03/05/2025 15:54:05 03/05/20 25 03/05/2025 urina lysis , dipst ick Nitrite negati ve Not Available In-Office Order Internal Use Only DO Not Attach Compendium DO Not Attach Compendium, Do Not Delete/merge, 03/05/2025 15:54:05 03/05/20 25 03/05/2025 urina lysis , dipst ick Urobilinogen .2 Not Available In-Of fice Order Internal Use Only DO Not Attach Compendium DO Not Attach Compendium, Do Not Delete/merge, 03/05/2025 15:54:05 03/05/20 25 03/05/2025 urina lysis , dipst ick Protein Negati ve Not Available In-Office Order Internal Use Only DO Not Attach Compendium DO Not Attach Compendium, Do Not Delete/merge, 03/05/2025 15:54:05 03/05/2003/05/2025 urina lysis , dipst ick pH 6.5 Not Available In-Office Order Internal Use Only DO Not Attach Compendium DO Not Attach Compendium, Do Not Delete/merge, 03/05/2025 15:54:05 03/05/20 25 03/05/2025 urina lysis , dipst ick Blood Negati ve Not Available In-Office Order Internal Use Only DO Not Attach Compendium DO Not Attach Compendium, Do Not Delete/merge, 03/05/2025 15:54:05 03/05/20 25 03/05/2025 urina lysis , dipst ick Specific [place] 1.010 Not Available In-Off ice Order Internal Use Only DO Not Attach Compendium DO Not Attach Compendium, Do Not Delete/merge, 03/05/2025 15:54:05 03/05/20 25 03/05/2025 urina lysis , dipst ick Ketone Negati ve Not Available In-Office Order Internal Use Only DO Not Attach Compendium DO Not Attach Compendium, Do Not Delete/merge, 03/05/2025 15:54:05 03/05/20 25 03/05/2025 urina lysis , dipst ick Bilirubin Negati ve Not Available In-Office Order Internal Use Only DO Not Attach Compendium DO Not Attach Compendium, Do Not Delete/merge, 03/05/2025 15:54:05 03/05/20 25 03/05/2025 urina lysis , dipst ick Glucose Negati ve Not Available In-Office Order Internal Use Only DO Not Attach Compendium DO Not Attach Compendium, Do Not Delete/merge, 03/05/2025 15:54:05 03/05/20 25 03/05/2025 urina lysis , dipst ick Appearance Clear Not Available In-Offi ce Order Internal Use Only DO Not Attach Compendium DO Not Attach Compendium, Do Not Delete/merge, 03/05/2025 15:54:05 03/05/20 25 03/05/2025 urina lysis , dipst ick Color Pale Yellow Not Available In-Office Order Internal Use Only DO Not Attach Compendium DO Not Attach Compendium, Do Not Delete/merge, [id number] 03/05/2025 15:54:05 01/29/20 25 01/27/2025 US, obste tric, 1st trime ster No observ ation record ed. [facility] [address], [place], [address], 02/05/2025 14:56:58 Result Notes None recorded. Problems Name Problem SNOMED Code Status Onset Date Resolution Date Notes Provider Name and Address Organization Details Recorded Time Gastroes ophageal reflux disease 041097294 Completed Taisha Fernandez [place] null, [place] - [facility] 1 11:44:16 Varicell a vaccinat ion Completed YANN DE LOS SANTOS Attn: iMnoo g,[address] [facility], [place], [address], [place] [facility] 0 17:35:43 Abnormal progeste dash 668271636 Completed Adil[place] Blank [place] [facility] 6 16:45:59 Vitamin D deficien cy 95425691 Active Adil[place] Blank [place] [facility] 6 16:45:59 Vitamin D deficien cy 85965951 Completed [place] [facility] 6 16:45:59 Varicell a 34238208 Completed 09/07/2018 Harvinder Aren[place] [facility] 8 07:49:34 Varicell a 94967488 Completed [place] [facility] 6 16:45:59 Gastroes ophageal reflux disease 518330314 Active Taisha Fernandez [place] [facility] 1 11:44:16 Gastroes ophageal reflux disease 789771621 Completed [place] [facility] 6 16:45:59 Pain in throat 692929403 Completed 02/16/2017 Harvinder jack[place] [facility] 7 11:49:49 Pain in throat 810869612 Completed [place] [facility] 6 16:45:59 Sinusiti s 06913233 Active [place] [facility] 6 16:45:59 Sinusiti s 58919126 Completed [place] [facility] 6 16:45:59 Upper respirat ory infectio n 37129920 Completed 10/07/2020 Harvinder jack [place] [facility] 0 11:47:37 Upper respirat ory infectio n 48676723 Completed [place] [facility] 6 16:45:59 Postpart state 29571446 Completed 01/19/2017 Harvinder jack [place] [facility] 7 12:17:04 Varicell a vaccinat ion Completed varicell a non immune needs vaccine [facility] Adilene jack[place] [facility] 7 10:18:30 Varicell a vaccinat ion Completed 03/31/2020 Harvinder jack [place] [facility] 0 09:48:34 Varicell a 70026659 Completed [place] [facility] 7 10:18:30 Abnormal progeste dash 735633154 Completed 2016 low at initial ob labs Taisha Fern[place] [facility] 1 11:44:15 Abnormal progeste dash 790352069 Active 2016 low at initial ob labs Taisha Fern[place] [facility] 1 11:44:15 Abnormal progeste dash 720096126 Completed 2016 low at initial ob labs [place]ene Abhay [place]ero[place] [facility] 7 10:18:31 Pregnanc y 81544013 Completed 201602/16/2017 Alexa Figuero[place] [facility] 5 15:06:02 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 Completed 2016 Taisha Fern[place] [facility] 1 11:44:15 Group B Streptoc occus carrier [id number] 03 Active 2016 Taisha Fern[place] [facility] 1 11:44:16 Group B Streptoc occus carrier [id number] 03 Completed 2016 Adil[place] Blank [place] [facility] 7 10:18:30 Varicell a immune 710362955 Completed 201601/25/2017 Harvinder [place] [facility] 7 09:33:40 Umbilica l hernia 229108715 Completed 2016 Taisha Fern[place] [facility] 1 11:44:16 Umbilica l hernia 719501522 Active 2016 Taisha Fern[place] [facility] 1 11:44:16 Obesity 314744074 Completed 2016 Taisha Fern[place] [facility] 1 11:44:16 Obesity 699982478 Active 2016 Taisha Fern[place] [facility] 1 11:44:16 Anemia 226239103 Active 2017 Taisha Fern[place] [facility] 11:44:15 Anemia 883776158 Completed 2017 Taisha Fern[place] [facility] 1 11:44:15 Pregnanc y 66646104 Completed 201903/18/2020 Alexa Figuero[place] [facility] 5 15:06:02 Genital herpes simplex 78389240 Active 2019 Taisha Fern[place] [facility] 1 11:44:15 Genital herpes simplex 79077482 Completed 2019 Taisha Fern[place] [facility] 1 11:44:15 Requires varicell a vaccinat ion 891369604 Active 2019 Taisha Fern[place] [facility] 1 11:44:16 Requires varicell a vaccinat ion 385830972 Completed 2019 Taisha Fernandez MA null, [place] - [facility] 1 11:44:16 Steriliz ation requeste d 055500570 Completed 2019 pt no longer desires tubal Harvinder jack, [place] - [facility] 0 15:15:50 Steriliz ation requeste d 993780525 Completed 201910/07/2020 pt no longer desires tubal Harvinder jack, [place] - [facility] 0 11:47:33 Pregnanc y 17513658 Active 2024 Alexa Figueroa MA null, [facility] 5 15:06:01 Problem Notes None recorded. Procedures Surgical History Date Name Laterality Status Provider Name and Address Organization Details Recorded Time 3 Date of Last Pap Smear completed Alicia Mortensen MA [facility] 10/31/2023 09:53:53 2 Control Implant Removal completed YANN DODSON Attn: Accounting,[address] [place], [address], [facility] 10/13/2022 09:19:33 1 Control Implant Insertion completed Harvinder Arenas [facility] 11/19/2020 10:51:21 8 Hernia Repair completed Alicia Mortensen MA [facility] 03/18/2020 15:05:10 Imaging Results None recorded. Procedure Notes None recorded. Medical Equipment None Reported. Allergies Allergen ID Allergen Name Allergen Category Reaction Reaction Severity Criticality Documentation Date Start Date Code Code System Note Provider Name and Address Organization Details Recorded Time 457804 acyclovir medicatio n hives moderate Not available 08/27/2020 281 RxNorm canno t take 800mg dose of ayclo vir Taisha Fernandez MA null, [place] - [facility] 0 15:51:02 Medications Name Sig Start Date Stop Date [...] completed Not Available Not Available Not Available 02/05 completed Not Available Not Available Not Available doxylamine 10 mg-pyridoxi ne (vit [...] Not Available 28 mg iron-800 mcg tablet TAKE 1 TABLET BY MOUTH DAILY active Not Available Not Available No t Available calcium 600 mg (as carbonate)- vitamin [...] completed Not Available Not Available Not Available Se- 19 29 mg iron-1 mg tablet TK 1 T PO QD 10/13 completed Not Available Not Available Not Available Vitals Date Recorded Body height Body mass index (BMI) Body weight Heart rate Oxygen saturation Oxygen saturation in Arterial blood by Pulse oximetry Systolic And Diastolic Provider Name and Address Organization Details Last Updated DateTime 5 162.56 cm 37.8 kg/m2 60149.3 2 g 77 /min 99 % 99 % 124/78 mm[Hg] Sondra Kraus MA [facility] 5 14:46:13 Date Recorded Body height Body mass index (BMI) Body weight Body temperature Oxygen saturation Oxygen saturation in Arterial blood by Pulse oximetry Heart rate Systolic And Diastolic Provider Name and Address Organization Details Last Updated DateTime 5 162.56 cm 37.9 kg/m2 757614. 55 g 98.8 [degF] 98 % 98 % 96 /min 124/64 mm[Hg] Alexa Figueroa MA [facility] 5 15:05:56 Date Recorded Body height Body mass index (BMI) Body weight Body temperature Oxygen saturation Oxygen saturation in Arterial blood by Pulse oximetry Heart rate Systolic And Diastolic Provider Name and Address Organization Details Last Updated DateTime 5 162.56 cm 37.6 kg/m2 87045.0 9 g 98.4 [degF] 99 % 99 % 72 /min 122/64 mm[Hg] Alexa Figueroa MA [facility] 5 14:34:41 Date Recorded Body height Body mass index (BMI) Body weight Body temperature Oxygen saturation Oxygen saturation in Arterial blood by Pulse oximetry Heart rate Systolic And Diastolic Provider Name and Address Organization Details Last Updated DateTime 5 162.56 cm 38.4 kg/m2 375791. 25 g 99 [degF] 98 % 98 % 60 /min 122/68 mm[Hg] Alexa Figueroa MA [facility] 5 15:51:48 Date Recorded Body height Body mass index (BMI) Body weight Systolic And Diastolic Provider Name and Address Organization Details Last Updated DateTime 10/31/2023 162.56 cm 38.1 kg/m2 584889.51 g 122/68 mm[Hg] Alicia Mortensen MA [facility] 10/31/2023 10:01:37 Social History Question Answer Notes LastModified by Organization Details LastModified Time Tobacco Smoking Status Never Smoker Carmen Sparks MA null, [facility] 02/23/2015 16:36:00 Do You Have An Advance Directive? No Information not available 11/17/2015 Is Your Home Air Conditioned? Yes Information not available 12/23/2020 If You Are , What Was Your Level Of Alcohol Consumption Prior To ? None Information not available 11/17/2015 How Many Years Have You Consumed Alcohol? 4 Information not available 12/23/2020 Is Anesthesia Consult Planned? No Will Attempt Natural Childbirth [email or web address] Information not available 12/04/2015 Are You Currently [...] Information not available 08/15/2016 What Type Of Manager Digital Ad Operations Do You Use? None Information not available [...] No Information not available 12/23/2020 Are You Deaf Or Do You Have [...] Is Active? No Information not available 12/23/2020 Education 12 Information not available 11/17/2015 What Is The Highest Grade Or Level Of School You Have Completed Or The Highest Degree You Have Received? [id number] Information not available 12/23/2020 Do You Have An Electrostatic Air Filter? No Information not available 12/23/2020 Who Is Your Employer? [employer] Information not available 12/23/2020 How Many Days Of Moderate To Strenuous Exercise, Like A Brisk Walk, Did You Do In The Last 7 Days? 0 Information not available 12/23/2020 Have There Been [...] not available 12/23/2020 Illicit Drugs Pre- Marijuana [email or web address] Information not available 12/04/2015 Do You Use Insect Repellent Routinely? No Information not available 12/23/2020 Where Do You Live? SingleLevelHouse Information not available 12/23/2020 Live Alone Or With Others? With Others [email or web address] Information not available 12/04/2015 Do You Have [...] Do You Have A Medical Power Of Supply Controller? No Information not available 12/23/2020 Do You Have Moisture Problems In Your Home? No Information not available 12/23/2020 What Was The Date Of Your Most Recent Tobacco Screening? 03/05/2025 [email or web address] Information not available 03/05/2025 How Many Children Do You Have? 3 [...] To Smoke? No Information not available 11/17/2015 Are There Any Smokers In Your House? No Information not available 12/23/2020 How Much Tobacco Do You Smoke? No [email or web address] Information not available 02/29/2016 Smoking Pre- No Information not available 11/17/2015 Do You Participate In Social Media? Yes Information not available 12/23/2020 What Types Of Sporting Activities Do You Participate In? Running After Kids Information not available 12/23/2020 General Stress Level Medium Information not available 11/17/2015 Do You Use Sunscreen Routinely? No Information not available 11/17/2015 Supplements Vitamin Gummies Information not available 03/18/2020 Has Tobacco Cessation Counseling Been Provided? Yes Information not available 10/31/2023 On What Date Was Tobacco Cessation Counseling Provided? 10/31/2023 Information not available 10/31/2023 How Many Years Have You Smoked Tobacco? 0 [email or web address] Information not available 02/29/2016 Have You Recently Traveled Abroad? No Information not available 12/23/2020 Have You Used IV Drugs? No Information not available 12/23/2020 Do You Have Difficulty Walking Or Climbing Stairs? No Information not available 12/23/2020 Are You Currently In School? No Information not available 12/23/2020 Do You Have Any Dietary Restrictions? No Information not available 12/23/2020 How Many Days In The Past Year Have You Consumed 4 Or More Drinks? 4 Information not available 12/23/2020 Sex: Female Functional Status Question Answer Note LastModified by Organizat ion Details LastModified Time Do you or have you ever used smokeless tobacco? Never used smokeless tobacco Information not available 03/18/2020 Are you currently employed? Yes Information not available 11/17/2015 Have you been exposed to chemicals or toxins? No Information not available 12/23/2020 Do you have access to reliable transportation? No Information not available 12/23/2020 Are you able to care for yourself independently? Yes Information not available 12/23/2020 Do you have difficulty dressing, bathing, grooming, or toileting? No Information not available 12/23/2020 Do you or have you ever used e-cigarettes or vape? Never used electronic cigarettes Information not available 03/18/2020 What is your exercise level? Occasional Information not available 11/17/2015 Do you use any illicit or recreational drugs? Yes marijuana [email or web address] Information not available 10/13/2022 Do you or have you ever used any other forms of tobacco or nicotine? No Information not available 12/23/2020 What is your level of alcohol consumption? Moderate Information not available 12/23/2020 Have you been exposed to heavy metals? No Information not available 12/23/2020 Are you able to walk independently without assistance or assistive devices? [email or web address] Information not available 12/23/2020 Do you have difficulty doing errands alone? 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 Other kids Information not available 12/23/2020 Mental Status Question Answer Note LastModified by Organizat ion Details LastModified Time Do you feel stressed (tense, restless, nervous, or anxious, or unable to sleep at night)? [id number] Information not available 12/23/2020 Do you have difficulty concentrating, remembering or making decisions? No Information no t available 12/23/2020 Family History Relationship Description Onset Age of this Age Resolved Age Notes LastModified by Organization Details LastModified Time Paternal Grandmother Diabetes mellitus [email or web address] Not available 08/15 15:36:21 Medical History Condition [...] N Anemia N Constipation N Heart Attack ([place]) N Diabetes N Ovarian Cancer N Blood [...] Recorded Time Tdap 6 completed Not Available [facility] 11/30/2019 02:30:21 Hib, unspecified formulation 5 completed Alexa Fig[place] [facility] 10/20/2023 09:22:44 IPV 7 completed [place] Fig[place] [facility] 10/20/2023 09:22:44 IPV 5 completed Alexa Fig[place] [facility] 10/20/2023 09:22:44 IPV 0 completed Alexa Fig[place] [facility] 10/20/2023 09:22:44 IPV 9 completed [place] Fig[place] [facility] 10/20/2023 09:22:44 MMR 7 completed Alexa Figuero[place] [facility] 10/20/2023 09:22:44 MMR 9 completed Alexa Figuero[place] [facility] 10/20/2023 09:22:44 varicella 9 completed Alexa Figueroa, MA null, [place] [...] 10/20/2023 09:22:45 Tdap 7 completed [facility] 11/30/2019 02:41:32 Influenza, split virus, trivalent, PF 5 completed Not Available [facility] 11/30/2019 02:46:38 Tdap 0 completed Sondra Kraus, GIANNA null, [place] - [facility] 08/13/2020 17:48:00 Influenza, split virus, quadrivalent, preservative 6 completed Not Available [facility] 11/30/2019 02:46:44 Past Encounters Encounter ID Performer Location Encounter Start Date Encounter Closed Date Diagnosis/Indication Diagnosis SNOMED-CT Code Diagnosis ICD10 Code Diagnosis IMO Codes Diagnosis Note [id number] Harvinder Arenas MD [facility] (EXTRUDER OPERATOR VERTICAL) [address] [place] [address] 58567-466 0 02/23/2015 15:37:50 02/25/2015 14:20:09 Family planning surveillance [id number] Uses depot contraception [id number] Harvinder Arenas MD [facility] (EXTRUDER OPERATOR VERTICAL) [address] [place] [address] 24864-015 0 11/17/2015 11:07:32 11/17/2015 14:51:40 Normal 17684813 Z34.91 Administra tion of influenza vaccine 95785309 Z23 [id number] Harvinder Arenas MD [facility] (EXTRUDER OPERATOR VERTICAL) [address] [place] [address] 04257-917 0 12/04/2015 10:48:11 12/04/2015 11:31:38 Normal 52830330 Z34.91 [id number] Harvinder Arenas MD [facility] (EXTRUDER OPERATOR VERTICAL) [address] [place] [address] 22431-194 0 12/17/2015 11:15:42 12/17/2015 13:53:12 Normal 65476593 Z34.91 Vitamin D deficiency 347 29071 E55.9 [id number] Harvinder Arenas MD [facility] (EXTRUDER OPERATOR VERTICAL) [address] [place] [address] 44867-930 0 01/21/2016 09:45:14 01/21/2016 13:25:54 Routine care 090328893 Z34.92 Gastroesop hageal reflux disease 004131394 K21.9 [id number] Harvinder Arenas MD [facility] (EXTRUDER OPERATOR VERTICAL) [address] [place] [address] 21674-024 0 02/18/2016 10:49:21 02/18/2016 14:35:54 Routine care 951501473 Z34.92 Pain in throat 674590555 R07.0 Carrier of methicillin resistant Staphylococcus aureus 776415560 Z22.322 Sinusitis 54795087 J32.9 Upper resp iratory infection 79892402 J06.9 [id number] [facility]TRUD[facility]PER[facility] VERTICAL) [address] [place] [address] 97088-171 0 02/29/2016 09:41:22 02/29/2016 10:48:29 Routine care 580265695 Z34.92 Z13.1 Gastroesop hageal reflux disease 453193211 K21.9 Contracept ion education 361677226 Z30.09 [id number] [facility] (EXTRUDER OPERATOR VERTICAL) [address] [place] [address] 60661-639 0 03/17/2016 15:32:04 03/18/2016 12:17:40 Routine care 656242523 Z34.92 Z13.1 [id number] Harvinder Arenas MD [facility] (EXTRUDER OPERATOR VERTICAL) [address] [place] [address] 03822-322 0 04/04/2016 11:00:04 04/06/2016 13:57:53 Routine care 395986412 Z34.92 Z13.1 [id number] [facility] (EXTRUDER OPERATOR VERTICAL) [address] [place] [address] 80639-917 0 04/18/2016 10:34:23 04/18/2016 15:19:02 Routine care 621067237 Z34.92 Z13.1 Family concetta nning surveillance 232505829 Z30.09 [id number] MD [facility] (EXTRUDER OPERATOR VERTICAL) [address] [place] [address] 58446-611 0 2016 10:34:29 2016 18:11:22 Routine care 342853688 Z34.92 Z13.1 Carrier of methicillin resistant Staphylococcus aureus 675860563 Z22.322 [id number] Merrill Wall MD [facility] (EXTRUDER OPERATOR VERTICAL) [address] [place] [address] 44636-803 0 05/12/2016 11:01:09 05/13/2016 00:17:09 Routine care 957206923 Z34.83 Third trim unique 47884958 Z3A.36 [id number] Merrill Wall MD [facility] (EXTRUDER OPERATOR VERTICAL) [address] [place] [address] 37230-730 0 05/18/2016 10:34:13 05/30/2016 10:27:19 Routine care 652250614 Z34.[address] reptococcus carrier 3224615239 103 Z22.330 [id number] MD [facility] (EXTRUDER OPERATOR VERTICAL) [address] [place] [address] 05742-159 0 05/25/2016 10:43:34 05/25/2016 12:26:50 Routine care 566397944 Z34.83 Third trim unique 66882319 Z3A.36 [id number] [facility] (EXTRUDER OPERATOR VERTICAL) [address] [place] [address] 89312-469 0 06/01/2016 10:44:18 06/03/2016 09:48:56 Routine care 001413347 Z34.83 Third trim unique 22902642 Z3A.36 [id number] MD Drew Sandoval (EXTRUDER OPERATOR VERTICAL) [address] [place] [address] 88491-356 0 08/15/2016 14:30:47 08/18/2016 11:17:49 state 19683371 Z39.2 care 73857169 8 Z39.2 Family concetta nning surveillance 126760346 Z30.09 [id number] [facility] (EXTRUDER OPERATOR VERTICAL) [address] [place] [address] 65349-725 0 01/19/2017 10:50:51 01/20/2017 14:57:31 Routine care 438520325 Z34.92 Z13.1 [id number] [facility] (EXTRUDER OPERATOR VERTICAL) [address] [place] [address] 54871-187 0 02/03/2017 11:18:24 02/03/2017 11:54:13 Normal 82592913 Z34.91 [id number] MD Drew Sandoval (EXTRUDER OPERATOR VERTICAL) [address] [place] [address] 25652-374 0 02/16/2017 10:40:08 02/16/2017 17:02:58 Routine care 029611121 Z34.92 Z13.1 Abnormal progesterone [address] reptococcus carrier 1985342537 103 Z22.051 [id number] MD Drew Sandoval (EXTRUDER OPERATOR VERTICAL) [address] [place] [address] 90949-243 0 03/21/2017 11:23:51 03/21/2017 15:26:09 Routine care 401722180 Z34.92 Z13.1 [id number] [facility] (EXTRUDER OPERATOR VERTICAL) [address] [place] [address] 18598-446 0 04/19/2017 09:58:42 04/19/2017 15:18:31 Routine care 839385699 Z34.92 Z13.1 Gastroesop hageal reflux disease 756775772 K21.[address] reptococcus carrier 6076899672 103 Z22.330 Abnormal progesterone 13 3681058 R94.7 [id number] MD Drew Sandoval (EXTRUDER OPERATOR VERTICAL) [address] [place] [address] 05641-047 0 05/11/2017 09:47:53 05/11/2017 12:40:10 Routine care 019476247 Z34.92 Z13.1 Diabetes m ellitus screening 316177884 Z13.1 Z13.9 [id number] MD [facility] (EXTRUDER OPERATOR VERTICAL) [address] [place] [address] 10048-991 0 06/08/2017 09:52:25 06/08/2017 13:36:53 Routine care 449270076 Z34.92 Z13.1 Umbilical hernia 9176541 07 K42.9 Hernia noted on physical exam. Patient will need a abdominal binder post delivery. [id number] MD Drew Sandoval (EXTRUDER OPERATOR VERTICAL) [address] [place] [address] 29681-424 0 07/03/2017 16:15:41 07/06/2017 16:33:25 Routine care 981469849 Z34.[address] reptococcus carrier 8504196801 103 Z22.120 [id number] MD Drew Sandoval (EXTRUDER OPERATOR VERTICAL) [address] [place] [address] 12805-900 0 07/19/2017 15:38:08 07/19/2017 17:25:55 Routine care 167347561 Z34.92 Z13.1 Umbilical hernia 1216678 07 K42.9 Hernia noted on physical exam. Patient will need a abdominal binder post delivery. general surgery post Group B St reptococcus carrier 0755408138 103 Z22.330 Gastroesop hageal reflux disease 402462911 K21.9 Exposure t o sexually transmissible disorder 357123980 Z20.2 Large for gestation age fetus 696877845 O36.63X1 Varicella 32752463 B01.9 NON IMMUNE VARIVACC [id number] MD Drew Sandoval (EXTRUDER OPERATOR VERTICAL) [address] [place] [address] 73695-479 0 07/26/2017 11:39:55 07/26/2017 12:57:30 Routine care 384795608 Z34.92 Z13.1 [id number] [facility] (EXTRUDER OPERATOR VERTICAL) [address] [place] [address] 63000-999 0 08/02/2017 11:46:46 08/02/2017 13:32:42 Routine care 677293757 Z34.[address] reptococcus carrier 5046834800 103 Z22.330 Obesity 460004432 E66.9 Varicella vaccination 68 023191 Z23 [id number] MD [facility] (EXTRUDER OPERATOR VERTICAL) [address] [place] [address] 03532-578 0 08/10/2017 11:16:28 08/10/2017 14:38:57 Routine care 738356099 Z13.[address] reptococcus carrier 4836620781 103 Z22.330 Varicella 84901534 B01.9 NON IMMUNE VARIVACC [id number] MD [facility] (EXTRUDER OPERATOR VERTICAL) [address] [place] [address] 65874-694 0 09/05/2018 14:36:08 09/06/2018 14:16:33 Amenorrhea 54279824 N91.2 HCG weekly. [id number] MD [facility] (EXTRUDER OPERATOR VERTICAL) [address] [place] [address] 99360-087 0 03/18/2020 14:19:30 03/19/2020 06:12:55 Anemia 681155301 D64.9 Abnormal progesterone [address] reptococcus carrier 6083209669 103 Z22.330 Obesity 628111592 E66.9 Routine an tenatal care 505639900 Z13.1 Z34.93 Venereal d isease screening 814654135 Z11.3 screening 2437 73625 Z36.85 [id number] [facility] (EXTRUDER OPERATOR VERTICAL) [address] [place] [address] 49500-047 0 04/09/2020 09:33:09 04/10/2020 07:53:04 Herpes simplex type 2 infection 455173834 B00.9 Pt concerned with results. Advised that could be early infection. Testing shows equivocal IgG but negative supplement al test. Will recheck today. Routine an tenatal care 237359668 Z34.01 ACOG at 11 weeks. Pt denies n/v, bleeding, cramping. US 03/24 with EDC 10/29/2020 . Test results reviewed. OB educationa l packet reviewed and provided to patient. RTC in 2 weeks. Abnormal progesterone 13 3373734 R94.7 Pt not taking progestero ne and needs prescripti on resent to the pharmacy. Take as prescribed . Can take vaginally to reduce side effects. [id number] [facility] (EXTRUDER OPERATOR VERTICAL) [address] [place] [address] 54693-580 0 04/23/2020 15:45:38 04/27/2020 06:54:18 Routine care 895184761 Z34.01 Routine care at 13 weeks. FHT present at 159. Pt denies n/v, bleeding, cramping. NIPT drawn today. RTC in 4 weeks. screening 2437 93322 Z36.0 Abnormal progesterone 13 3987660 R94.7 Continue taking progestero ne as prescribed . Can take vaginally to reduce side effects. Will recheck levels at next visit. [id number] YANN HILL (EXTRUDER OPERATOR VERTICAL) [address] [place] [address] 37530-796 0 05/21/2020 09:53:11 05/22/2020 07:37:26 Routine care 048851388 Z34.01 Routine care at 17w0d. Pt denies n/v, bleeding, cramping. Reassuring FHT of 150. 2nd trimester US ordered today; pt advised to schedule at 20 weeks. AFP serum labs drawn today. Recheck progestero ne. RTC in 4 weeks. Abnormal progesterone 13 8237105 R94.7 Continue taking progestero ne as prescribed . Recheck today. 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 Pt reports she took Acyclovir and broke out in hives. No h/o outbreak. Advised to dc for now and will address at a later date. Consider trialing famciclovi r. [id number] YANN HILL (EXTRUDER OPERATOR VERTICAL) [address] [place] [address] 87350-404 0 06/18/2020 14:35:50 06/22/2020 06:50:41 Routine care 299061688 Z34.01 Routine care at 21w0d. Pt has no concerns today, denies contractio ns, LOF. Reassuring fundal height and FHT present at 150. US 06/04 with normal anatomy scan, EFW 24th percentile . RTC in 4 weeks. Abnormal progesterone 13 6434927 R94.7 Continue taking progestero ne as prescribed . [id number] YANN HILL (EXTRUDER OPERATOR VERTICAL) [address] [place] [address] 61166-718 0 07/30/2020 15:18:16 07/31/2020 14:05:04 Routine care 784994518 Z34.90 Routine care at 27w0d. Pt reporting a little mucusy discharge after intercours e, but denies contractio ns, LOF. Likely part of mucus plug, provided reassuranc e. Appropriat e fundal height and FHT present at 156. Discussed kick counts. Pt is not fasting and plans to return next week for lab work/GCT. RTC in 2 weeks. screening 0230 51373 Z36.9 Pt to return next week to complete. Venereal d isease screening 712019093 Z11.3 Abnormal progesterone 13 6854931 R94.7 Continue taking progestero ne as prescribed . [id number] YANN HILL (EXTRUDER OPERATOR VERTICAL) [address] [place] [address] 0 08/13/2020 15:26:59 08/17/2020 15:03:18 Routine care 085258491 Z34.90 25yo AAF, , presents for FRANKLYN [...] RTC in 2 weeks. Sterilizat ion requested 321151404 Z30.2 Pt desires PP BTL. Papers signed. [id number] YANN HILL (EXTRUDER OPERATOR VERTICAL) [address] [place] [address] 0 08/27/2020 15:31:25 08/31/2020 15:13:36 Routine care 996437042 Z34.90 25yo AAF, , presents for FRANKLYN at 31 weeks 0 days. c/b abnormal progestero ne, HSV, GBS. She has no specific concerns today. Denies contractio ns, LOF. + movements. Reassuring fundal height and FHT present at 151. 3rd trimester US completed today, awaiting results. Pt declined flu vaccine. RTC in 2 weeks. Influenza vaccination declined 196974596 Z28.21 Family concetta nning surveillance 186473819 Z30.09 Pt having second thoughts in PP BTL. Interested in Nexplanon instead. [id number] YANN HILL (EXTRUDER OPERATOR VERTICAL) [address] [place] [address] 0 09/11/2020 15:22:01 09/14/2020 20:05:47 Routine care 916958878 Z34.90 Pt is a 25yo AAF, , presents for FRANKLYN at 33 weeks 1 day gestation. c/b abnormal progestero ne, HSV, GBS. +FM. FHT 140. FH reassuring . Pt denies vaginal bleeding, discharge, contractio ns, LOF. US 08/27/20 with EFW 37%, JAX wnl. Pt wants 3D US, will order. Pt declined flu shot. Influenza vaccination declined 995588620 Z28.21 [id number] YANN HILL (EXTRUDER OPERATOR VERTICAL) [address] [place] [address] 75567-786 0 09/24/2020 14:53:25 09/30/2020 09:50:27 Routine care 439154732 Z34.90 Pt is a 25yo AAF, , presents for FRANKLYN at 35 weeks gestation. c/b abnormal progestero ne, HSV, GBS. +FM. FHT 147. FH reassuring . Complains of nausea and reflux. Pt denies vaginal bleeding, discharge, contractio ns, LOF. Pt has US earlier today, awaiting report. RTC in 1 week. Gastroesop hageal reflux disease without esophagitis 561707404 K21.9 Advised to stay away from spicy, acidic, and greasy foods. Do not eat within 2 hours of going to bed. Stay sitting up after meals. Start famotidine as prescribed . [id number] YANN HILL (EXTRUDER OPERATOR VERTICAL) [address] [place] [address] 45228-480 0 10/02/2020 09:48:42 10/02/2020 10:43:39 Routine care 792628483 Z34.90 Pt is a 25yo AAF, , presents for FRANKLYN at 36w1d. c/b abnormal progestero ne, HSV, GBS. Having irregular contractio ns. Denies cramping, abnormal bleeding, LOF. +FM. FHT 131. FH reassuring . Cervix exam: 0cm, 0%, -4. US 09/24 with EFW 19%, JAX wnl, vertex presentati on. WTC/WLB reviewed. RTC in [address] Arenas. screening 2426 23526 Z36.85 Venereal d isease screening 442230813 Z11.3 Genital he rpes simplex 70002730 A60.9 On suppressiv e antiviral. [id number] [facility] (EXTRUDER OPERATOR VERTICAL) [address] [place] [address] 40986-338 0 10/07/2020 11:10:06 10/07/2020 11:44:25 Routine care 600831402 Z13.1 Z34.93 Genital he rpes simplex 39748584 A60.[address] reptococcus carrier 4856087519 103 Z22.330 Obesity 730392179 E66.9 Anemia 818443255 D64.9 [id number] MD Drew Sandoval (EXTRUDER OPERATOR VERTICAL) [address] [place] [address] 33458-807 0 10/15/2020 11:43:51 10/20/2020 12:03:03 Routine care 458180595 Z13.1 Z34.93 Abnormal progesterone [address] reptococcus carrier 4429804928 103 Z22.330 Genital he rpes simplex 80126398 A60.9 [id number] MD [facility] (EXTRUDER OPERATOR VERTICAL) [address] [place] [address] 61814-505 0 11/19/2020 10:02:26 11/25/2020 12:47:45 care 256691670 Z39.2 Family concetta nning surveillance 753133582 Z30.09 Implantati on of subcutaneous contraceptive 640411461 Z30.9 [id number] YANN HILL (EXTRUDER OPERATOR VERTICAL) [address] [place] [address] 74156-641 0 12/23/2020 11:59:06 12/25/2020 09:40:06 Pruritic rash 57106317 L28.2 2 episodes of pruritic rash which resolved with applicatio n of Miracle cream. PE unremarkab le. Less likely related to Nexplanon. Suspect product related. Advised her use sensitive skin laundry detergent, avoid scented body washes and lotions. RTC if rash returns. [id number] YANN DODSON (Adult Med) [address] [place] [address] 42260-413 0 10/13/2022 08:31:11 10/17/2022 11:59:45 Contraception care 645396500 Z30.40 Patient had Nexplanon removed today and [...] within 1 year Removal of subcutaneous contraceptive 932848147 Z30.46 Patient has had Nexplanon for the [...] options Screening for malignant neoplasm of cervix 208652288 Z12.4 Patient's last pap was 2019, normal results. Patient was informed to schedule next pap smear within 1 year. [id number] YANN DODSON (Adult Med) [address] [place] [address] 0 10/20/2023 09:11:21 10/23/2023 10:50:21 Contraception care 885884305 Z30.40 She is doing well control pills and would like to continue them. Has her menses every 3 months with some intermitte nt spotting.- test negative- c/w Seasonique 3 month dose pack and follow up within 1 year- continue with safe sex practices and wear condoms to protect against STDs Screening for malignant neoplasm of cervix 310873948 Z12.4 Patients's last pap was 2019, normal results.- due for repeat, she declined today but plans to schedule a f/u apt Obesity 895684675 E66.9 Advised decreased portion sizes, good food choices, limited eating out or fast food and eliminate soda and juice from diet. Advised physical activity daily and offered encouragem ent to continue with positive changes made so far. [id number] YANN HILL (EXTRUDER OPERATOR VERTICAL) [address] [place] [address] 17592-268 0 10/31/2023 09:43:41 11/09/2023 15:35:57 Gynecologic examination 83669203 Z01.419 Cervical cancer screening: Last Pap 03/18/2020 NILM, updated todayBreas t cancer screening: Discussed SBEContrac eption: OCPsDiet/e xercise: Counseled regarding importance of physical activity, healthy diet and appropriat e calcium intake.RTC in 1yr Venereal d isease screening 047976945 Z11.3 Routine screening, safe sex practices discussed. [id number] MD Drew GLASER (EXTRUDER OPERATOR VERTICAL) [address] [place] [address] 44759-983 0 12/09/2024 14:34:41 12/18/2024 16:19:10 Contraception care management 567300129 Z30.9 Discussed routine contracept ion care. Informed by staff that test was positive after patient was informed test was negative. Test was confirmed with repeat testing. Patient informed over the phone and will return for blood testing.Yann marquez advised not to take OCP. test positive 812307760 Z32.01 [id number] MD Drew Flor (Adult Med) [address] [place] [address] 99803-243 0 01/16/2025 14:43:47 01/21/2025 11:25:34 test positive 658588359 Z32.01 LMP 11/15/24, EDD10/08/14 5, 8.6 weeks gestationU /S orderedSta rt vitaminsLa bor and precaution s discussed- handouts given to patientRTC 2 weeks for New OB visit/labs /pap Obesity 498077572 E66.81 2 BM 37.9 Depression screening 171 033324 Z13.31 PHQ9- Negative (2 out of 27) Mental hea lth screening 164742249 Z13.39 GAD7- Negative (1 out of 21) [id number] MD Drew Weaver (Adult Med) [address] [place] [address] 77237-276 0 02/05/2025 14:17:42 02/06/2025 13:07:29 Routine care 606094220 Z34.91 C/W vitaminsPa p and nuswab sample takenLabs orderedLab or and precaution s discussedR TC 4 weeks test positive 197920730 Z32.01 Glycosuria 05842088 R81 A1C orderedDis cussed with patient decreasing concentrat ed sugars Proteinuria 47296963 R80 .9 Obesity 994451990 E66.9 BM 37.6 Depression screening 171 112756 Z13.31 PHQ9- Negative (1 out of 27) Mental hea lth screening 349560298 Z13.39 GAD7- Negative (1 out of 21) [id number] MD Drew Flor (EXTRUDER OPERATOR VERTICAL) [address] [place] [address] 24398-691 0 03/05/2025 15:42:19 03/14/2025 14:27:06 care status 023963014 Z34.90 2819986543 C/W vitaminsLa bor and precaution s discussedR eferral to OB to deliver at [place] Obesity 367214894 E66.9 BM 38.4 Depression screening 171 376923 Z13.31 6745332 PHQ9- Negative (1 out of 27) Mental hea lth screening 372842015 Z13.30 5894711222 GAD7- Negative (0 out of 21) Health Concerns Section Related Observation LastModified by Organization Detai ls LastModified Time None Recorded Concern Status LastModified by Organization Details LastModified Time None Recorded Advance Directives Directive N: Payers Insurance Date Sequence Insurance Name Policy Number Policy Prasad Covered Member ID Prasad Member ID Guarantor Name 10/16/2024 1 [place] Ashlee Hatch [id number] Ashlee Hatch 04/02/2020 2 MEDICAID - [facility] [place] [id number] Ashlee Hatch 08/30/2020 SLIDING FEE SCHEDULE - DISCOUNT Ashlee Hatch 03/14/2025 1 [facility] (MEDICAID HMO) [id number] Ashlee Hatch [id number] Ashlee Hatch 04/02/2020 2 *SELF PAY* Brandan Hatch 10/16/2024 1 [place] Ashlee Hatch [id number] Ashlee Hatch 10/16/2024 1 ON LICENSE OF [facility] (MEDICAID HMO) Ashlee Hatch [id number] Ashlee Hatch 10/16/2024 1 [place]OVE [place] Ashlee Hatch [id number] Ashlee Hatch 10/16/2024 1 [place] Ashlee Hatch [id number] Ashlee Hatch 10/16/2024 1 [place] Ashlee Hatch [id number] Ashlee Hatch 10/16/2024 1 [place] [facility] Ashlee Hatch [id number] Ashlee Hatch 10/16/2024 1 [place] [facility] Ashlee Hatch [id number] Ashlee Hatch 10/16/2024 1 [facility] - DOS PRIOR TO 2021 (MEDICAID REPLACEMENT - HMO) Ashlee Hatch [id number] Ashlee Hatch 02/06/2025 2 [place] [facility] Ashlee Hatch [id number] Ashlee Hatch Notes Date Note Type Note Provider Name and Address Organization Details Recorded Time 3 text/html Annual GYNReported by PatientGenitourinary symptomsFor urinary symptoms, patient reportsno hematuriaandno incontinence. For vulva, patient reportsno genital lesion. For vagina, patient reportsnormal vaginal discharge.Breast symptomsFor breast, patient reportsno breast pain,no breast lump, andno nipple discharge.ContraceptionFo r current contraception, patient reportssatisfied with current contraception,monogamous relationship, andoral contraceptives.Endocrine symptomsFor sexual complaints, patient reportsno sexual complaints,no pain during intercourse, andnormal libido. For menopausal symptoms, patient reportsno menopausal symptomsandnormal vaginal lubrication.Psychological symptomsFor psychological symptoms, patient reportsno depression,no anxiety, andno pmdd.Preventative measuresFor preventive measures, patient reportsencourage self breast examination,encourage regular exercise,encourage no tobacco use,encourage regular mammograms starting age 40, andfollowed with q3 year pap smear and high risk hpv typing.ROS as noted in the HPI Ashlee is a 28 y/o F here for an annual exam. She reports her last pap was three years ago and was normal. She reports she gets a menses every three months on OCPs and denies any heavy bleeding or cramping. YANN HILL Attn: Accounting,[address], [place], [address] [place] [address], [place] [facility] 11/08/2023 16:37:33 5 text/html ROS as noted in the HPI 29F here for contraception visit.Would like to [...] in the future. LOIDA LANGE MD Attn: Accounting[address], [place], [address] [place] [address], [place] [facility] 12/13/2024 11:57:05 5 text/html ROS as noted in the HPI See OB worksheet Devin Leslie MD Attn: Accounting[address], [place], [address] [place] [address], [place] [facility] 01/17/2025 14:59:41 5 text/html ROS as noted in the HPI DAVIN RAJPUT PA-C Attn: Accounting[address], [place], [address] [place] [address], [place] [facility] 02/05/2025 15:07:13 5 text/html ROS as noted in the HPI Devin Leslie MD Attn: Accounting[address], [place], [address] [place] [address], [place] [facility] 03/05/2025 18:47:09 OBGyn Episode Ob Episode Information Episode Created Date Number of Fetuses Patient Bloodtype Patient rh Status Prepregnancy Weight lbs Domestic Partner Domestic Partner Phone Father Name Clerk Rating Status 01/17/20 25 1 B Positive OPEN Fetus Data First Name Last Name Admitted to NICU Weight (g) Sex Living Outcome Pediatric Complications Fetus ID Race Codes Race Delivery Type [id number] Lefty Calculation Initial Lefty Date Initial Exam Date Initial Exam Provider Initial Ultrasound Date Last Menstrual Period Date Ultra Sound Weeks Gestation 08/18/2025 01/16/2025 01/27/2025 11/15/2024 11 Eighteen To Twenty Week Lefty Update [...] in lbs Pre/Post Dialysis Refused With clothes 220.543863558829 BP Diastolic BP Location Tested BP Systolic [...] patientRTC 2 weeks for New OB visit/labs/pap Flowsheet Date 02/05/2025 Lord Score Blood Edema Fundus Height Fundus Units Glucose Ketones Leukocytes Nitrite Labor Signs Protein Cervic Dilation Cervic Effacement Cervic Station neg none 1+ negative none trace Type Weight in lbs Pre/Post Dialysis Refused With clothes 219.315794991729 BP Diastolic BP Location Tested BP Systolic BP Type 64 L arm 122 sitting Fetus Heart Rate Present Fetus Movement A Yes Comments 29 y/o AA F here for Ne w OB appt at 12.2 weeks gestation. C/o some nausea. U/S done and demonstrates LICO . Pt denies abdominal pain, cramping, vaginal bleeding.C/W vitaminsPap and nuswab sample takenLabs orderedLabor and precautions discussedRTC 4 weeks Flowsheet Date 03/05/2025 Lord Score Blood Edema Fundus Height Fundus Units Glucose Ketones Leukocytes Nitrite Labor Signs Protein Cervic Dilation Cervic Effacement Cervic Station neg none 16 cm none negative none neg Type Weight in lbs Pre/Post Dialysis Refused With clothes 223.717605648537 BP Diastolic BP Location Tested BP Systolic BP Type 68 R arm 122 sitting Fetus Heart Rate Present A 150 Present Fetus Movement A Yes Comments 29 y/o AA F here forOB appt at16.2 weeks gestation. Pt denies abdominal pain, cramping, vaginal bleeding.C/W vitaminsLabor and precautions discussedReferral to OB to deliver at [place] Menstrual History Last Menstrual Date Menses Monthly On Bcp Conception Prior Menses Frequency Hcg Plus Date Menarche Onset Age 0111/15/2024 true false 11/15/2024 30 01/17/20 2 5 12 Genetic Screening And Infection History Question Response Note Patient's Age Will Be 35 Years Or Older At Estim ated Date of Delivery false Thalassemia (British, Cymro, Mediterranean, Or Background): MCV < 80 false Neural Tube Defect (Meningomyelocele, Spina Bifi da, Or Anencephaly) false Congenital Heart Defect false Down Syndrome false Riccardo-Sachs (eg, Mormon, Cajun, Honduran-Liberian) f alse Shira Disease false Sickle Cell Disease Or Trait () false Hemophilia Or Other Blood Disorders false Muscular Dystrophy false Gustavus's Chorea false Mental Retardation/Autism false If Yes, [...] ed By 01/16/2025 Anticipated course of care [email or web address] 01/16/2025 Alcohol oruyqj80 01/16/2025 Intimate partner violence op erez46 01/16/2025 Environmental/work hazards o perez46 01/16/2025 Screening for aneuploidy ope rez46 01/16/2025 Nutrition counseling ; special diet; dietary precautions (mercury, listeriosis) ehfxeb59 01/16/2025 Childbirth classes/hospital facilities 01/16/2025 HIV and other routine tests wjanha29 01/16/2025 Risk factors identif ied by history wkokfz50 01/16/2025 Weight gain counseling opere z46 01/16/2025 Exercise 01/16/2025 Teratogens uvkhov45 01/16/2025 Use of any medicatio ns (including supplements, vitamins, herbs, or OTC drugs) uqmdnt53 01/16/2025 pfmyeo81 01/16/2025 Sexual activity 01/16/2025 Tobacco/smoking cess ation counseling (ask, advise, assess, assist, and arrange) 01/16/2025 Illicit/recreational drugs o perez46 01/16/2025 Dental care zjnizz75 01/16/2025 Travel usgwhb41 01/16/2025 Seat belt use iomqas38 01/16/2025 Indications for ultrasonography yqvcan92 01/16/2025 Avoidance of saunas or hot tubs herftn10 01/16/2025 Toxoplasmosis precautions (cats/raw meat) vqzwin72 Second Trimester Discussed Date Discussion Item Discussion [...] Domestic Partner Domestic Partner Phone Father Name Clerk Rating Status 03/18/20 20 1 B Positive 192 CLOSED Fetus Data First Name Last Name Admitted to NICU Weight (g) Sex Living Outcome Pediatric Complications Fetus ID Race Codes Race Delivery Type Doug Dsouza ie Lázaro false 3061.74 6 M true Full Term PEDS Dr. 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, [facility] Nexplanon , baby boy - Doug Problem Name Start Date End Date Resolution Snomed Code Not e Anemia 09/07/2018 774433479 Umbilical hernia 07/19/2017 030672069 Abnormal progesterone 01/11/2017 6291381 00 low at initial ob labs Obesity 08/02/2017 509822692 Group B Streptococcus carrier 01/25/2017 4710382199212 Gastroesophageal reflux disease 552149199 Genital herpes simplex 03/31/2020 592593 06 Requires varicella vaccination 03/31/2020 354405451 Lefty Calculation Initial Lefty Date Initial Exam Date Initial Exam Provider Initial Ultrasound Date Last Menstrual Period Date Ultra Sound Weeks Gestation 10/29/2020 03/18/2020 [facility] 03/24/2020 01/23/2020 8 Eighteen To Twenty Week Lefty Update Ultra Sound Date Fundal Height At Umbil Quickening Date Ultra Sound Latest Weeks Gestation Final Lefty Confirmed By Final Lefty Confirmed Date Final Lefty Date Ultra Sound Latest Days Gestation 03/24/20 20 8 [facility] 10/07/2020 020 5 Pre-[place] Flowsheet Flowsheet Date 03/18/2020 Lord Score Blood Edema Fundus Height Fundus Units Glucose Ketones Leukocytes Nitrite Labor Signs Protein Cervic Dilation Cervic Effacement Cervic Station neg none 7 wks none negative none neg Type Weight in lbs Pre/Post Dialysis Refused With clothes 192.062180281773 BP Diastolic BP Location Tested BP Systolic BP Type 64 102 sitting Fetus Heart Rate Present Fetus Movement Comments nob/ rx prog Flowsheet Date 04/09/2020 Lord Score Blood Edema Fundus Height Fundus Units Glucose Ketones Leukocytes Nitrite Labor Signs Protein Cervic Dilation Cervic Effacement Cervic Station 11 wks Type Weight in lbs Pre/Post Dialysis Refused Weight 187.044060002666 BP Diastolic BP Location Tested BP Systolic [...] Weight in lbs Pre/Post Dialysis Refused Weight 186.189377100779 BP Diastolic BP Location Tested BP Systolic BP Type 60 104 sitting Fetus Heart Rate Present A 159 Present Fetus Movement Comments Routine care at 13 weeks. Pt denies n/v, bleeding, cramping. ResasqbE09 drawn today. RTC in 4 weeks. Flowsheet Date 05/21/2020 Lord Score Blood Edema Fundus Height Fundus Units Glucose Ketones Leukocytes Nitrite Labor Signs Protein Cervic Dilation Cervic Effacement Cervic Station neg none 17 wks none negative neg Type Weight in lbs Pre/Post Dialysis Refused Weight 192.260840279678 BP Diastolic BP Location Tested BP Systolic [...] Weight in lbs Pre/Post Dialysis Refused Weight 194.318705458968 BP Diastolic BP Location Tested BP Systolic [...] Weight in lbs Pre/Post Dialysis Refused Weight 198.817300458267 BP Diastolic BP Location Tested BP Systolic [...] Weight in lbs Pre/Post Dialysis Refused Weight 203.22922567866 BP Diastolic BP Location Tested BP Systolic [...] in lbs Pre/Post Dialysis Refused With clothes 209.985550404253 BP Diastolic BP Location Tested BP Systolic [...] Weight in lbs Pre/Post Dialysis Refused Weight 209.584679275275 BP Diastolic BP Location Tested BP Systolic [...] Weight in lbs Pre/Post Dialysis Refused Weight 207.146823088499 BP Diastolic BP Location Tested BP Systolic [...] Station neg none 36 wks none negative Wilson Elena neg 0cm 0% -4 Type Weight in lbs Pre/Post Dialysis Refused Weight 208.046663732659 BP Diastolic BP Location Tested BP Systolic [...] in lbs Pre/Post Dialysis Refused With clothes 214.309743576953 BP Diastolic BP Location Tested BP Systolic [...] in lbs Pre/Post Dialysis Refused With clothes 213.733240680770 BP Diastolic BP Location Tested BP Systolic [...] in lbs Pre/Post Dialysis Refused With clothes 221.964416602312 BP Diastolic BP Location Tested BP Systolic BP Type Fetus Heart Rate Present Fetus Movement Comments Menstrual History Last Menstrual Date Menses Monthly On Bcp Conception Prior Menses Frequency Hcg Plus Date Menarche Onset Age 0301/23/2020 false Genetic Screening And Infection History Question Response Note Patient's Age Will Be 35 Years Or Older At Estim ated Date of Delivery false Thalassemia (British, Cymro, Mediterranean, Or Background): MCV < 80 false Neural Tube Defect (Meningomyelocele, Spina Bifi da, Or Anencephaly) false Congenital Heart Defect false Down Syndrome false Riccardo-Sachs (eg, Mormon, Cajun, Honduran-Liberian) f alse Shira Disease false Sickle Cell [...] [email or web address] 04/09/2020 Dental care dental consent provided jcmerlin arreagai1 04/09/2020 Travel [email or web address] 04/09/2020 Seat belt use jcortopassi1 04/09/2020 Indications for ultrasonography jcortopassi1 04/09/2020 Avoidance of saunas or hot tubs jcortopassi1 04/09/2020 Toxoplasmosis precau tions (cats/raw meat) jcortopassi1 Second Trimester Discussed Date Discussion Item Discussion Note Discuss ed By 05/21/2020 Selecting a care provider [facility] ([facility]) jcortopassi1 05/21/2020 family planning/tubal sterilization Nexplanon [...] 07/30/2020 Anesthesia plans epidural jcortopassi 1 07/30/2020 [place] education (n ewborn screening, jaundice, SIDS/safe sleeping position, car seat) discussed at [facility] jcortopassi1 07/30/2020 Circumcision yes jcortopassi1 07/30/2020 Postterm [...] Domestic Partner Domestic Partner Phone Father Name Clerk Rating Status 11/17/19 16 1 B Positive 175 Alfred Medina Same CLOSED Fetus Data First Name Last Name Admitted to NICU Weight (g) Sex Living Outcome Pediatric Complications Fetus ID Race Codes Race Delivery Type Yovani Medina false 3827.18 25 M true Full Term [address] 2053-5 Black or Afric an Ameri can Vaginal Problems Problem Notes Baby Boy, Acosta Gurrola y, circumcision is Yes, Bottle Feeding, Estefania Kramer, 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 PPBC pills. changed her mind from nexplanon to control pills. MSimpson RN [facility]OSPITAL information verified with patient on 05/25/2016 visit. Pt is GBS Positive. MSimpson RN [facility]OSPITAL 05/25/2016 Problem Name Start Date End Date Resolution Snomed Code Not e Abnormal progesterone 63504437 0 Vitamin D deficiency 94372961 Varicella 66333209 Gastroesophageal reflux disease 569238866 Upper respiratory infection 54 525229 Pain in throat 955372567 Sinusitis 88065889 Lefty Calculation Initial Lefty Date Initial Exam [...] Type Weight in lbs Pre/Post Dialysis Refused 196.126035485032 BP Diastolic BP Location Tested BP Systolic [...] Type Weight in lbs Pre/Post Dialysis Refused 198.003143534577 BP Diastolic BP Location Tested BP Systolic [...] Type Weight in lbs Pre/Post Dialysis Refused 203.85439245927 BP Diastolic BP Location Tested BP Systolic [...] Type Weight in lbs Pre/Post Dialysis Refused 211.345152386719 BP Diastolic BP Location Tested BP Systolic [...] Type Weight in lbs Pre/Post Dialysis Refused 212.78378327917 BP Diastolic BP Location Tested BP Systolic BP Type 64 102 sitting Fetus Heart Rate Present A 134 Present Fetus Movement A Yes Comments Flowsheet Date 03/17/2016 Lord Score Blood Edema Fundus Height Fundus Units Glucose Ketones Leukocytes Nitrite Labor Signs Protein Cervic Dilation Cervic Effacement Cervic Station neg none 29 cm 2+ negative none neg Type Weight in lbs Pre/Post Dialysis Refused 219.719887509733 BP Diastolic BP Location Tested BP Systolic [...] Type Weight in lbs Pre/Post Dialysis Refused 218.891045928315 BP Diastolic BP Location Tested BP Systolic BP Type 60 124 sitting Fetus Heart Rate Present A 145 Present Fetus Movement A Yes Comments Flowsheet Date 04/18/2016 Lord Score Blood Edema Fundus Height Fundus Units Glucose Ketones Leukocytes Nitrite Labor Signs Protein Cervic Dilation Cervic Effacement Cervic Station neg none 31 cm none negative none neg Type Weight in lbs Pre/Post Dialysis Refused 218.089198194156 BP Diastolic BP Location Tested BP Systolic BP Type 68 124 sitting Fetus Heart Rate Present A 143 Present Fetus Movement A Yes Comments Flowsheet Date 2016 Lord Score Blood Edema Fundus Height Fundus Units Glucose Ketones Leukocytes Nitrite Labor Signs Protein Cervic Dilation Cervic Effacement Cervic Station neg none 34 cm none negative none neg Type Weight in lbs Pre/Post Dialysis Refused 224.268140072266 BP Diastolic BP Location Tested BP Systolic [...] Type Weight in lbs Pre/Post Dialysis Refused 228.287842773518 BP Diastolic BP Location Tested BP Systolic BP Type 70 126 sitting Fetus Heart Rate Present A 138 Present Fetus Movement A Yes Comments Flowsheet Date 05/18/2016 Lord Score Blood Edema Fundus Height Fundus Units Glucose Ketones Leukocytes Nitrite Labor Signs Protein Cervic Dilation Cervic Effacement Cervic Station neg trace 37 cm 1+ negative Wilson Elena neg 0cm 50% -4 Type Weight in lbs Pre/Post Dialysis Refused 234.038017538420 BP Diastolic BP Location Tested BP Systolic BP Type 86 126 sitting Fetus Heart Rate Present A 136 Present Fetus Movement A Yes Comments Flowsheet Date 05/25/2016 Lord Score Blood Edema Fundus Height Fundus Units Glucose Ketones Leukocytes Nitrite Labor Signs Protein Cervic Dilation Cervic Effacement Cervic Station neg none 39 cm trace negative Dev Elena neg Type Weight in lbs Pre/Post Dialysis Refused 234.194509956710 BP Diastolic BP Location Tested BP Systolic [...] Type Weight in lbs Pre/Post Dialysis Refused 237.429482471870 BP Diastolic BP Location Tested BP Systolic BP Type 84 126 sitting Fetus Heart Rate Present A 159 Present Fetus Movement A Yes Comments Patient desires inducton of labor. Flowsheet Date 08/15/2016 Lord Score Blood Edema Fundus Height Fundus Units Glucose Ketones Leukocytes Nitrite Labor Signs Protein Cervic Dilation Cervic Effacement Cervic Station Type Weight in lbs Pre/Post Dialysis Refused 220.736171041702 BP Diastolic BP Location Tested BP Systolic [...] At Estimated Date of Delivery false Thalassemia (British, Cymro, Mediterranean, Or Background): MCV < 80 false Neural Tube Defect (Meningom yelocele, Spina Bifida, Or Anencephaly) false Congenital Heart Defect false Down Syndrome false Riccardo-Sachs (eg, Mormon, Cajun, Honduran-Liberian) f alse Shira Disease false Sickle Cell Disease Or Trait () false Hemophilia Or Other Blood Disorders false Muscular Dystrophy false Cystic Fibrosis false Gustavus's Chorea false Mental Retardation/Autism false If Yes, [...] Anticipated course of care Hando ut given [email or web address] 12/04/2015 Alcohol Handout given [place] [address] 12/17/2015 Intimate partner violence [facility] 12/17/2015 Environmental/work hazards [facility] 12/17/2015 Screening for aneuploidy lan martinez 12/04/2015 Nutrition counseling ; special diet; dietary precautions (mercury, listeriosis) Handout given [place] [address] 12/17/2015 Childbirth classes/hospital facilities [facility] 12/04/2015 HIV and other routine tests [place] [address] 12/17/2015 Risk factors identif ied by history [facility] 12/04/2015 Weight gain counseling Handout given [place] [address] 12/04/2015 Exercise Handout given [id number] 12/04/2015 Teratogens Handout given [place] [address] 12/17/2015 Use of any medicatio ns (including supplements, vitamins, herbs, or OTC drugs) [facility] 12/04/2015 bottle [place] [address] 12/17/2015 Sexual activity [facility] 12/04/2015 Tobacco/smoking cess ation counseling (ask, advise, assess, assist, and arrange) Handout given [place] [address] 12/04/2015 Illicit/recreational drugs Handout given [id number] 12/04/2015 Dental care Handout given [email or web address] 12/17/2015 Travel [facility] 12/04/2015 Seat belt use Handout given [place] [address] 12/17/2015 Indications for ultrasonography [facility] 12/04/2015 Avoidance of saunas or hot tubs Handout kj patel [place] [address] 12/04/2015 Toxoplasmosis precautions (cats/raw meat) Handout given [email or web address] Second Trimester Discussed Date Discussion Item Discussion Note Discuss ed By 12/04/2015 Selecting a care provider Dr. Kramer uohnhpjg06 12/04/2015 family planning/tubal sterilization Nexplanon or BCP's for PPBC dependent on if patient gets insurance taken care of. Advised patient [email or web address] 12/17/2015 Depression screening (when indicated) [facility] 12/17/2015 Abnormal lab values [facility] an 12/17/2015 Signs and symptoms o f labor [facility] 12/17/2015 Intimate partner violence [facility] 12/17/2015 Tobacco/smoking cess ation counseling (ask, advise, assess, assist, and arrange) [facility] Third Trimester Discussed Date Discussion Item Discussion Note Discuss ed By 05/25/2016 Intimate partner violence ms vrxosz79 12/04/2015 Anesthesia plans [facility] ett[facility] 05/25/2016 [place] education (n ewborn screening, jaundice, SIDS/safe sleeping position, car seat) [email or web address] 12/04/2015 Circumcision Yes [id number] 05/25/2016 Postterm counseling [email or web address] 19 05/25/2016 movement monitoring given kick coun ts 12/04/2015 bottle ufyloxeu67 05/25/2016 Labor signs given WTC and WLB [id number] 05/25/2016 [facility] 05/25/2016 Family medical leave or disability forms [email or web address] Trial of labor after (TOLAC) counseling first 05/25/2016 Signs and symptoms of preeclampsia [id number] Delivery Information Delivery Date Delivery Type Labor [...] Domestic Partner Domestic Partner Phone Father Name Clerk Rating Status 01/20/20 17 1 B Positive 213 emory medina will decide CLOSED Fetus Data First Name Last Name Admitted to NICU Weight (g) Sex Living Outcome Pediatric Complications Fetus ID Race Codes Race Delivery Type Bereket muniz 3657.08 55 M true Full Term [address] 2054-5 Black or Afric an Ameri can Vaginal Problems Problem Notes baby boy, Bereket mitchell, yes to circumcision, breast and bottle feed, vaginal with epidural, MD Dr. FELIX Radford, [facility] to be decided. gave info to take home,hj-fpsKIPO-chor pt. pamphlets on IUDS. donatorma Bottle feed PPBC pill, donato,ma Problem Name Start Date End Date Resolution Snomed Code Not e Abnormal progesterone 01/11/2017 2653349 00 low at initial ob labs Group B Streptococcus carrier 01/25/2017 5583770730648 Varicella vaccination 22350575 varicella non immune needs vaccine post mds Varicella 22127201 Lefty Calculation Initial Lefty Date Initial Exam [...] Sound Latest Days Gestation 02/02/20 17 11 [facility] 02/16/2017 017 0 Pre- Flowsheet Flowsheet Date 01/19/2017 Lord Score Blood Edema Fundus Height Fundus Units Glucose Ketones Leukocytes Nitrite Labor Signs Protein Cervic Dilation Cervic Effacement Cervic Station neg none 8 wks none small trace Type Weight in lbs Pre/Post Dialysis Refused 214.929839490508 BP Diastolic BP Location Tested BP Systolic [...] Type Weight in lbs Pre/Post Dialysis Refused 216.106981392709 BP Diastolic BP Location Tested BP Systolic [...] Type Weight in lbs Pre/Post Dialysis Refused 226.902216664368 BP Diastolic BP Location Tested BP Systolic [...] Type Weight in lbs Pre/Post Dialysis Refused 231.969645838722 BP Diastolic BP Location Tested BP Systolic BP Type 62 106 Fetus Heart Rate Present A 150 Present Fetus Movement A Yes Comments Flowsheet Date 05/11/2017 Lord Score Blood Edema Fundus Height Fundus Units Glucose Ketones Leukocytes Nitrite Labor Signs Protein Cervic Dilation Cervic Effacement Cervic Station neg none 27 cm none negative none neg Type Weight in lbs Pre/Post Dialysis Refused 231.072620017990 BP Diastolic BP Location Tested BP Systolic [...] Type Weight in lbs Pre/Post Dialysis Refused 227.206392512562 BP Diastolic BP Location Tested BP Systolic BP Type 66 114 sitting Fetus Heart Rate Present A 160 Present Fetus Movement A Yes Comments Flowsheet Date 07/03/2017 Lord Score Blood Edema Fundus Height Fundus Units Glucose Ketones Leukocytes Nitrite Labor Signs Protein Cervic Dilation Cervic Effacement Cervic Station neg none 33 cm none negative none neg Type Weight in lbs Pre/Post Dialysis Refused 233.993370000277 BP Diastolic BP Location Tested BP Systolic [...] Type Weight in lbs Pre/Post Dialysis Refused 235.812652491012 BP Diastolic BP Location Tested BP Systolic [...] Type Weight in lbs Pre/Post Dialysis Refused 236.129919095198 BP Diastolic BP Location Tested BP Systolic [...] Type Weight in lbs Pre/Post Dialysis Refused 238.057079532571 BP Diastolic BP Location Tested BP Systolic [...] Type Weight in lbs Pre/Post Dialysis Refused 241.76011310507 BP Diastolic BP Location Tested BP Systolic [...] At Estimated Date of Delivery false Thalassemia (British, Cymro, Mediterranean, Or Background): MCV < 80 false Neural Tube Defect (Meningomyelocele, Spina Bifi da, Or Anencephaly) false Congenital Heart Defect false Down Syndrome false Riccardo-Sachs (eg, Mormon, Cajun, Honduran-Liberian) f alse Shira Disease false Sickle Cell Disease Or Trait () false Hemophilia Or Other Blood Disorders false Muscular Dystrophy false Cystic Fibrosis false Gustavus's Chorea false Mental Retardation/Autism false If Yes, [...] By 02/03/2017 Anticipated course o f care [facility] 02/03[facility]2017 Intimate partner violence [facility]02/03/2017 Environmental/work [facility] 02/03/2017 [facility] Nutrition counseling ; special diet; dietary precautions (mercury, listeriosis) [facility] Childbirth classes/h ospital facilities given handout for classes at [facility] at initial ob visit [facility]/03/2017 HIV and other routin e tests at initial ob visit [facility] Risk factors identif ied by history [facility] 02/03/2017 Weight gain counseling rhunl ey1 02/03/2017 Exercise [place] [address] 02/03/2017 Teratogens [facility] 02/03/2017 Use of any medicatio ns (including supplements, vitamins, herbs, or OTC drugs) [facility] 02/03/2017 will try breast feeding u nley02/03/2017 Sexual activity [place] [address] 02/03/2017 Tobacco/smoking cess ation counseling (ask, advise, assess, assist, and arrange) [place] [address] 02/03/2017 Illicit/recreational drugs [facility] 02/03/2017 Dental care given dental con sent at initial ob visit [facility] 02/03/2017 Travel [facility] 02/03/2017 Seat belt use [facility] 02/03/2017 Indications for ultrasonography [place] [address] 02/03/2017 Avoidance of saunas or hot tubs [place] [address] 02/03/2017 Toxoplasmosis precau tions (cats/raw meat) [place] [address] Second Trimester Discussed Date Discussion Item Discussion Note Discuss ed By 07/26/2017 Selecting a care provider Jenise Ryder MD [facility] vgvowhvi53 07/26/2017 family planning/tubal sterilization BCP's [id number] 07/26/2017 Depression screening (when indicated) 07/26/2017 Abnormal lab values [facility] 07/26/2017 Signs and symptoms o f labor [email or web address] 07/26/2017 Intimate partner violence ms 07/26/2017 Tobacco/smoking cess ation counseling (ask, advise, assess, assist, and arrange) [place] [address] Third Trimester Discussed Date Discussion Item Discussion Note Discuss ed By 07/26/2017 Intimate partner violence ms 07/26/2017 Anesthesia plans vaginal with epidu ral kaibajbd65 07/26/2017 [place] education (n ewborn screening, jaundice, SIDS/safe sleeping position, car seat) fepfhhrx14 07/26/2017 Circumcision yes qvnihsho17 07/26/2017 Postterm counseling [facility] 07/26/2017 movement monitoring given kick coun ts ydfnytjz14 07/26/[address]/bottle feeding sopxfjco52 07/26/2017 Labor signs given wtc/wlb xomikhgm84 07/26/2017 depression [facility] on07/26/2017 Family medical leave or disability forms alrpgbgr16 07/26/2017 Tobacco/smoking cess ation counseling (ask, advise, assess, assist, and arrange) 07/26/2017 Trial of labor after (TOLAC) counseling n/a [id number] 07/26/2017 Signs and symptoms o f preeclampsia [id number] Delivery Information Delivery Date Delivery Type Labor Anesthesia Weeks Gestation Incision Type Labor Labor Length Hrs Delivered By Post Complications Tubal Sterilization Discharge Date Comments [address] Arenas None false 08/16/2017 Pediatric katie: Dr. Jenise Ryder MD Discharge Information Feeding Method Contraceptive Method Maternal HG B and HCT Levels Bottle BC Pills
--- NOTE | 2025-08-10 16:28 | LDADM ---
This patient, Ashlee Hatch, was admitted to Labor/Delivery/Recovery 108 on 08/10/25 at 15:47. Plans for labor, pain management and were discussed with patient. Patient/family oriented to hospital policies and general routines including ID bracelet, bed and alarms, visiting hours, pain management, procedures, bathroom and other care routines, personal items, smoking policy, room service/diet and guest tray routines, infant security routines, and visiting hours. Patient/Family are encouraged to report perceived risks to care and to ask questions if they do not understand what they are told or what they should do. See OBIX for further documentation.
[2025-08-10 16:39] LABS: Hematocrit 39.0 % (37.0-47.0); Hemoglobin 12.8 g/dL (12.0-15.0); Immature Granulocyte Percent A 0.8 % (0-0.5); Lymphocytes Absolute Auto 2.20 K/mm3 (0.9-3.2); Mean Corpuscular HGB Conc 32.8 g/dl (32-36); Mean Corpuscular Hemoglobin 29.2 pg (26-34); Mean Corpuscular Volume 88.8 fl (80-100); Nucleated Red Blood Cells Absolute Auto 0.000 K/mm3 (0.0-0.012); Nucleated Red Blood Cells Perc 0.0 % (0.0-0.2); Platelet Count Result 250 k/mm3 (150-375); Red Blood Count 4.39 M/mm3 (4.2-5.4); White Blood Count 8.7 K/mm3 (4.5-10.0)
[2025-08-10 17:18] LABS: Syphilis IgG/IgM Antibody Non-Reactive (Nonreactive)
[2025-08-10] MEDS: AMPICILLIN SODIUM 2 GM in SODIUM CHLORIDE 0.9% IV 100 ML 200 ML IVPB (17:35)
[2025-08-10] MEDS: LACTATED RINGERS 1,000 ML 125 ML IV CONT (17:36)
--- NOTE | 2025-08-10 19:06 | PC.NURSE ---
Call placed to Dr. Rios, discussed pt history of fast labors. GBS positive, first dose of antibiotics @ 3365. SVE. Order to start pitocin closer to second dose of antibiotics around 5801-2357.
[2025-08-10] MEDS: CALCIUM CARBONATE (TUMS) 500 MG (200 MG ELEMENTAL) PO (20:00)
[2025-08-10] MEDS: OXYTOCIN 30 UNITS/NS 500 ML 30 UNITS/500 ML BAG IV CONT (20:30)
[2025-08-10] MEDS: AMPICILLIN SODIUM 1 GM in SODIUM CHLORIDE 0.9% IV 50 ML 100 ML IVPB (21:29)
[2025-08-10] MEDS: fentaNYL CITRATE INJ (*CRX) 100 MCG/2 ML VIAL IV PUSH (22:18)
[2025-08-10] MEDS: ONDANSETRON INJ 4 MG/2 ML VIAL IV PUSH (23:42)
[2025-08-11] VITALS (67 sets, daily range): BP systolic 86–142; BP diastolic 56–85; PULSE 61–99; RESP 16–18; TEMP 36.2–37.1; O2SAT 98–100
[2025-08-11] MEDS: fentaNYL CITRATE INJ (*CRX) 100 MCG/2 ML VIAL IV PUSH (00:31)
[2025-08-11] MEDS: AMPICILLIN SODIUM 1 GM in SODIUM CHLORIDE 0.9% IV 50 ML 100 ML IVPB (05:26)
[2025-08-11] MEDS: LACTATED RINGERS 1,000 ML 125 ML IV CONT (05:27)
--- NOTE | 2025-08-11 07:35 | WPDHPUPDATE1 ---
History and Physical Update Update Date/Time: 08/11/25 07:35 History and Physical has been reviewed, including an updated exam of the patient. There are NO changes in the patient's condition. Risks, benefits, and alternatives have been discussed and questions answered. Patient agrees to proceed with procedure. -late transfer of care at 19 wk- care of Drew -[facility]- ppx at 36w -1 hr 148, normal 3 hr GTT -Pt known GBS carrier ABX at delivery -admit to L&D -pitocin IOL -continuous EFM
--- NOTE | 2025-08-11 07:35 | PM.OBPRVD ---
OB - Vaginal Delivery Note Procedure Delivery date: 08/11/25 Induction method: Per Pitocin Protocol Delivery augmentation: Rupture of Membranes Delivery monitor: External FHT and External Uterine Route of delivery: Episiotomy description: None Laceration Description: None Specimen: No Quantitative Blood Loss (ml): 200 Anesthesia type: None Disposition: Floor Complications: No immediate complications Narrative: Patient pushed for a spontaneous vaginal delivery. The fetus was delivered atraumatically and placed on the maternal abdomen. The cord was clamped and cut after 1 minute of life. The cord was double clamped and cut and a segment of cord was collected for cord gases. Cord blood was collected for blood type and Coomb's testing. The placenta delivered spontaneously and was noted to be intact. The perineum was inspected and noted to be intact. The fundus was noted to be firm and good hemostasis was noted. The mom and infant were stable in the delivery room. Baby Date of : 08/[birth year]/25 Gestational Age by Date: 39 Infant gender: Male presentation: vertex position: Right Occiput Anterior Placenta delivery description: Spontaneous Cord Vessel Description: 3 Vessels score one minute: 8 score five minutes: 9
[2025-08-11] MEDS: OXYTOCIN 30 UNITS/NS 500 ML 30 UNITS/500 ML BAG 125 UNITS IV CONT (07:59)
[2025-08-11] MEDS: WITCH HAZEL 40 PADS 1 PAD TOPICAL ×2 (09:58→16:04)
[2025-08-11] MEDS: BENZOCAINE 20% AER SPR (*SP) 56 GM CAN 1 SPRAY TOPICAL (09:59)
--- NOTE | 2025-08-11 10:05 | OBPPTRN ---
Patient transferred to post room #285 via wheelchair. Support person present. Oriented to unit, room, information board, rooming in, admission packet and security measures. Patient verbalizes understanding.
[2025-08-11] MEDS: IBUPROFEN 600 MG TABLET PO ×2 (10:13→16:03)
[2025-08-11] MEDS: DOCUSATE SODIUM 100 MG CAPSULE PO (16:03)
[2025-08-12] MEDS: IBUPROFEN 600 MG TABLET PO (01:00)
[2025-08-12 04:15] VITALS: BP 125/81; PULSE 70; RESP 16; TEMP 36.2; O2SAT 100
[2025-08-12 05:24] LABS: Hematocrit 36.6 % (37.0-47.0); Hemoglobin 11.8 g/dL (12.0-15.0)
[2025-08-12 08:05] VITALS: BP 129/82; PULSE 68; RESP 18; TEMP 36.4; O2SAT 100
--- NOTE | 2025-08-12 08:14 | P.DS_ITS ---
DS: Admitting Diagnosis Discharge Date 08/12/25 Admitting Diagnosis intrauterine at term DS: Discharge Diagnosis Discharge Diagnosis (1) Normal vaginal delivery: Code(s): O80 - Encounter for full-term uncomplicated delivery Status: Acute OB - DS: Summary OB Procedures : None OB Procedures Intrapartum: Spontaneous Vag Delivery OB Procedures: : None Peripartum Data Laceration Description: None Episiotomy description: None Status at Discharge Functional status at discharge: independent ambulation Overall status at discharge: patient is back to baseline Time Spent with Patient Time attestation: Total time spent providing and/or coordinating discharge services: Time spent: Less than 30 minutes Exam Const: General: comfortable and no acute distress Resp: Effort & Inspection: normal respiratory effort Auscultation: clear to auscultation bilaterally Cardio: Rate: regular rate GI: GI Palp: Yes Soft to palpation Auscultation: normal bowel sounds Other: Fundus firm below umbilicus Psych: Appearance: grossly normal Mental Status: mental status grossly normal Affect: normal affect DS: Data Data Completed and Pending Labs on day of discharge: Labs from last 24 hours 08/12/25 04:12 Hgb 11.8 L Hct 36.6 L Discharge Plan Discharge Discharging Clinician: Seth Rios Patient Disposition: Home Activity: as tolerated and pelvic rest Diet: regular Patient Instructions: Antibiotic Form, Vaginal Delivery (DC) Patient Language: Mohawk Stand Alone Forms: General Discharge Information Follow-up/Referrals: Seth Rios MD [Physician, [facility]] - 4 Weeks Discharge Medications: New ibuprofen 600 mg tablet 600 mg PO Q6H PRN (Reason: pain) Qty: 30 0RF acetaminophen 500 mg tablet 500 mg PO Q6H PRN (Reason: pain) Qty: 30 0RF Continued acyclovir 400 mg tablet 400 mg PO BID Qty: 60 1RF Daily [phone] mg-mcg-mg Combo Pack 1 pkg PO DAILY Date of admission: 08/10/25 15:47 Primary Care Provider: OLIVIERKayla,Healthcare Admitting Provider: Seth Rios Attending physician on admission: Seth Rios Condition: Stable
[2025-08-13 14:48] VITALS: BP 116/57; PULSE 65; RESP 18; TEMP 37; O2SAT 100
== END 2025-08-12 12:30 | disposition home or self-care (01) | DRG 560 ==
LOC: ANHLDR 15:52 → ANHOB2 08-11 10:08
PROVIDERS: Admitting Provider Student in an Organized Health Care Education/Training Program; Visit Provider Student in an Organized Health Care Education/Training Program
DX: O99.824 Streptococcus B carrier state complicating childbirth (principal); Z3A.39 39 weeks gestation of pregnancy; Z37.0 Single live birth
CPT/HCPCS: 36415; 85014; 85018; 85025; 86593; 86850; 86900; 86901; A9270; J0290; J2405; J2590; J3010; J7120